=== PATIENT | male | born 1965 | race Hispanic/Latino ===

== ENCOUNTER 2017-04-16 10:59 | Inpatient (IN) | payer OTHER ==
[2017-04-16] VITALS (12 sets, daily range): BP systolic 107–144; BP diastolic 66–80; PULSE 80–103; RESP 17–32; O2SAT 89–98
[~2017-04-16] VITALS: Ht 172.7 cm; Wt 83.2 kg
[~2017-04-16 10:59] MED LIST: NPR500T PO; NYST15OI TP; OXYC5TAB72 PO
--- NOTE | 2017-04-16 11:13 | ED.REPORT ---
HPI-Dyspnea / Wheezing Date of Service April 16, 2017 ED Provider: Dionicio Garcia MD A healthy 52 year old male who is a life-long nonsmoker presents to the ER accompanied by his complaining of three days of shortness of breath. Associated symptoms include mild substernal discomfort, fatigue, malaise, hemoptysis, and productive cough with white sputum. Yesterday he awakened with headache, subjective fever, chills, and diaphoresis. Symptoms have been treated with Tylenol and ibuprofen. Patient was referred to the department from his urgent care visit just prior to arrival for O2 saturation of 83% on room air. Nursing Notes Stated Complaint: SOB Chief Complaint: Respiratory Distress Nursing Notes Reviewed: Yes Allergies: Coded Allergies: No Known Allergies (Verified , 03/20/16) Scheduled Nystatin/Triamcin (Nystatin-Triamcinolone Ointm) 15 Gm Oint...g. 15 GM TP BID Scheduled PRN Naproxen (Naproxen) 500 Mg Tab 500 MG PO BID PRN PRN For Pain oxyCODONE (oxyCODONE) 5 Mg Tablet 10-20 MG PO Q6H PRN PRN For Moderate Pain General Time Seen by MD: 11:12 Chief Complaint Shortness of breath Hx Obtained From: Patient Arrived By: Walk-in Sudden in Onset?: No Onset Occurred: 3 days ago Symptom Duration: Since onset Location: : Substernal Quality: Painful Severity: Current: Mild Severity: Maximum: Mild Associated with: Reports: Cough, Fever, Hemoptysis Context Related History: Denies: Pulmonary embolism Similar Sx Previous: No Past Medical History Past Medical History Right upper extremity thrombophlebitis Denies: Asthma, COPD, Cancer, Congestive heart failure, Coronary artery disease , Diabetes mellitus, Hypertension, Stroke, Transient ischemic attack Denies: Atrial fibrillation Past Surgical History Hiatal hernia surgery Smoking History Never Smoker Social History Alcohol Use: Denies alcohol use Drug Use: Denies drug use Ambulatory Status Independent Review of Systems Constitutional: Reports: Chills, Fatigue, Fever, Malaise Respiratory: Reports: Hemoptysis, Prod cough, white, Shortness of breath Cardiovascular: Reports: Chest pain Skin: Reports Diaphoresis Complete sys rev & neg: except as marked. GI: Denies: Abdominal pain, Constipation, Diarrhea, Hematemesis, Hematochezia, Nausea, Vomiting Neurologic: Reports: Headache Physical Exam Initial Vital Signs Vital Signs (First) Date Time Temp Pulse Resp B/P Pulse Ox O2 Delivery O2 Flow Rate FiO2 04/16/17 11:01 36.4 91 17 118/75 89 Nasal Cannula 4 Initial VS: Reviewed Head / Eyes: Atraumatic, Normocephalic Abdomen / GI: Soft, Non-tender, No guarding, No rebound, No distention Extremities: Vascular intact, Neuro intact, No swelling, No tenderness Skin: Warm, Dry, No cyanosis Neurologic: Alert, Oriented, Nonfocal General/Constitutional: Awake, Alert, Well developed, Well nourished Neck: Atraumatic, Supple, No meningismus, Full range of motion, No swelling, Non-tender, No masses Respiratory / Chest: No rhonchi, No wheezing, No stridor Rales / Rhonchi: Positive: Rales L up to 2/3, Rales R base (up to 1/2) Tachypneic. Cardiovascular: Heart rate NL, Regular rhythm, Heart sounds NL, Peripheral circulation NL Interpretation & Diagnostics Lab Results Interpretation Result Diagram: 04/16/17 1145 04/16/17 1145 Test 04/16/17 11:45 04/16/17 12:25 White Blood Count 10.8th/mm3 (3.8-10.1) Red Blood Count 5.23mil/mm3 (4.40-5.80) Hemoglobin 16.0g/dL (13.8-17.2) Hematocrit 45.8% (41.0-50.0) Mean Corpuscular Volume 87.6fL (81-100) Mean Corpuscular Hemoglobin 30.6pg (27.0-35.0) Mean Corpuscular Hemoglobin Concent 34.9% (32.0-37.0) Red Cell Distribution Width 12.6% (12.3-15.4) Platelet Count 290bil/L (150-400) Neutrophils (%) (Auto) 85.4% (40-74) Lymphocytes (%) (Auto) 9.1% (14-46) Monocytes (%) (Auto) 3.7% (4-12) Eosinophils (%) (Auto) 1.4% (0-5) Basophils (%) (Auto) 0.2% (0-3) Sodium Level 139mEq/L (134-144) Potassium Level 3.8mEq/L (3.5-5.2) Chloride Level 102mEq/L (97-108) Carbon Dioxide Level 20mmol/L (18-29) Blood Urea Nitrogen 14mg/dL (6-24) Creatinine 0.87mg/dL (0.76-1.27) Estimat Glomerular Filtration Rate 97mL/min (>59) Glucose Level 114mg/dL (60-99) Calcium Level 9.4mg/dL (8.5-10.1) Total Bilirubin 0.6mg/dL (0.0-1.2) Aspartate Amino Transf (AST/SGOT) 26U/L (0-50) Alanine Aminotransferase (ALT/SGPT) 11U/L (0-44) Alkaline Phosphatase 82U/L (25-150) Troponin T 0.010ug/L (0.0-0.011) Pro-B-Type Natriuretic Peptide 257.0pg/mL (0-121) Total Protein 7.4g/dL (6.4-8.4) Albumin 3.3g/dL (3.4-5.0) Procalcitonin 0.19ng/mL (0.00-0.08) Lactic Acid Level 1.2mmol/L (0.4-2.0) ECG Interpretation ECG Interpretation: Sinus rhythm, rate 79 Time: 13:00 Interpreted by: ED physician X-Ray Chest Interpretation Chest Xray Interpretation: FINDINGS: Surgical changes and devices: None. Lungs and pleura: No pleural effusions or pneumothorax. Severe coarse bilateral left greater than right pulmonary opacity is present. Mediastinum: Mediastinal contours appear normal. Heart size is normal. Bones and chest wall: No suspicious bony lesions. Overlying soft tissues appear unremarkable. IMPRESSION: Severe bilateral pneumonia. Dictated by: Celeste Bynum M.D. on 04/16/2017 at 12:19 Approved by: Celeste Bynum M.D. on 04/16/2017 at 12:20 View: Portable, 1 view Interpretation / Wet Read by: Interpret - Radiologist CT Chest Interpretation IMPRESSION: 1. No pulmonary embolus. 2. Severe diffuse pneumonia. 3. Coronary artery disease. Dictated by: Celeste Bynum M.D. on 04/16/2017 at 12:51 Approved by: Celeste Bynum M.D. on 04/16/2017 at 12:52 Study type: CT pulm angiogram Interpretation / Wet Read by: Interpret - Radiologist Re-Eval/Medical Decision Source of Hx: Old records Re-Evaluation/Progress : Time of Eval: 12:10 Re-Evaluation/Progress Note: Completed physical examination and discussed need for admission. Patient is amenable to the plan. All other questions addressed. Consultation : Referral / Consult Name: Nestor Ring Consulted With: Hospitalist Call Returned at: 12:58 Summer Intern: Agrees with eval, Agrees with plan, Accepts admit Counseled Regarding: Diagnosis, Lab results, Need for admission Discharge & Departure Impression: Primary Impression: Pneumonia Disposition: ADMITTED TO HOSPITAL Discharge Condition All VS Reviewed: Yes Condition: Stable Referrals: Massimo Queen DO (PCP) Landen Attestation Portions of this note were transcribed by El Garces. I, Dr. Garcia, personally performed the history, physical exam and medical decision-making; I reviewed and confirmed the accuracy of the information in the transcribed note. Signed by: Landen Su, 04/16/2017 at 13:00 copies to: Massimo Queen Kirk H MD April 16, 2017 11:13 EL GARCES April 16, 2017 11:57
[2017-04-16 11:57] LABS: BASOPHILS % (AUTO) 0.2 % (0-3); EOSINOPHILS % (AUTO) 1.4 % (0-5); MONOCYTES % (AUTO) 3.7 % (4-12); Mean Corpuscular Hemoglobin 30.6 pg (27.0-35.0); Mean Corpuscular Volume 87.6 fL (81-100); NEUTROPHILS % (AUTO) 85.4 % (40-74); Platelet Count 290 bil/L (150-400)
[2017-04-16 12:08] LABS: TROPONIN T 0.01 ug/L (0.0-0.011)
--- NOTE | 2017-04-16 12:21 | DRSVH ---
PROCEDURE: X-RAY CHEST ONE VIEW, PORTABLE ([id number]) INDICATIONS: CHEST PAIN TECHNIQUE: One view of the chest was acquired. COMPARISON: None. FINDINGS: Surgical changes and devices: None. Lungs and pleura: No pleural effusions or pneumothorax. Severe coarse bilateral left greater than ri ght pulmonary opacity is present. Mediastinum: Mediastinal contours appear normal. Heart size is normal. Bones and chest wall: No suspicious bony lesions. Overlying soft tissues appear unremarkable. IMPRESSION: Severe bilateral pneumonia. Dictated by: Celeste Bynum M.D. on 04/16/2017 at 12:19 Approved by: Celeste Bynum M.D. on 04/16/2017 at 12:20
[2017-04-16] MEDS ORDERED: 0.9% Sodium Chloride 1,000 ML IV ONE (12:43)
[2017-04-16] MEDS ORDERED: Azithromycin Inj 500 MG in Dextrose 5% 250 ML IV ONE (12:45)
[2017-04-16] MEDS ORDERED: cefTRIAXone Inj 2,000 MG in Dextrose 5% Minibag Plus 50 ML IV ONE (12:45)
--- NOTE | 2017-04-16 12:54 | DRSVH ---
PROCEDURE: CT ANGIO CHEST PULMONARY EMBOLISM ([id number]) INDICATIONS: INFILTRATE TECHNIQUE: After the administration of intravenous contrast, 2 mm thick sections acquired from the pulmonary api aggie to the posterior costophrenic angles. 3-dimensional maximum intensity projection (MIP) coronal a nd sagittal reformats were then acquired through the thorax. For radiation dose reduction, the follo wing was used: automated exposure control, adjustment of mA and/or kV according to patient size. COMPARISON: [facility], CR, XR CHEST 1VW (PORTABLE), 04/16/2017, 11:51. FINDINGS: Image quality: Excellent. Pulmonary arteries: Pulmonary arteries are normal in size, and demonstrate no intraluminal filling d efects to suggest central pulmonary embolism. Lungs and pleura: Severe patchy bilateral groundglass and air space opacities are present, as seen by plain film No pleural effusions or pneumothorax. Central and peripheral airways are patent. Mediastinum: Heart size is enlarged, without pericardial effusion. There is calcification of the cor onary vasculature. No mediastinal or hilar adenopathy. Thoracic aorta is normal in caliber and enhan cement. Esophagus is normal in caliber, without hiatal hernia. Bones and chest wall: No suspicious bony lesions. Ribs and thoracic spine appear intact throughout. Thyroid gland is grossly unremarkable as visualized. No axillary or supraclavicular adenopathy. Abdomen: Visualized upper abdominal solid organs appear normal in the early arterial phase of enhanc ement. IMPRESSION: 1. No pulmonary embolus. 2. Severe diffuse pneumonia. 3. Coronary artery disease. Dictated by: Celeste Bynum M.D. on 04/16/2017 at 12:51 Approved by: Celeste Bynum M.D. on 04/16/2017 at 12:52
[2017-04-16] MEDS ORDERED: NAPR250T PO (13:52)
[2017-04-16] MEDS ORDERED: Alum-Mag Hydrox-Simeth 30 mL Suspension PO PRN ×2 (14:15→14:20)
[2017-04-16] MEDS ORDERED: Polyethylene Glycol (PEG) 17 Gm Powder PO PRN (14:15)
[2017-04-16] MEDS ORDERED: Ondansetron 2 mg/mL 2 mL Inj IVPUSH PRN ×2 (14:15→14:20)
--- NOTE | 2017-04-16 14:25 | NUR ---
Admission Pt arrived on [facility] to Rm 3030. A/Ox3 accompanied by spouse, no complains of pain, 14 L O2 via Oxy mask sating 90%. Pt able to transfer self from [place] to bed with minimal assistance. IV abx infusing at 200 mls/hr. Oriented to room, call light, and visiting hours. Call light with in reach, will continue to monitor.
--- NOTE | 2017-04-16 14:53 | PCM.HPMED ---
Subjective Date of Service April 16, 2017 Primary Provider: Admitting Physician: Nestor Ring Primary Care Physician: Massimo Queen DO Attending Physician: Nestor Ring Chief Complaint: shortness of breath, not feeling well History of Present Illness: 52 year old male who is generally healthy with past medical history notable for hypercholesterolemia and low testosterone presents with 2 days of ongoing and worsening generalized malaise, cough, fever, chills, and shortness of breath. He first noted getting tired with minimal exertion about 2 days ago. Then last night had subjective fever and this morning had fever and chills. He was having non-productive cough initially but this morning thinks he saw some blood in his sputum. He initially presented to urgent care and was noted to be hypoxemic on room air and was sent to ED. Patient notes that after receiving supplemental oxygen he started feeling much better and a headache that he was developing resolved. He denies any recent sick contacts or travel other than attending a one week ago at [place]. He denies any prior episodes of pneumonia or respiratory issues. He does endorse about 10 lb weight loss in past couple of months which he attributes to change in his diet. He further reports chronic tingling in his finger and right leg over the past 2 years that is being worked up by his primary care provider as outpatient. In ED he has received a dose of IV Rocephin and Azithromycin. Review of Systems: Constitutional: Negative, except as otherwise mentioned in the history above. Ophthalmologic: Negative, except as otherwise mentioned in the history above. Cardiovascular: Negative, except as otherwise mentioned in the history above. Respiratory: Negative, except as otherwise mentioned in the history above. Gastrointestinal: Negative, except as otherwise mentioned in the history above. Genitourinary: Negative, except as otherwise mentioned in the history above. Musculoskeletal: Negative, except as otherwise mentioned in the history above. Neurological: Negative, except as otherwise mentioned in the history above. Psychiatric: Negative, except as otherwise mentioned in the history above. Hematologic/Lymphatic: Negative, except as otherwise mentioned in the history above. Allergic/Immunologic: Negative, except as otherwise mentioned in the history above. Allergies Coded Allergies: No Known Allergies (Verified , 03/20/16) Home Medications Denies any home meds Exam Vital Signs & I/O Vital Sign- Last 8 Hours Date Time Temp Pulse Resp B/P Pulse Ox O2 Delivery O2 Flow Rate FiO2 04/16/17 14:25 37.1 89 24 107/72 90 OxyMask 14.00 04/16/17 13:35 36.6 80 20 136/77 96 Simple Mask 12 04/16/17 11:01 36.4 91 17 118/75 89 Nasal Cannula 4 Lab & Micro Results Laboratory Tests Test 04/16/17 11:45 04/16/17 12:25 White Blood Count 10.8th/mm3 (3.8-10.1) Red Blood Count 5.23mil/mm3 (4.40-5.80) Hemoglobin 16.0g/dL (13.8-17.2) Hematocrit 45.8% (41.0-50.0) Mean Corpuscular Volume 87.6fL (81-100) Mean Corpuscular Hemoglobin 30.6pg (27.0-35.0) Mean Corpuscular Hemoglobin Concent 34.9% (32.0-37.0) Red Cell Distribution Width 12.6% (12.3-15.4) Platelet Count 290bil/L (150-400) Neutrophils (%) (Auto) 85.4% (40-74) Lymphocytes (%) (Auto) 9.1% (14-46) Monocytes (%) (Auto) 3.7% (4-12) Eosinophils (%) (Auto) 1.4% (0-5) Basophils (%) (Auto) 0.2% (0-3) Sodium Level 139mEq/L (134-144) Potassium Level 3.8mEq/L (3.5-5.2) Chloride Level 102mEq/L (97-108) Carbon Dioxide Level 20mmol/L (18-29) Blood Urea Nitrogen 14mg/dL (6-24) Creatinine 0.87mg/dL (0.76-1.27) Estimat Glomerular Filtration Rate 97mL/min (>59) Glucose Level 114mg/dL (60-99) Calcium Level 9.4mg/dL (8.5-10.1) Total Bilirubin 0.6mg/dL (0.0-1.2) Aspartate Amino Transf (AST/SGOT) 26U/L (0-50) Alanine Aminotransferase (ALT/SGPT) 11U/L (0-44) Alkaline Phosphatase 82U/L (25-150) Troponin T 0.010ug/L (0.0-0.011) Pro-B-Type Natriuretic Peptide 257.0pg/mL (0-121) Total Protein 7.4g/dL (6.4-8.4) Albumin 3.3g/dL (3.4-5.0) Procalcitonin 0.19ng/mL (0.00-0.08) Lactic Acid Level 1.2mmol/L (0.4-2.0) Microbiology 04/16/17 Blood Culture, Received Pending Result Diagram: 04/16/17 1145 04/16/17 1145 PMH 1. Hypercholesterolemia 2. Low testosterone level Surgical History Hernia repair Family History Sister with colon cancer in her 70's. Father had stroke. Social History Hx Alcohol Use: Yes ("Sometimes") Hx Substance Use: No Hx Tobacco Use: No Smoking Status: Never Smoker Exam Vital Signs Vital Sign - Last Date Time Temp Pulse Resp B/P Pulse Ox O2 Delivery O2 Flow Rate FiO2 04/16/17 14:25 37.1 89 24 107/72 90 OxyMask 14.00 General: Alert, Oriented X3, Cooperative, No Acute Distress Head: Normal Eyes: PERRLA, EOMI, Scleral Anicteric Nose: Mucous Membr Moist/Brodnax Mouth: Mucous Membr Moist/Brodnax Neck: Supple Chest & Lungs: Chest Wall Normal, Clear to auscultation & percussion Cardiovascular: Regular Rate/Rhythm Pulses: NL carotid, radial, femoral, DP, PT Abdomen: Non-tender, Non-distended, Normoactive bowel tones Extremities: No cyanosis/clubbing/edma bilat Skin: Other (no ulcer or rash) Neurological: Grossly Neurologically Intact, Normal Speech Lymphatic: Other Lymph Nodes (no significant lymphadenopathy) Lab and Diagnostics Result Diagram: 04/16/17 1145 04/16/17 1145 X-Rays, CTs and MRIs Date of Service: 04/16/17 1150 PROCEDURE: X-RAY CHEST ONE VIEW, PORTABLE ([id number]) IMPRESSION: Severe bilateral pneumonia. Dictated by: Celeste Bynum M.D. on 04/16/2017 at 12:19 Approved by: Celeste Bynum M.D. on 04/16/2017 at 12:20 Date of Service: 04/16/17 1214 PROCEDURE: CT ANGIO CHEST PULMONARY EMBOLISM ([id number]) IMPRESSION: 1. No pulmonary embolus. 2. Severe diffuse pneumonia. 3. Coronary artery disease. Dictated by: Celeste Bynum M.D. on 04/16/2017 at 12:51 Approved by: Celeste Bynum M.D. on 04/16/2017 at 12:52 12-lead ECG SR. no significant ST elevation/depression. Assessment & Plan 52 year old male who is generally healthy with past medical history notable for hypercholesterolemia and low testosterone presents with 2 days of ongoing and worsening generalized malaise, cough, fever, chills, and shortness of breath. # Acute community acquired pneumonia, present on admission. - Continue with IV Ceftriaxone and Azithromycin started in ED - Check sputum culture - Urine legionella and strep Ag - Respiratory PCR - Continue with supportive care # Acute hypoxic respiratory failure, present on admission. - Due to bilateral pneumonia noted above - Continue pneumonia treatment noted above - Supplemental Oxygen to keep sat greater than 90% # Reported possible hemoptysis prior to presentation - Likely due to pneumonia noted above - Followup h/h - For DVT prophylaxis will place on SCD instead of heparin for now # History of hypercholesterolemia. - Followed by his primary care provider as outpatient. Will defer further management to outpatient setting for now # History of low testosterone. - Followed by his primary care provider as outpatient. Will defer further management to outpatient setting for now Expected length of hospital stay is greater than 2 midnights and likely 2-3 days GI Prophylaxis: Not indicated VTE Prophylaxis: SCDs Resuscitation Status: CPR: Attempt Resuscitation (discussed and verified with patient) Time spent 60 min Nestor Ring April 16, 2017 14:53
--- NOTE | 2017-04-16 16:46 | NUR ---
Increased RR/decreased sats Resp Rate increased to 24. O2 sats between 88-90% on 14 L O2 via Oxy mask. RT contacted, assessed pt, recommends Pt be placed on Hi flow mask. MD aware, pt to be transferred to [facility]. IV Morphine given. Will continue to monitor. Addendum: 04/16/17 at 1709 by REJI BECKFORD RN Report called to Jessica Curtis Pt to be transferred to room 2006. Belongings gathered for transfer, spouse at bedside.
--- NOTE | 2017-04-16 17:41 | ABG ---
DateTimeAnalyzed 17:28:00 -_ pH ____7.473 - 7.350 7.450 pCO2 ___30.9__ -mmHg 35.0 45.0 pO2 ___75.3__ -mmHg 69.0 116 HCO3- ___22.3__ -mmol/L 22.0 26.0 ABE ____0.1__ -mmol/L -2.0 2.0 tHb ___14.8__ -g/dL O2Hb ___92.8__ -% COHb ____2.4__ -% MetHb ____0.9__ -% sO2 ___96.0__ -% 25.0 FIO2 __100.0__ -% Drawn By jmw - Date/Time Notified____ 17:40:00 -_ Liter_Flow ___40.0__ -L/min Oxygen Device 1 _HIGHFLOW - Notified By jmw - Notified Whom DR TALEGHANI - B 755 -mmHg tO2 ___19.3__ -Vol% Edvin test _Positive -
--- NOTE | 2017-04-16 18:06 | NUR ---
P: Respiratory Distress I: Pt brought down from 3rd floor on NRB 15 liters with sats 90%. ABG drawn and PO2 70's. Dr. Renteria called and orders for ABG and PCC tele received. Pt sips of water only until effectiveness of high flow evaluated. Pt and understand need for NPO and possibility of bipap or intubation if pt worsens. Saline lock x2 patent without redness or swelling at the site. Voided about 500cc /urinal but pt's emptied it. Pt needs UA and strict I&O and both and pt educated about that. Cup placed at bedside for sputum sample. PCR nasal swab done. High flow 100% with 40Liters and sats 95%. Continuous sats on at bedside. ST 100's. Temp 37.4. Pt received Morphine upstairs that he states helped with his extreme SOB. E: Guarded S: Alert and Oriented. Uses call light appropriately. Frequent rounding.
[2017-04-16 21:20] LABS: APPEARANCE,URINE CLEAR (CLEAR,HAZY); COLOR,URINE YELLOW (YELLOW); OCCULT BLOOD,URINE NEGATIVE (NEGATIVE); UROBILINOGEN,URINE NORMAL (NORMAL)
[2017-04-17] VITALS (13 sets, daily range): BP systolic 103–134; BP diastolic 67–74; PULSE 83–103; RESP 24–40; O2SAT 90–100
[2017-04-17 03:31] LABS: BASOPHILS % (AUTO) 0.2 % (0-3); EOSINOPHILS % (AUTO) 2.1 % (0-5); MONOCYTES % (AUTO) 4.3 % (4-12); Mean Corpuscular Volume 88.6 fL (81-100); NEUTROPHILS % (AUTO) 84.2 % (40-74); Platelet Count 244 bil/L (150-400)
[2017-04-17 03:47] LABS: INR 1.05 ratio
[2017-04-17 03:54] LABS: Magnesium 2.1 mg/dL (1.6-2.6)
--- NOTE | 2017-04-17 05:29 | NUR ---
Pain/ Respiratory: Pt c/o intermittent headache and lower back pain not controlled by Tylenol. MD notified and order relieved for PO Roxicodone. Med given with good results- pt sleeping throughout majority of the night. Pt remains on high lex at 60L and 100%- sp02 monitored via [employer] TESTING TECHNICIAN. Pt does desat into the low 80s with even minimal activity. Bedrest encouraged.
--- NOTE | 2017-04-17 11:26 | PCM.PNMED ---
Subjective Date of Service April 17, 2017 Subjective The patient continues to have productive cough and intermittent fevers and chills but is overall improving. His appetite is coming back. He has a mild headache. He feels weak. No nausea, or diarrhea. No abdominal pain. No overnight events Exam Vital Signs Vital Sign - Last Date Time Temp Pulse Resp B/P Pulse Ox O2 Delivery O2 Flow Rate FiO2 04/17/17 09:25 83 04/17/17 07:44 36.5 28 110/72 97 high flow 100 04/17/17 07:22 60 Intake and Output 04/16/17 04/16/17 04/17/17 Cumulative From/Thru 15:00 23:00 07:00 04/16/17 11:01 - 04/17/17 06:07 Intake Total 109 ml 400 ml 509 ml Output Total 300 ml 300 ml Balance 109 ml 100 ml 209 ml Intake Oral 400 ml 400 ml IV Total 109 ml 109 ml Output Urine Total 300 ml 300 ml # Voids 1 1 Exam Alert and oriented -3, no distress. Fluent speech Anicteric sclera. Lungs are notable for diffuse rales with normal rate and effort, he is on high flow nasal cannula oxygen. Heart is regular without murmur gallop or rub Abdomen soft nontender, flat Extremities are free of edema. Skin is free of rash or lesions. IVs and Medications Medications Reviewed: Medications were reviewed in detail Lab and Diagnostics Result Diagram: 04/17/17 0245 04/17/17 0245 X-Rays, CTs and MRIs Date of Service: 04/16/17 1150 PROCEDURE: X-RAY CHEST ONE VIEW, PORTABLE ([id number]) IMPRESSION: Severe bilateral pneumonia. Dictated by: Celeste Bynum M.D. on 04/16/2017 at 12:19 Approved by: Celeste Bynum M.D. on 04/16/2017 at 12:20 Date of Service: 04/16/17 1214 PROCEDURE: CT ANGIO CHEST PULMONARY EMBOLISM ([id number]) IMPRESSION: 1. No pulmonary embolus. 2. Severe diffuse pneumonia. 3. Coronary artery disease. Dictated by: Celeste Bynum M.D. on 04/16/2017 at 12:51 Approved by: Celeste Bynum M.D. on 04/16/2017 at 12:52 12-lead ECG SR. no significant ST elevation/depression. Assessment & Plan 52 year old male who is generally healthy with past medical history notable for hypercholesterolemia and low testosterone presents with 2 days of ongoing and worsening generalized malaise, cough, fever, chills, and shortness of breath. # Acute community acquired pneumonia, present on admission. Mildly improved. - Continue with IV Ceftriaxone and Azithromycin started in ED - Check sputum culture - Urine legionella and strep Ag - Respiratory PCR - Continue with supportive care Will obtain a 2-D echo as well to assess ventricular function and a sputum culture. # Acute hypoxic respiratory failure, present on admission. Stable on high flow oxygen, nasal cannula. - Due to bilateral pneumonia noted above - Continue pneumonia treatment noted above - Supplemental Oxygen to keep sat greater than 90% # Reported possible hemoptysis prior to presentation, resolved. CT chest angiogram negative for pulmonary embolism. - Likely due to pneumonia noted above - Followup h/h - For DVT prophylaxis will place on SCD instead of heparin for now # History of hypercholesterolemia. By mouth and stable - Followed by his primary care provider as outpatient. Will defer further management to outpatient setting for now # History of low testosterone. By mouth and stable - Followed by his primary care provider as outpatient. Will defer further management to outpatient setting for now Expected length of hospital stay is greater than 2 midnights and likely 2-3 days GI Prophylaxis: Not indicated VTE Prophylaxis: SCDs Resuscitation Status: CPR: Attempt Resuscitation (discussed and verified with patient) Edvin Melendez MD April 17, 2017 11:26
[2017-04-17] MEDS: Azithromycin Inj 500 MG in Dextrose 5% w/Vial Mate 250 ML IV SCH (13:43)
[2017-04-17] MEDS: cefTRIAXone Inj 2,000 MG in Dextrose 5% Minibag Plus 50 ML IV SCH (13:44)
--- NOTE | 2017-04-17 14:43 | DRSVH ---
[facility] [address] [place] [address] Echocardiogram Report Name: MI REED Date : 04/17/2017 Height: 68 in Hospital Exam Location: [facility] Weight: 204 lb Gender: Male BSA: 2.1 m2 : 1965 Age: 52 yrs BP: 110/72 mmHg Reason For Study: Dyspnea Ordering Physician: HOSPITALIST SVerformed By: Reji Head Referring Physician: REY DEY Interpretation Summary The left ventricle is normal in size. The ejection fraction is estimated to be 55-60%. There is a noticable interventricular septal shift that varies with respiration. Paradoxical septal motion is consistent with right ventricular pressure overload. The right ventricle is moderately dilated. The right ventricular systolic function is normal (TAPSE: 3.3 cm). There is mild tricuspid regurgitation. The right ventricular systolic pressure is estimated at 58 mmHg assuming a right atrial pressure of 8 mm Hg. There is moderate pulmonary hypertension. Procedure: A two-dimensional transthoracic echocardiogram with color flow and Doppler was performed. The study quality was technically adequate. A contrast injection of Definity was performed to improve assessment of LV function. There is no prior echocardiogram noted for this patient. The patient was in normal sinus rhythm during the exam. Left Ventricle: The left ventricle is normal in size. There is normal left ventricular wall thickness. The ejection fraction is estimated to be 55-60%. There is a noticable interventricular septal shift that varies with respiration. Paradoxical septal motion is consistent with right ventricular pressure overload. The E/E' ratio is mildly increased, suggesting possible increased filling pressures. Right Ventricle: The right ventricle is moderately dilated. The right ventricular systolic function is normal. Atria: The left atrial size is normal. The right atrium is mild to moderately dilated. A prominent eustachian valve is noted. There is no Doppler evidence for an atrial septal defect. Mitral Valve: The mitral valve leaflets are slightly calcified. Redundant elongated chordae are noted. There is no mitral regurgitation noted. Aortic Valve: The aortic valve is slightly calcified. The aortic valve is trileaflet. The aortic valve opens well. There is no aortic valve stenosis. No aortic regurgitation is present. Tricuspid Valve: The tricuspid valve is normal. There is mild tricuspid regurgitation. The right ventricular systolic pressure is estimated at 58 mmHg assuming a right atrial pressure of 8 mm Hg. There is moderate pulmonary hypertension. Pulmonic Valve: The pulmonic valve is not well seen, but is grossly normal. There is no pulmonic valvular regurgitation. Great Vessels: The aortic root is mildly dilated. The ascending aorta is at the upper limits of normal in size. The pulmonary artery is normal size. The IVC is dilated (diameter is greater than 2.1 cm) yet it collapses greater than 50% with a sniff. This suggests a right atrial pressure of 8 mm Hg. Pericardium/ Pleura There is no pericardial effusion. There is no pleural effusion. MMode/2D Measurements & Calculations LVIDd: 4.7 cm RA long axis LVOT diam LVIDs: 3.2 cm LA A2 area: 14.3 cm FS: 31.0 % LA A4 area: 15.9 cm RA area AoV Opening EPSS: 0.48 cm LA length (vol): 5.1 cm IVSd: 0.87 cm LA vol: 37.8 ml : 23.9 cm Ao root diam LVPWd: 0.95 cm LA vol index RA vol : 83.7 ml asc Aorta RA Diam: 3.4 cm IVC diam: 2.2 cm : 40.6 mm2 LV tsai. diameter/BSA LV sys. diameter/BSA TAPSE: 2.4 cm (cm/m^2): 2.3 (cm/m^2): 1.6 Doppler Measurements & Calculations Ao V2 max: 148.7 cm/sec MV E max pravin MV E/A: 1.2 TR max pravin Ao max P.8 mmHg : 67.0 cm/sec : 354.1 cm/sec Ao mean P.2 mmHg MV A max pravin TR max PG LVOT Max Pravin : 55.8 cm/sec : 50.1 mmHg : 107.5 cm/sec PA V2 max ISAC(I,D): 3.6 cm : 65.7 cm/sec sev ratio: 0.73 PA mean PG : 1.3 mmHg MV dec time: 0.19 sec Ao V2 mean LV V1 max PG PA V2 mean : 110.1 cm/sec : 55.0 cm/sec Ao V2 VTI: 23.6 cm LV V1 VTI PA pr(Accel) ISAC(V,D): 3.6 cm2 : 17.4 cm : 46.3 mmHg ISAC indexed to BSA (cm^2/m^2): 1.8 Reading Physician:PM
--- NOTE | 2017-04-17 18:29 | NUR ---
Pain/High Flow Cardiac: pt denies CP, Tele: SR 70-80s Resp: Pt reports he is having an easier time breathing especially after he cleared his nostrils this AM. RR still high at 32. SPO2 96-97% on 60L High Flow FIO2 100% at morning assessment. After discussion with RT, keeping pt NPO this aM to protect his airway while on such high flow. Pt allowed to eat this afternoon, instructed to eat slowly. morphine given this afternoon for increased RR and decreased SPO2 down to 92-93%. Pt reported he felt better, SPO2 remains 92-93% GI/: Pt denies n/v/d. very dark hermila urine this afternoon. Neuro: a/ox3. SUNG bedrest r/t resp status.
[2017-04-18] VITALS (14 sets, daily range): BP systolic 107–131; BP diastolic 62–84; PULSE 86–95; RESP 20–42; O2SAT 88–99
--- NOTE | 2017-04-18 04:52 | NUR ---
Respiratory/ Pain Pt remains on High flow @60L and 100%. sp02 monitored via TOURIST INFORMATION OFFICER. Sats low 90s, RR 20-30s. r pt does desat with even the slightest of activity. Morphine given x2 for increasing air hunger. PRN Roxicodone and tylenol given intermittently overnight for generalized head and back pain. Addendum: 04/18/17 at 0535 by PHILLIP ROSS RN Pt very labored breathing this am. States he feels like he aspirated on a sip of water. Pt made NPO. notified of pt increased respirtory efforts. ABG ordered. RT at bedside. Addendum: 04/18/17 at 0559 by PHILLIP ROSS RN ABG resulted. Dr. Sims states to place pt on BIPAP. RT notified.
--- NOTE | 2017-04-18 05:46 | ABG ---
DateTimeAnalyzed 05:41:00 -_ pH ____7.449 - 7.350 7.450 pCO2 ___36.9__ -mmHg 35.0 45.0 pO2 ___64.3__ -mmHg 69.0 116 HCO3- ___25.2__ -mmol/L 22.0 26.0 ABE ____1.9__ -mmol/L -2.0 2.0 tHb ___15.1__ -g/dL O2Hb ___91.1__ -% COHb ____1.3__ -% MetHb ____0.9__ -% sO2 ___93.2__ -% 25.0 FIO2 __100.0__ -% Drawn By blf - Date/Time Notified____ 05:46:00 -_ Spontaneous_RR ___36.0__ -b/min Liter_Flow ___60.0__ -L/min Oxygen Device 1 high flow nc - Notified By blf - Notified Whom Yumiko Roe RN - B 755 -mmHg tO2 ___19.3__ -Vol% OrderingPhysicianInitials mf - Edvin test _Positive -
[2017-04-18] MEDS: LORazepam 0.5 mg Tablet PO PRN (08:13)
--- NOTE | 2017-04-18 10:18 | PCM.PNMED ---
Subjective Date of Service April 18, 2017 Subjective He was placed on BiPAP last night is comfortable on BiPAP at 100%. He has good mentation. He denies cough. No fevers or chills overnight. He does have a headache. He denies any abdominal pain nausea vomiting or diarrhea. Overnight events included a blood gas and BiPAP. Exam Vital Signs Vital Sign - Last Date Time Temp Pulse Resp B/P Pulse Ox O2 Delivery O2 Flow Rate FiO2 04/18/17 08:00 89 36 97 100 04/18/17 07:21 36.7 124/80 BiPAP 04/18/17 04:30 60 Intake and Output 04/17/17 04/17/17 04/18/17 Cumulative From/Thru 15:00 23:00 07:00 04/16/17 11:01 - 04/18/17 05:18 Intake Total 2330 ml 800 ml 3639 ml Output Total 1550 ml 1000 ml 2850 ml Balance 780 ml -200 ml 789 ml Intake Oral 2030 ml 800 ml 3230 ml IV Total 300 ml 409 ml Output Urine Total 1550 ml 1000 ml 2850 ml # Voids 1 # Bowel Movements 0 0 Exam Alert and oriented -3, no distress. He is comfortable on BiPAP. Anicteric sclera. Lungs are clear with normal rate and effort on BiPAP, basilar rales. Heart is regular without murmur gallop or rub Abdomen soft nontender, flat Extremities are free of edema. Skin is free of rash or lesions. IVs and Medications Medications Reviewed: Medications were reviewed in detail Lab and Diagnostics Result Diagram: 04/17/17 0245 04/17/17 0245 X-Rays, CTs and MRIs Date of Service: 04/16/17 1150 PROCEDURE: X-RAY CHEST ONE VIEW, PORTABLE ([id number]) IMPRESSION: Severe bilateral pneumonia. Dictated by: Celeste Bynum M.D. on 04/16/2017 at 12:19 Approved by: Celeste Bynum M.D. on 04/16/2017 at 12:20 Date of Service: 04/16/17 1214 PROCEDURE: CT ANGIO CHEST PULMONARY EMBOLISM ([id number]) IMPRESSION: 1. No pulmonary embolus. 2. Severe diffuse pneumonia. 3. Coronary artery disease. Dictated by: Celeste Bynum M.D. on 04/16/2017 at 12:51 Approved by: Celeste Bynum M.D. on 04/16/2017 at 12:52 12-lead ECG SR. no significant ST elevation/depression. Cardiac Echo Impressions Interpretation Summary The left ventricle is normal in size. The ejection fraction is estimated to be 55-60%. There is a noticable interventricular septal shift that varies with respiration. Paradoxical septal motion is consistent with right ventricular pressure overload. The right ventricle is moderately dilated. The right ventricular systolic function is normal (TAPSE: 3.3 cm). There is mild tricuspid regurgitation. The right ventricular systolic pressure is estimated at 58 mmHg assuming a right atrial pressure of 8 mm Hg. There is moderate pulmonary hypertension. Assessment & Plan 52 year old male who is generally healthy with past medical history notable for hypercholesterolemia and low testosterone presents with 2 days of ongoing and worsening generalized malaise, cough, fever, chills, and shortness of breath. # Acute community acquired pneumonia, present on admission. Stable. The patient has required BiPAP for oxygenation.. - Continue with IV Ceftriaxone and Azithromycin started in ED - Check sputum culture - Urine legionella and strep Ag - Respiratory PCR Echo reveals pulmonary hypertension, moderate with hypokinesis of the right ventricle. No left ventricular systolic dysfunction or significant valvular disease. - Continue with supportive care, will repeat chest x-ray today. We will also discuss case with Dr. Kimberly swann. # Acute hypoxic respiratory failure, present on admission. Stable. Patient was placed on BiPAP from high flow nasal cannula and is doing reasonably well. His FiO2 need is 100%. - Due to bilateral pneumonia noted above - Continue pneumonia treatment noted above - Supplemental Oxygen to keep sat greater than 90% # Reported possible hemoptysis prior to presentation, resolved. CT chest angiogram negative for pulmonary embolism. - Likely due to pneumonia noted above - Followup h/h - For DVT prophylaxis will place on SCD instead of heparin for now # History of hypercholesterolemia. By mouth and stable - Followed by his primary care provider as outpatient. Will defer further management to outpatient setting for now # History of low testosterone. By mouth and stable - Followed by his primary care provider as outpatient. Will defer further management to outpatient setting for now Expected length of hospital stay is greater than 2 midnights and likely 3-5 days GI Prophylaxis: Not indicated VTE Prophylaxis: SCDs Resuscitation Status: CPR: Attempt Resuscitation (discussed and verified with patient) Edvin Melendez MD April 18, 2017 10:18
[2017-04-18] MEDS: 0.9% Sodium Chloride 1,000 ML IV SCH ×2 (10:49→21:44)
[2017-04-18] MEDS: cefTRIAXone Inj 2,000 MG in Dextrose 5% Minibag Plus 50 ML IV SCH (12:58)
[2017-04-18] MEDS: Azithromycin Inj 500 MG in Dextrose 5% w/Vial Mate 250 ML IV SCH (12:59)
--- NOTE | 2017-04-18 13:32 | DRSVH ---
PROCEDURE: X-RAY CHEST ONE VIEW, PORTABLE ([id number]) INDICATIONS: dyspnea TECHNIQUE: One view of the chest was acquired. COMPARISON: [facility], CT, CT ANGIO CHEST PE, 04/16/2017, 12:27. [facility] , CR, XR CHEST 1VW (PORTABLE), 04/16/2017, 11:51. FINDINGS: Surgical changes and devices: None. Lungs and pleura: Diffuse, widespread bilateral pulmonary interstitial and air space opacities are p resent which have increased within the right upper lobe when compared to prior examination. Mediastinum: Mediastinal contours appear normal. Heart size is normal. Bones and chest wall: No suspicious bony lesions. Overlying soft tissues appear unremarkable. IMPRESSION: Increase in patchy consolidative opacity within the right upper lobe compared to prior ex amination otherwise persistent bilateral widespread pulmonary opacities consistent with multifocal bi lateral pneumonia and/or pulmonary edema. Dictated by: Philip Nguyen RRAnge Interpreted: Arvind Irby MD on 04/18/2017 at 13:30 Transcribed by: STU on 04/18/2017 at 13:31 Approved by: Arvind Irby M.D. on 04/18/2017 at 15:13
--- NOTE | 2017-04-18 16:47 | NUR ---
Bipap/Pain Cardiac: pt denies CP, Tele: SR 70-80s Resp: Pt on Bipap this shift, SPO2 97-98%. RR 35-44. Pt given ativan this AM for anxiety rt bipap. Pt able to relax and RR decreased to mid 30s. RR mid 20s to 30 when pt asleep, higher when awake. Tolerating bipap very well. GI/: Pt denies n/v/d. Dark urine this AM. Pt NPO while on Bipap except for pills. NS started at 100ml/hr. Neuro: A&O x3. bedrest encouaged r/t resp status. Pt reporting headache and shoulder pain from staying in bed. Tylenol and roxicodone effective. Oxycodone dose increased from 5 to 10mg today for better pain management. Most pain complaints from pt this shift are for his head and have been adequately controlled. Addendum: 04/18/17 at 1757 by ROHTIH CALVILLO RN Bipap FIO2 titrated down to 80% by RT this evening. SPO2 95-96%, RR 32-33.
--- NOTE | 2017-04-18 16:47 | NUR ---
Social Work Note: Screen Note Data& Assessment: EMR reviewed. Uli Yen is a 52 year old male admitted on 04/16/2017 for CAP. Pt is currently on high flow and aspirating on water per RN in morning rounds. Pt has [employer] insurance coverage and lives in [place] with his significant other. Pt is independent at baseline. SW to follow for medical progression and MD orders. Plan: Anticipated discharge home via POV. SW to follow for respirator needs, medical progression and MD orders. MALACHI Richter
[2017-04-19] VITALS (13 sets, daily range): BP systolic 102–122; BP diastolic 63–71; PULSE 86–97; RESP 24–34; O2SAT 94–98
--- NOTE | 2017-04-19 02:35 | NUR ---
NOC - BIPAP / PAIN Tolerating bipap thru NOC, spo2 remains mid-high 90's. desat to 88% x 1 at begin of shift during med administration, recovers quickly once mask reapplied. Removes mask slightly during meds to take sips of water. Reports generalized pain r/t bedrest. PRN Morphine 2mg given x 1 w/ good effect of decreasing BTP and lowering RR slightly. RR 28 at this time. PRN oxycodone/apap given at HS w/ good effect, patient appears to be resting comfortably w/ no c/o. overnight at bedside. Tele: SR 93 w/ PVC's. contact iso for MRSA nares. Call light w/in reach, CTM for changes.
[2017-04-19] MEDS: 0.9% Sodium Chloride 1,000 ML IV SCH ×2 (07:49→16:20)
[2017-04-19] MEDS: Azithromycin Inj 500 MG in Dextrose 5% w/Vial Mate 250 ML IV SCH (14:26)
[2017-04-19] MEDS: cefTRIAXone Inj 2,000 MG in Dextrose 5% Minibag Plus 50 ML IV SCH (14:27)
[2017-04-19] MEDS: LORazepam 0.5 mg Tablet PO PRN ×2 (14:29→21:13)
[2017-04-19] MEDS: Vancomycin Dose per Pharmacist XX SCH (15:45)
--- NOTE | 2017-04-19 15:52 | PCM.PNMED ---
Subjective Date of Service Apr 19, 2017 Subjective Follow-up for tinnitus E failure and bilateral community-acquired pneumonia. Patient seen and examined at bedside, current plan of care, x-ray and lab data reviewed. Plan of care discussed with nursing staff. Patient is somewhat better today but still on and off BiPAP and acute respiratory failure. Exam Vital Signs Vital Sign - Last Date Time Temp Pulse Resp B/P Pulse Ox O2 Delivery O2 Flow Rate FiO2 04/19/17 12:48 95 60 04/19/17 12:45 28 04/19/17 12:34 36.9 96 116/69 BiPAP 04/18/17 04:30 60 Intake and Output 04/18/17 04/18/17 04/19/17 Cumulative From/Thru 15:00 23:00 07:00 04/16/17 11:01 - 04/19/17 06:26 Intake Total 825 ml 1548 ml 6012 ml Output Total 750 ml 400 ml 4000 ml Balance 75 ml 1148 ml 2012 ml Intake Oral 0 ml 200 ml 3430 ml IV Total 825 ml 1348 ml 2582 ml Output Urine Total 750 ml 400 ml 4000 ml # Voids 1 # Bowel Movements 0 Exam Gen : ill appearing, in mild distress, on BiPAP HEENT : On BiPAP. Sclerae is anicteric Chest : Labored respiratory effort Neck: No stridor, no JVD, trachea is midline Lungs: Bilateral crackles. No wheezing Heart: S1, S2 regular tendon negative for murmur Abdomen: Benign. Bowel sounds normal quadrant Extremity: No edema, no calf tenderness, no cyanosis Skin: No rash, no ulcers Neuro : Grossly non focal IVs and Medications Medications Reviewed: Medications were reviewed in detail Lab and Diagnostics Result Diagram: 04/17/17 0245 04/17/17 0245 X-Rays, CTs and MRIs Date of Service: 04/16/17 1150 PROCEDURE: X-RAY CHEST ONE VIEW, PORTABLE ([id number]) IMPRESSION: Severe bilateral pneumonia. Dictated by: Celeste Bynum M.D. on 04/16/2017 at 12:19 Approved by: Celeste Bynum M.D. on 04/16/2017 at 12:20 Date of Service: 04/16/17 1214 PROCEDURE: CT ANGIO CHEST PULMONARY EMBOLISM ([id number]) IMPRESSION: 1. No pulmonary embolus. 2. Severe diffuse pneumonia. 3. Coronary artery disease. Dictated by: Celeste Bynum M.D. on 04/16/2017 at 12:51 Approved by: Celeste Bynum M.D. on 04/16/2017 at 12:52 12-lead ECG SR. no significant ST elevation/depression. Cardiac Echo Impressions Interpretation Summary The left ventricle is normal in size. The ejection fraction is estimated to be 55-60%. There is a noticable interventricular septal shift that varies with respiration. Paradoxical septal motion is consistent with right ventricular pressure overload. The right ventricle is moderately dilated. The right ventricular systolic function is normal (TAPSE: 3.3 cm). There is mild tricuspid regurgitation. The right ventricular systolic pressure is estimated at 58 mmHg assuming a right atrial pressure of 8 mm Hg. There is moderate pulmonary hypertension. Assessment & Plan 52 year old male who is generally healthy with past medical history notable for hypercholesterolemia and low testosterone presents with 2 days of ongoing and worsening generalized malaise, cough, fever, chills, and shortness of breath. 1. Community acquired pneumonia, present on admission. -This is an atypical presentation with bilateral pneumonia and acute respiratory failure in a gentleman with few past medical problems - Continue with IV Ceftriaxone and Azithromycin. -Nasal swab is positive for MRSA. Given the atypical presentation of his pneumonia I am adding vancomycin - Urine legionella and strep Ag negative 2. Acute hypoxic respiratory failure, present on admission. Due to # 1 - BiPAP PRN . - Nebulizer bronchodilators, aggressive pulmonary toilets 3. Pulmonary hypertension : By echocardiography. Moderate with hypokinesis of the right ventricle. No left ventricular systolic dysfunction or significant valvular disease. 4. Reported possible hemoptysis prior to presentation, resolved. This is due to pneumonia and cough. CT chest angiogram negative for pulmonary embolism. - Likely due to pneumonia noted above Slowly improving but patient remains very sick and compromised form respiratory standpoint . Repeat chest x-ray in a.m.. Vancomycin added to his antibiotics regimen. Continue BiPAP and not receive pulmonary toilet. Consider consulting pulmonary if no improvement within the next 24 hours GI Prophylaxis: Not indicated VTE Prophylaxis: SCDs Resuscitation Status: CPR: Attempt Resuscitation (discussed and verified with patient) Time spent 35 minutes Syed Zuniga MD Apr 19, 2017 15:52
[2017-04-19] MEDS ORDERED: Vancomycin Inj 2,000 MG in 0.9% Sodium Chloride 500 ML IV ONE (16:10)
--- NOTE | 2017-04-19 17:52 | NUR ---
Bipap Cardiac: pt denies CP, Tele: SR 80-90s Resp: Pt reports he "can take much deeper breaths today". Pt continues on bipap FIO2 80% SPO2 98. Titrated FIO2 down to 70%, pt tolerated well, SPO2 mid 90s. Discussed continuing downward titration of bipap with RT. When pt takes off bipap to drink or brush teeth, his SPO2 drops to 84%, recovers quickly when back on bipap. FIO2 further reduced to 60% SPO2 92-94. Sputum sent this AM, not able to culture. Reeducated pt on just getting sample of sputum, not spit. GI/: Pt denies n/v/d, pt allowed to drink and eat now that his resp. status has improved somewhat. No BM since arriving on PCC, pt says he feels he will have to go soon. Will get up to BSC. Neuro: A&Ox3, SUNG, bedrest for resp. status.
--- NOTE | 2017-04-19 22:02 | NUR ---
ASSUMED CARE @ 213 Report from ANIKA Samuel. Patient appears comfortable, HOB up 30 degrees. tolerating bipap. Taking medications one a time, w/ small sips of h2o. 1 coughing episode, able to clear secretions quickly, recovered well. Desat to 78 for a few seconds; now satting high 90's. Addendum: 04/20/17 at 0401 by TATUM VAUGHAN RN Tolerating bipap in NOC, Fio2 60% Spo2 90-92%.
[2017-04-20] VITALS (13 sets, daily range): BP systolic 114–124; BP diastolic 60–70; PULSE 90–101; RESP 22–47; O2SAT 91–95
[2017-04-20] MEDS: Vancomycin Inj 1,000 MG in IV Premix 1 EACH IV SCH ×3 (00:23→18:08)
[2017-04-20] MEDS: 0.9% Sodium Chloride 1,000 ML IV SCH ×3 (06:00→21:39)
[2017-04-20] MEDS: Vancomycin Dose per Pharmacist XX SCH (07:59)
[2017-04-20 10:56] LABS: BASOPHILS % (AUTO) 0.2 % (0-3); EOSINOPHILS % (AUTO) 1.9 % (0-5); MONOCYTES % (AUTO) 5.9 % (4-12); Mean Corpuscular Hemoglobin 30.8 pg (27.0-35.0); Mean Corpuscular Volume 88.8 fL (81-100); NEUTROPHILS % (AUTO) 84.3 % (40-74); Platelet Count 207 bil/L (150-400)
--- NOTE | 2017-04-20 11:39 | NUR ---
NUTRITION ASSESSMENT: ASSESS: Pt is a 52yo M admitted for CAP. He has been requiring BIPAP. Pulmonary to be consulted today. Currently on Heart Healthy diet but PO intake has been variable due to respiratory status. PO is 0-100%. PO avg is 55%. Pt has not had a BMx4 days. PMHX: hypercholesterolemia LABS: Reviewed. WNL MEDS: Reviewed. GI: 0 BM SKIN: no issues CURRENT WTS: 95.8kg, BMI 32.1kg/m2, IBW 70kg DIET: Heart Healthy, PO 0-100% EST. NEEDS: BMI Kcals: 1915-2110kcal/day (20-22kcal/kg) Pro: 85-105g/day (1.2-1.5g/kg IBW) NUTRITION DIAGNOSIS: 1.) Variable PO intake related to respiratory status as evidence by pt requiring BIPAP and PO ranging from 0-100% NUTRITION INTERVENTION: 1.) Continue to encourage PO intake. If PO avg drops below 50%, consider supps/snacks to help supplement PO intake 2.) Consider bowel meds if pt does not have BM soon MONITOR / EVAL: PO, BM, wt, POC, nutrition status. Will continue to monitor per moderate nutrition risk guidelines.
--- NOTE | 2017-04-20 11:44 | DRSVH ---
PROCEDURE: X-RAY CHEST ONE VIEW, PORTABLE ([id number]) INDICATIONS: pneumonia TECHNIQUE: One view of the chest was acquired. COMPARISON: [facility], CR, XR CHEST 1VW (PORTABLE), 04/16/2017, 11:51. [facility], CR, XR CHEST 1VW (PORTABLE), 04/18/2017, 11:12. FINDINGS: Surgical changes and devices: None. Lungs and pleura: Diffuse, widespread bilateral pulmonary interstitial and air space opacities are p resent and increased from prior examination. No pleural effusion or pneumothorax. Mediastinum: Mediastinal contours appear normal. Heart size is normal. Bones and chest wall: No suspicious bony lesions. Overlying soft tissues appear unremarkable. IMPRESSION: Increasing pulmonary edema and/or diffuse bilateral pneumonia. Developing ARDS cannot be excluded. Dictated by: Philip Nguyen [facility] Interpreted: Mercy Chin MD on 04/20/2017 at 11:42 Transcribed by: GISELA on 04/20/2017 at 11:43 Approved by: Mercy Chin MD, PhD on 04/20/2017 at 13:59
[2017-04-20] MEDS: cefTRIAXone Inj 2,000 MG in Dextrose 5% Minibag Plus 50 ML IV SCH (12:24)
[2017-04-20] MEDS: LORazepam 0.5 mg Tablet PO PRN ×2 (12:26→21:38)
[2017-04-20] MEDS: Azithromycin Inj 500 MG in Dextrose 5% w/Vial Mate 250 ML IV SCH (15:32)
--- NOTE | 2017-04-20 15:47 | CONS ---
[address] [address] CONSULTATION REPORT PATIENT: MI REED : 1965 MR#: [id number] ADMIT: 04/16/2017 JOB ID: [id number] DATE OF SERVICE: 04/20/2017 INFECTIOUS DISEASE CONSULTATION: I thank Dr. Jay Katz for this consult. REASON FOR CONSULTATION: Atypical bilateral progressive pneumonia. 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 He was in his usual state of good health until about a week before this admission when he started to develop slowly progressive shortness of breath. Initially there is no known cause, but after a few days, he developed a largely nonproductive cough and then just before his admission on the 16 of April, he developed fever and chills, all the while with increasing shortness of breath. The patient did note at one point a little bit of blood that came with a largely nonproductive cough. It was noted in Urgent Care that he was hypoxic on room air and he was transferred to the ED. During his five days or so here in the hospital, he has been appropriately treated with broad-spectrum antibiotics as one would use for community-acquired pneumonia, but he has actually gotten somewhat worse in that he now required high flow nasal oxygen and his sats are just barely adequate. He continues to have some degree of headache which has been a part of this illness throughout and he is very short of breath, of course. His cough is essentially nonproductive and a sample I see in a container near the bedside is basically looks like spit. He does not have pleuritic chest pain. He does not have nausea, vomiting, diarrhea or any associated urinary tract symptoms. His partner in the construction business has not become ill and they had been working on the same projects. His significant other is also not ill and the patient knows of no ill contacts he has had. The patient and his significant other have a dog and cat at home but these are pets they have had for a while and they are not sick. There has been no history of travel or any unusual exposures except for some mold and a lot of dust and pet feces in some of the buildings they have been working on. Specifically no contact with rats or mice that he is aware of. PAST MEDICAL HISTORY: Very limited. The patient reports that he has hyperlipidemia and low testosterone levels. Otherwise negative. SOCIAL HISTORY: The patient is an occasional alcohol user who has never smoked. He has never lived overseas or traveled extensively. FAMILY HISTORY: Negative for history of tuberculosis in any first or second degree relatives. REVIEW OF SYSTEMS: Was done. The patient reports he has had a severe headache since the onset of this respiratory illness. No visual changes, however. No runny nose or sore throat whatsoever. No productive cough, though he has obviously had a dry cough with profound and worsening shortness of breath. Fevers, chills and sweats were all noted but in the only last days of the illness just prior to his admission five days ago. No pleuritic chest pain. No nausea, vomiting, diarrhea or dysuria. No swelling of the joints. No skin rash. No neurologic complaints. Remainder of the review of systems was negative. PHYSICAL EXAMINATION: Reveals short of breath, otherwise healthy looking gentleman sitting up in bed in no moderate respiratory distress. He also has high-flow nasal oxygen flowing. He is afebrile and interestingly he has been afebrile since admission, currently 36.7. Recall that he stated that he had fevers prior to admission. Pulse is currently 90 and regular. Respiratory rate in the mid-20s. Blood pressure 114/80. He has never been hypotensive. Pulse ox 93% on high-flow nasal oxygen. The patient is awake and alert but very short of breath. Even speaking in full sentences makes him more dyspneic. Head without trauma. Eyes without conjunctival abnormality. Oral cavity negative. Neck is supple without adenopathy. Lungs notable for dry crackles at the bases bilaterally. These are fairly impressive. Cardiac tones regular rate and rhythm without murmur. The abdomen is soft and nontender. No organomegaly is seen. No suprapubic fullness. No inguinal adenopathy. He has no synovitis in any major joint and no skin rashes noted. He is neurologically intact. No peripheral edema. LABORATORIES: Include a white count of 9500 which is little changed from 10,800 when he came in. The differential has been predominantly left shifted, 85% segs, no metamyelocytes have been seen though and he is not thrombocytopenic. Creatinine is 0.63. LFTs normal except for an alk phos of 162. Albumin 2.4. Multiple procalitonins have been done, all between basically 0.2 and 0.45. Urinalysis without white cells. INR is normal. Urine Legionella and pneumococcal antigens are negative. Blood cultures are negative. Respiratory viral PCR negative. MRSA screen of the nares is positive. A single sputum has been obtained that was very poor quality with largely epithelial cells. X-rays include the admission chest radiograph which showed severe bilateral pneumonia. A CT was done on the which showed severe bilateral ground-glass infiltrates. No pleural effusions or pneumothorax were seen. Today's chest x-ray also shows widespread interstitial bilateral infiltrates. IMPRESSION: This is a severe case of bilateral pulmonary infiltrates which may or may not represent an acute pneumonia caused by an infectious agent. My initial thought was that this likely represents a viral process given the diffuse bilateral nature of it or perhaps Pneumocystis. Hanta virus could also produce a chest x-ray like this as one particular example of a viral process. Arguing against Hanta virus is the lack of hemoconcentration, far left shift of the white count and thrombocytopenia, all of which are usually seen with Hanta. This is not a pattern we would see with a typical bacterial pneumonia. The patient has not improved despite the treatment with agents that would usually be useful in that circumstance. The finding of the MRSA in the nares is hard to know what to do with. This does not appear to be a MRSA pneumonia but I do agree with the addition of vanco or linezolid to cover this possibility. Other diagnostic possibilities here would include an Aspergillus or fungal pneumonia, perhaps related to inflation of these molds at work though I think that is unlikely. Also possible would be that this is a non-infectious pneumonia such as a vasculitis or sarcoid, though these seem awfully fulminant for these processes. RECOMMENDATIONS: 1. Will continue with our broad-spectrum antibiotics which include azithromycin, ceftriaxone, and now vanco. 2. If desired Zyvox 600 p.o. b.i.d. could be substituted for vanco but I think which of these is better is fairly neutral. 3. I have ordered additional diagnostic studies including HIV, hepatitis-C, cryptococcal antigen, QuantiFERON gold, Aspergillus antigen and Hanta virus serology. 4. If the patient should deteriorate to the point that he needs intubation, I think bronchoscopy would be urgently indicated. 5. I have discussed this case in detail with Dr. Katz of the pulmonary team and carefully reviewed the x-rays myself.
[2017-04-20] MEDS ORDERED: Vancomycin Serum Trough XX ONE (16:00)
--- NOTE | 2017-04-20 16:06 | PCM.PNMED ---
Subjective Date of Service Apr 20, 2017 Subjective Follow up for acute respiratory failure and B/L pneumonia Patient remains on BIPAP. Repeat chest X-ray shows worsening edema/infiltrate . He has no chest pain. Exam Vital Signs Vital Sign - Last Date Time Temp Pulse Resp B/P Pulse Ox O2 Delivery O2 Flow Rate FiO2 04/20/17 14:04 95 43 95 60 04/20/17 12:03 36.7 114/60 HIGH FLOW 04/20/17 08:45 60 Intake and Output 04/19/17 04/19/17 04/20/17 Cumulative From/Thru 15:00 23:00 07:00 04/16/17 11:01 - 04/20/17 06:12 Intake Total 2258 ml 1669 ml 9939 ml Output Total 1000 ml 450 ml 5450 ml Balance 1258 ml 1219 ml 4489 ml Intake Oral 1500 ml 400 ml 5330 ml IV Total 758 ml 1269 ml 4609 ml Output Urine Total 1000 ml 450 ml 5450 ml # Voids 1 2 # Bowel Movements 0 0 Exam Gen : ill appearing, in mild distress, on BiPAP HEENT : Sclerae is anicteric. MONICA Chest : Labored respiratory effort Neck: No stridor, no JVD, trachea is midline, no cervical lymphadenopathy Lungs: Bilateral crackles. No wheezing Heart: S1, S2 regular . No murmur Abdomen: Benign. Bowel sounds normal quadrant Extremity: No edema, no calf tenderness, no cyanosis Neuro : AAO x3. Grossly non focal IVs and Medications Medications Reviewed: Medications were reviewed in detail Lab and Diagnostics Result Diagram: 04/20/17 1045 04/20/17 1045 X-Rays, CTs and MRIs Date of Service: 04/16/17 1150 PROCEDURE: X-RAY CHEST ONE VIEW, PORTABLE ([id number]) IMPRESSION: Severe bilateral pneumonia. Dictated by: Celeste Bynum M.D. on 04/16/2017 at 12:19 Approved by: Celeste Bynum M.D. on 04/16/2017 at 12:20 Date of Service: 04/16/17 1214 PROCEDURE: CT ANGIO CHEST PULMONARY EMBOLISM ([id number]) IMPRESSION: 1. No pulmonary embolus. 2. Severe diffuse pneumonia. 3. Coronary artery disease. Dictated by: Celeste Bynum M.D. on 04/16/2017 at 12:51 Approved by: Celeste Bynum M.D. on 04/16/2017 at 12:52 12-lead ECG SR. no significant ST elevation/depression. Cardiac Echo Impressions Interpretation Summary The left ventricle is normal in size. The ejection fraction is estimated to be 55-60%. There is a noticable interventricular septal shift that varies with respiration. Paradoxical septal motion is consistent with right ventricular pressure overload. The right ventricle is moderately dilated. The right ventricular systolic function is normal (TAPSE: 3.3 cm). There is mild tricuspid regurgitation. The right ventricular systolic pressure is estimated at 58 mmHg assuming a right atrial pressure of 8 mm Hg. There is moderate pulmonary hypertension. Assessment & Plan 52 years old male who is generally healthy with past medical history notable for hypercholesterolemia and low testosterone presents with 2 days of ongoing and worsening generalized malaise, cough, fever, chills, and shortness of breath. 1. Community acquired pneumonia, present on admission. -This is an atypical presentation with bilateral pneumonia and acute respiratory failure in a gentleman with few past medical problems - Continue with IV Ceftriaxone and Azithromycin. -Nasal swab is positive for MRSA. Given the atypical presentation of his pneumonia I am adding vancomycin - Urine legionella and strep Ag negative. - HIV testing ordered - Pulmonary and infectious disease to be consulted 2. Acute hypoxic respiratory failure, present on admission. Due to # 1 - BiPAP PRN . - Nebulizer bronchodilators, aggressive pulmonary toilets 3. Pulmonary hypertension : By echocardiography. Moderate with hypokinesis of the right ventricle. No left ventricular systolic dysfunction or significant valvular disease. 4. Reported possible hemoptysis prior to presentation, resolved. This is due to pneumonia and cough. CT chest angiogram negative for pulmonary embolism. - Likely due to pneumonia Patient is still very ill with severe respiratory compromised. Overall worsening clinical picture. He is still on BIAPAP. Repeat chest X-ray shows worsening pulmonary edema and/or diffuse bilateral pneumonia I am afraid he may need intubation at some point if this picture continue its course . Sputum culture and analysis to be repeated . Continue with current antibiotics . Pulmonary and infectious disease consulted Case discussed with pulmonary GI Prophylaxis: Not indicated VTE Prophylaxis: SCDs VTE Mechanical Devices: Intermittant Pneumatic CD Resuscitation Status: CPR: Attempt Resuscitation (discussed and verified with patient) Time spent 35 minutes Syed Zuniga MD Apr 20, 2017 16:06
[2017-04-21] VITALS (14 sets, daily range): BP systolic 113–139; BP diastolic 66–84; PULSE 90–102; RESP 24–45; O2SAT 92–97
--- NOTE | 2017-04-21 | CONS ---
[address] [address] CONSULTATION REPORT PATIENT: MI REED : 1965 MR#: [id number] ADMIT: 04/16/2017 JOB ID: [id number] PULMONARY CONSULTATION: DATE OF SERVICE: 04/20/2017 REQUESTING PHYSICIAN: Syed Zuniga MD. REASON FOR CONSULTATION: Pneumonia. HISTORY OF PRESENT ILLNESS: The patient is a 52-year-old male who was in his usual state of good health until about one week ago developed symptoms of cough, sputum production, tactile fever, followed by some shortness of breath. There was no headache, sore throat, rash, diarrhea, or arthralgias. Symptoms worsened over a two day period and he presented to the emergency room because of worsening symptomatology. The patient feels he may be slightly better though course has been pretty much downhill during his hospitalization. The patient has not had any primary pulmonary symptoms. No history of COPD, asthma, or pneumonia. He is a nonsmoker. EXPOSURE HISTORY: No exposure to tuberculosis. He does have a 6 and an 8-year-old grandson who are often sick, though they have not been sick lately. PETS: Dog and cat. GEOGRAPHIC HISTORY: Patient born in the [facility] and has remained here since. TRAVEL HISTORY: None. OCCUPATION: The patient does construction. For the most part, he is lately doing renovations of bathrooms. It does involve cutting into lambert at times. Most recently, he was ripping up rug and freddie in a lady who ended up hospitalized. He says there was some blood on the carpeting. Her domicile was quite ill kempt with cat hair and feces a significant problem. HOBBIES: No hobbies which expose him to dust, fumes, or solvents. He has not noted any rodents or rodent feces around his house, living in a duplex. Does occasional yard work. PAST MEDICAL HISTORY: The patient had an inguinal hernia. It was repaired. Sounds like it was complicated by strangulation requiring surgery with resection of some of the bowel. Then, had a significant ventral hernia which required placement of mesh. Overall, surgeries lasted over a year. At one instance, he was hospitalized for a number of months recovering from surgery. It is doing fairly well at this point. TRAVEL HISTORY: [employer] in [facility] about two weeks ago. ALLERGIES: None known. MEDICATIONS ON ADMISSION: None. OBJECTIVE: Vital signs: Temperature 36.7. Patient's highest temp has been 37.7 on admission and three days later. Otherwise, afebrile. Pulse 90 to 100, respiratory rate mid 20s, blood pressure 118/63. O2 sat on high-flow oxygen with FiO2 of 1 and a flow rate of 70 L/minute results in an O2 saturation of 94%. Had been on BiPAP previously. I and O shows 3.8 L in, 1.4 L out. The patient is 4.5 L positive during his stay since admission April 16, 2017. General appearance: Well developed, well nourished, male. Tachypneic. Slight tracheal tug. Speaking in phrases, at times getting out short sentences. Eyes: Conjunctiva pink and moist. No scleral icterus. Nose and throat: . Chest: Fair breath sounds bilaterally. There were coarse crackles throughout both lung pedroza, sparing only the upper lung pedroza. No wheeze. No chest wall tenderness. Heart: Regular rhythm. Somewhat rapid rate. Heart tones seem normal. Abdomen is soft. Nondistended. Nontender. No masses palpable. Bowel tones present. Extremities: No clubbing, cyanosis, nor pretibial edema. Skin: No rash. LABORATORY STUDIES: White cell count is 9500, relatively stable over his hospitalization. There is moderate neutrophilia with 84 polymorphonuclears, no bands, 7 lymphocytes, 5 monocytes. Hemoglobin 14.3. Platelet count 207,000, slowly decreasing. Sodium 134, potassium 4, chloride 96, CO2 is 26, BUN 12, creatinine 0.6, lactic acid is 1.3, calcium 8.2 with albumin of 2.4. Total bilirubin normal at 0.5. AST normal at 15, ALT normal at 9. Alkaline phosphatase minimally elevated at 162, upper limits of normal being 150 units/L. Urine for Legionella antigen is negative. Urine for streptococcal antigen is negative. Viral respiratory panel by PCR is negative. Mycoplasma pneumoniae DNA detection is negative. Nasal smear for MRSA is positive. Blood cultures x2 are negative at two days. Chest x-ray shows worsening widespread diffuse airspace opacities. CT angio with PE protocol shows no intraluminal filling defects. There are patchy bilateral ground-glass opacities present. ASSESSMENT: Pneumonia, etiology unclear. It is a bit disconcerting that procalcitonin has been negative in what appears to be a relatively straightforward presentation of community-acquired pneumonia. Was not taking any empiric antibiotics that we are aware of. Perhaps a fungal pneumonia, though not quite clear. There is no exposure to endemic fungi. Possibly cryptococcal, but this would more likely be C. gattii rather than C. neoformans. Vancomycin has recently been added to the regimen of azithromycin and ceftriaxone started on admission. We will see how he does; however, his respiratory status is certainly worsening. I am concerned that he will deteriorate to the point where he will require intubation. Currently, on the cusp of having sort of maximum high-flow system utilization. The usual culprits for non infectious pulmonary infiltrates are on the board. Would be concerned about cryptogenic organizing pneumonia though there was no real good infection preceding the current entity. No real exposures, no evidence for collagen vascular disease. Could be vasculitis, but I think first we have to cover the infectious entities. PLAN: 1. Continue current regimen. 2. Serial blood work and x-rays. Thank you so much, Dr. Zuniga, for asking us to see this most engaging and pleasant individual. Will follow his respiratory status closely along with you.
[2017-04-21] MEDS: Vancomycin Inj 1,250 MG in 0.9% Sodium Chloride 250 ML IV SCH ×3 (01:11→16:44)
[2017-04-21 02:32] LABS: BASOPHILS % (AUTO) 0.2 % (0-3); EOSINOPHILS % (AUTO) 3.6 % (0-5); MONOCYTES % (AUTO) 7.2 % (4-12); Mean Corpuscular Hemoglobin 30.7 pg (27.0-35.0); Mean Corpuscular Volume 89.7 fL (81-100); NEUTROPHILS % (AUTO) 79.4 % (40-74); Platelet Count 200 bil/L (150-400)
--- NOTE | 2017-04-21 05:55 | NUR ---
pain/Tele Has localized paiin -06/28 gave 2 Mg IV morphine and 0.5 Mg Ativan HS , has changed Bi-Pap mask for better fit, still agitated and pulls on mask while awake. labors to breath when sleeping , breathing deeper when awake. Is more conversant to day than in past shifts . Woke up approx 0400 asked for pain meds , gave 10 Mg Lilly . A&O x 3 using call light appropriately , in room assisting w ADL. Tele SR to S-Tach low 100.
[2017-04-21] MEDS: Vancomycin Dose per Pharmacist XX SCH (08:30)
[2017-04-21] MEDS: LORazepam 0.5 mg Tablet PO PRN ×2 (10:03→19:31)
[2017-04-21] MEDS ORDERED: Furosemide 10 mg/mL 2 mL Inj IVPUSH ONE (11:35)
--- NOTE | 2017-04-21 12:16 | PROG NOTE ---
[address] [address] PROGRESS NOTE PATIENT: MI REED : 1965 MR#: [id number] ADMIT: 04/16/2017 JOB ID: [id number] DATE: 04/21/2017 PULMONARY FOLLOWUP NOTE: PROBLEM: Diffuse pulmonary infiltrates. SUBJECTIVE: He had a bit of a problem with his breathing when he first woke up. Was dreaming and woke up a little bit agitated. Subsequently had a coughing paroxysm and afterwards felt a little better. Had some difficulty when his BiPAP was switched over to high-flow system in order for him to eat breakfast. It took him a bit to recover but he is feeling quite a bit better now. Breathing more comfortably. Some cough. Chest is still a little sore anteriorly but not pleuritic in nature. Taking fluids fairly well. Has not noticed any particular sputum production at this point. OBJECTIVE: Temperature 37.6, which is a bit of a rise with last minimally elevated temperature of 37.7, 36 hours ago, afebrile in between. Pulse mid 90s. Respiratory rate low 30s to mid 30s. With movement, respiratory rate gets as high as the low 40s. Blood pressure 122/72, O2 sat on FiO2 of 70% and BiPAP of 14/8 is 97%. I and O shows 3.5 L in, 1.7 L out. General appearance: Looks a bit more comfortable today. Was dozing when I arrived. Arouses easily. Speaking comfortably though in short phrases. Chest: Diffuse crackles sparing only the upper lung pedroza. No tracheal tug or use of accessory muscles. Currently on the BiPAP settings of 14/8 with FiO2 of 70%. Tidal volumes are in the mid to high 700s, low 800s. Heart: Regular rhythm. Heart tones normal. Abdomen is soft. Nontender. A few bowel tones noted. Liver and spleen not palpable. There was no tenderness in the upper quadrants. Extremities: No cyanosis. No pretibial edema. LABORATORY DATA: Shows a white count of 9300 with moderate neutrophilia. No left shift. Hemoglobin 13.4. Platelet count 200,000 and stable over the last 24 hours. Sodium 135, potassium 4.2, chloride 95, CO2 is 27, BUN 10, creatinine 0.6, glucose 115. Lactic acid normal at 1.3. Calcium 8.1. Yesterday's lab showed a mild elevation in alkaline phosphatase from 82 to 162. Procalcitonin yesterday showed a slight elevation but only from 0.18 to 0.43 which is not particularly impressive. Sputum showed only a few polys and some mixed rashel. ASSESSMENT: Pulmonary infiltrates. History is suggestive of a respiratory tract infection. However, rather extensive efforts have been nonproductive. He is barely holding his own on BiPAP. If he does not turn around soon, he will likely require intubation. Right now, bronchoscopy would definitely result in his requiring intubation. Will continue to monitor closely and if he does require intubation, proceed with bronchoscopy at that time. Antibiotic regimen has been extended. Further microbiologic inquiries are pending. The elevation of alkaline phosphatase is somewhat interesting. He has no tenderness below the abdomen. Might consider pursuing this a bit more in spite of the absolute absence of abdominal findings at this point. Right now, he is too sick to travel for studies. Will see if ultrasound is available and maybe take a quick peek at the biliary system. PLAN: 1. Repeat procalcitonin. 2. Routine blood work. 3. Check BNP.
[2017-04-21] MEDS: cefTRIAXone Inj 2,000 MG in Dextrose 5% Minibag Plus 50 ML IV SCH (12:19)
[2017-04-21] MEDS: Azithromycin Inj 500 MG in Dextrose 5% w/Vial Mate 250 ML IV SCH (13:01)
--- NOTE | 2017-04-21 13:38 | NUR ---
Social Work: Continued Discharge Planning D: Pt discussed in am rounds. Pt is on day5 of stay. Pt remains on BIPAP with pulmonology following. At this time, pt anticipated to require hospitalization for 4-5 more days for continued clinical management. Pt has been ambulating to the BS. A: Pt who is I at baseline. P: Evolving; [employer]GANIC EXTRACTIONS TECHNICIAN to continue to follow and assess for needs once pt's clinical status improves. MALACHI Coats
[2017-04-21 15:11] LABS: Cryptococcal Ag Negative (Negative)
--- NOTE | 2017-04-21 15:16 | PCM.PNMED ---
Subjective Date of Service Apr 21, 2017 Subjective Patient seen and examined No interval changes. He remains on BIPAP and on acute respiratory failure . No chest pain Exam Vital Signs Vital Sign - Last Date Time Temp Pulse Resp B/P Pulse Ox O2 Delivery O2 Flow Rate FiO2 04/21/17 11:43 37.5 90 24 116/69 97 BiPAP 04/21/17 10:13 70 04/21/17 08:45 60 Intake and Output 04/20/17 04/20/17 04/21/17 Cumulative From/Thru 15:00 23:00 07:00 04/16/17 11:01 - 04/21/17 06:45 Intake Total 1848 ml 1033 ml 60389 ml Output Total 1300 ml 700 ml 7450 ml Balance 548 ml 333 ml 5370 ml Intake Oral 400 ml 120 ml 5850 ml IV Total 1448 ml 913 ml 6970 ml Output Urine Total 1300 ml 700 ml 7450 ml # Voids 2 # Bowel Movements 0 0 Exam Gen : ill appearing, NAD, on BiPAP HEENT : On BiPAP. Sclerae is anicteric Chest : No chest tenderness, no deformity. Labored respiratory effort Neck: No stridor, no JVD, trachea is midline, no cervical lymphadenopathy Lungs: Bilateral crackles. No wheezing Heart: S1, S2 regular tendon negative for murmur Abdomen: Benign. Bowel sounds normal all quadrants, no palp mass Extremity: No edema, no calf tenderness, no cyanosis Skin: No rash, no ulcers Neuro : AAO x 3, non focal IVs and Medications Medications Reviewed: Medications were reviewed in detail Lab and Diagnostics Result Diagram: 04/21/17 0157 04/21/17 0157 X-Rays, CTs and MRIs Date of Service: 04/16/17 1150 PROCEDURE: X-RAY CHEST ONE VIEW, PORTABLE ([id number]) IMPRESSION: Severe bilateral pneumonia. Dictated by: Celeste Bynum M.D. on 04/16/2017 at 12:19 Approved by: Celeste Bynum M.D. on 04/16/2017 at 12:20 Date of Service: 04/16/17 1214 PROCEDURE: CT ANGIO CHEST PULMONARY EMBOLISM ([id number]) IMPRESSION: 1. No pulmonary embolus. 2. Severe diffuse pneumonia. 3. Coronary artery disease. Dictated by: Celeste Bynum M.D. on 04/16/2017 at 12:51 Approved by: Celeste Bynum M.D. on 04/16/2017 at 12:52 12-lead ECG SR. no significant ST elevation/depression. Cardiac Echo Impressions Interpretation Summary The left ventricle is normal in size. The ejection fraction is estimated to be 55-60%. There is a noticable interventricular septal shift that varies with respiration. Paradoxical septal motion is consistent with right ventricular pressure overload. The right ventricle is moderately dilated. The right ventricular systolic function is normal (TAPSE: 3.3 cm). There is mild tricuspid regurgitation. The right ventricular systolic pressure is estimated at 58 mmHg assuming a right atrial pressure of 8 mm Hg. There is moderate pulmonary hypertension. Assessment & Plan 52 years old male who is generally healthy with past medical history notable for hypercholesterolemia and low testosterone presents with 2 days of ongoing and worsening generalized malaise, cough, fever, chills, and shortness of breath. 1. Community acquired pneumonia, present on admission. -This is an atypical presentation with bilateral pneumonia and acute respiratory failure in a gentleman with few past medical problems - Continue with IV Ceftriaxone ,Azithromycin and Vancomycin -Nasal swab is positive for MRSA. - Urine legionella and strep Ag negative. - HIV testing , hepatitis C is testing negative as well. - Pulmonary and infectious disease on board 2. Acute hypoxic respiratory failure, present on admission. Due to # 1 - BiPAP PRN . - Nebulizer bronchodilators, aggressive pulmonary toilets 3. Pulmonary hypertension : By echocardiography Echocardiography : Moderate with hypokinesis of the right ventricle. No left ventricular systolic dysfunction or significant valvular disease. Patient remains quite ill and on acute respiratory failure. Will continue with BIPAP . If he continue deteriorate further , mechanical ventilation will be necessary. PRo-calcitonin was overall low since admission and bumps Up to 0.4 today. He hemodynamically stable and afebrile. Pulmonary consult and recommendation appreciated .Other entity such as criptogenic organizing pneumonia or involvement of fungal infection are being considered . Sputum culture and analysis to be repeated , ideally a bronchial lavage would be gold standard but that will require incubation at this time . Plan of care and potential need for mechanical ventilation discussed with the patient and his at bedside . The are Ok with it , should that become necessary Repeat Chest X-ray in am Prognosis guarded GI Prophylaxis: Not indicated VTE Prophylaxis: SCDs VTE Mechanical Devices: Intermittant Pneumatic CD Resuscitation Status: CPR: Attempt Resuscitation (discussed and verified with patient) Time spent 35 minutes Syed Zuniga MD Apr 21, 2017 15:16
[2017-04-21] MEDS ORDERED: Vancomycin Serum Trough XX ONE (16:00)
--- NOTE | 2017-04-21 17:45 | PCM.PHAPRO ---
Progress Date of Service: Apr 21, 2017 shortness of breath, not feeling well Vancomycin dosing per pharmacy Indication: community acquired pneumonia Vancomcyin goal trough: 15-20 Pertinent information: - Acute respiratory failure - Patient was receiving vancomycin 1250 mg IV Q8H. - SCr: 0.67 stable - MRSA PCR positive - Trough: 7.3 Trough remains low. Will increase dose aggressively due to respiratory status and MRSA + lab. Give vancomcyin 1500 mg IV Q6H. Will start new dose early at 2000 tonight to act as a "loading dose". Next vancomcyin trough has been ordered for 04/22/17 @ 1330. Pharmacy to continue to monitor and dose vancomycin. Thank you, Saloni Virk Pharmacist Saloni Virk Apr 21, 2017 17:45
--- NOTE | 2017-04-21 18:44 | NUR ---
Bipap/ Family calls pt remains on Bipap at 70% FiO2, per Silo Man's order. Pt SpO2 at this time 94%. Sister calling for information on patient's condition. When asked pt and pt's partner, pt's partner stating she will call sister back with information. when confirmed with patient, patient agreed to partner's statement. Ongoing care.
[2017-04-21] MEDS: Vancomycin Inj 1,500 MG in 0.9% Sodium Chloride 500 ML IV SCH (20:30)
[2017-04-22] VITALS (16 sets, daily range): BP systolic 88–142; BP diastolic 45–92; PULSE 71–98; RESP 30–43; O2SAT 91–99
[2017-04-22] MEDS: LORazepam 0.5 mg Tablet PO PRN ×2 (00:08→05:10)
[2017-04-22] MEDS: Vancomycin Inj 1,500 MG in 0.9% Sodium Chloride 500 ML IV SCH (01:49)
[2017-04-22 02:47] LABS: BASOPHILS % (AUTO) 0.2 % (0-3); EOSINOPHILS % (AUTO) 2.9 % (0-5); MONOCYTES % (AUTO) 8.5 % (4-12); Mean Corpuscular Hemoglobin 30.4 pg (27.0-35.0); Mean Corpuscular Volume 88.2 fL (81-100); NEUTROPHILS % (AUTO) 78.3 % (40-74); Platelet Count 232 bil/L (150-400)
[2017-04-22 04:00] LABS: Magnesium 2.2 mg/dL (1.6-2.6); Phosphorus 4.5 mg/dL (2.5-4.9)
--- NOTE | 2017-04-22 05:17 | ABG ---
DateTimeAnalyzed 05:13:00 -_ pH ____7.402 - 7.350 7.450 pCO2 ___47.1__ -mmHg 35.0 45.0 pO2 ___57.5__ -mmHg 69.0 116 HCO3- ___28.7__ -mmol/L 22.0 26.0 ABE ____3.7__ -mmol/L -2.0 2.0 tHb ___13.9__ -g/dL O2Hb ___87.7__ -% COHb ____1.2__ -% MetHb ____0.8__ -% sO2 ___89.5__ -% 25.0 FIO2 ___70.0__ -% CPAP ___16.0__ -cmH2O PEEP ____8.0__ -cmH2O Set_RR ___24.0__ -b/min Drawn By MK - Date/Time Notified____ 05:17:00 -_ Spontaneous_RR ___40.0__ -b/min Oxygen Device 1 ____BIPAP - Notified By MK - B 759 -mmHg tO2 ___17.2__ -Vol% OrderingPhysicianInitials bak - Edvin test _Positive -
--- NOTE | 2017-04-22 06:10 | NUR ---
RESPIRATIONS/PAIN Pt continues on BiPAP Fi02 @ 70% with no improvement. Pt was anxious and c/o pain throughout the night. Gave 2mg Morphine x2, Roxicodone 10mg x1 and Ativan 0.5mg x3. Pt's respirations were between 30-50 most of the night. ABG's were surprising considering the increased respirations throughout the night. Ph 7.402, pCO2 47, pO2 57.5. Pt's anxiety and oxygenation seem to be getting worse, care plan will need to be re-evaluated.
[2017-04-22] MEDS ORDERED: fentaNYL-PF 50 mCg/mL 2 mL Inj ONE (06:53)
[2017-04-22] MEDS ORDERED: Succinylcholine Chloride 20 mg/mL 5 mL Inj ONE (06:53)
[2017-04-22] MEDS ORDERED: Propofol 10,000 mCg/mL 20 mL Inj ONE (06:53)
--- NOTE | 2017-04-22 07:44 | DRSVH ---
PROCEDURE: X-RAY CHEST ONE VIEW, PORTABLE ([id number]) INDICATIONS: diffuse pulmonary infiltrates TECHNIQUE: One view of the chest was acquired. COMPARISON: None. FINDINGS: Surgical changes and devices: None. Lungs and pleura: No pleural effusions or pneumothorax. Lungs are abnormal with diffuse alveolar in filtration that appears slightly improved at each lung base with reference to the prior study from 04/20/17. The diaphragms are better visualized by the current examination. Mediastinum: Mediastinal contours appear normal. Heart size is normal. Bones and chest wall: No suspicious bony lesions. Overlying soft tissues appear unremarkable. IMPRESSION: Generalized alveolar infiltration pattern is slightly improved from 2 days ago. No effu syl found. Persistent reduced inspiratory volume but that also is mildly improved on the current st udy. Dictated by: Moises Maki M.D. on 04/22/2017 at 7:42 Approved by: Moises Maki M.D. on 04/22/2017 at 7:43
[2017-04-22] MEDS: Vancomycin Dose per Pharmacist XX SCH (08:07)
--- NOTE | 2017-04-22 10:19 | PROG NOTE ---
[address] [address] PROGRESS NOTE PATIENT: MI REED : 1965 MR#: [id number] ADMIT: 04/16/2017 JOB ID: [id number] DATE: 04/22/2017 REASON FOR FOLLOWUP: Unexplained bilateral pulmonary infiltrates with respiratory failure. INTERVAL HISTORY: The patient is now completing his first week in the hospital for this unexplained respiratory failure with bilateral alveolar infiltrate process. He remains on the BiPAP extremely short of breath requiring high-flow oxygen at all times. He is unable to even tolerate a switch to high-flow nasal cannula so that he can eat or speak. The patient remains awake and reports basically severe air hunger and shortness of breath associated with some he says pleuritic chest pain along the left. He denies significant fever, chills, or sweats. He has no notable sputum production though it is difficult to tell unless he is on the BiPAP at all times. He has no nausea, vomiting, or diarrhea. No urinary symptoms. No skin rash. PHYSICAL EXAMINATION: Reveals a gentleman who has been afebrile since his admission a week ago except for a temperature of 38.1 last night at 7:00 p.m. and that is his only temperature above 38 during the past week. Pulse is currently in the 80s, respiratory rate is 35-40 basically. Blood pressure 115/66. He is on BiPAP high-flow with 70 to 80% inspired oxygen. Examination of the eyes reveals no conjunctivitis or scleral icterus. I cannot examine the patient's mouth because of the presence of the BiPAP which cannot be removed at all. His neck is without adenopathy. Lungs notable for fine crackles throughout. Cardiac tones regular rate and rhythm, but distant and difficult to hear with the BiPAP going. Abdomen completely benign. Neurologically the patient is intact. No peripheral edema. No skin rash. LABORATORIES: Include a blood gas just done PO2 57, PCO2 is now 47 which constitutes an increase and in a patient who is breathing 40 times a minute this is an ominous sign. His white blood count 9600 today. The diff is almost normal 78% segs. His creatinine is 0.54. His liver function tests are normal except for an alk phos 195 and rising. Albumin 2.6. Procalcitonin have been ranging between 0.2 and 0.4 and today's is 0.29. There is no trend and none of them of ever exceeded 0.5. Urinalysis on admission had no white cells. Vanco troughs have been very poor, and I think we will abandon vanco in this case. Crypto antigen is negative. Hepatitis C negative. HIV negative. Urine Legionella and pneumococcal antigens are negative. Hantavirus and galactomannan are pending. All cultures have been negative except a MRSA nasal swab that was positive. IMAGING: I carefully reviewed today's chest x-ray. He has had generalized alveolar infiltrates which occupy basically the entire lung bilaterally. The radiologist thinks these might be slightly better, but this is subtle if true. IMPRESSION: This is a disconcerting case of a relatively healthy 48-year-old man admitted with bilateral pulmonary infiltrates. Overall, his situation has steadily worsened for a week and he now has a rising pCO2 on the BiPAP despite breathing 35-40 times a minute. The patient is anxious and gradually becoming exhausted. So far, we have no clear cut evidence of infection as the patient has been essentially afebrile throughout his week in the hospital. The procalcitonin which have been generally unexciting. The only clue we have is positive methicillin resistant Staphylococcus aureus in the nares, but this would be an extraordinary methicillin resistant Staphylococcus aureus pneumonia as it is almost completely involving both lungs in an almost uniform pattern, which would be quite strange for a methicillin resistant Staphylococcus aureus pneumonia. 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 If this is not an infection, I would wonder about diffuse alveolar hemorrhage, eosinophilic pneumonia, LAY OUT AND DETAIL DRAFTER or BOOP, or Chito-Rich syndrome. RECOMMENDATIONS: 1. Will stop the vancomycin as he is not getting good levels despite heroic dosing and will switch to linezolid. 2. The patient has received around 3 g of azithromycin which would seem to be quite a hefty dose and plan to stop that and switch to doxycycline for slightly broader coverage. Will continue with ceftriaxone for broad-spectrum coverage, but this presumably community-acquired process, that I am not certain as to how much benefit he is driving from that at this point. PLAN: 1. Discontinue vancomycin and azithromycin. 2. Start linezolid 600 IV q.12. 3. Start doxycycline 100 IV q.12. 4. Will continue with ceftriaxone. 5. I wonder if steroids might be of value in this patient who seems to be deteriorating. The possibility of a reaction triggered by one of the environmental exposures such as an eosinophilic pneumonia or LAY OUT AND DETAIL DRAFTER syndrome or Chito-Rich all seem possible in this patient, and I wonder if the addition of empiric steroids at this juncture might be useful. Will defer this decision to my colleague Dr. Katz of Pulmonary, however, and plan to discuss the case with him this morning. 6. Ultimately the patient seems headed towards intubation and at that point, a bronchoscopy can be done and hopefully that will shed more light on this process. 7. I also think this patient she should potentially be moved to the CCU rather than the PCC so he can be watched much closer as he seems to be worsening over time.
[2017-04-22] MEDS: Linezolid Inj 600 MG in IV Premix 1 EACH IV SCH ×2 (10:32→20:45)
[2017-04-22] MEDS ORDERED: fentaNYL-PF 50 mCg/mL 2 mL Inj IVPUSH PRN (12:15)
[2017-04-22] MEDS: Doxycycline Inj 100 MG in Dextrose 5% Minibag Plus 100 ML IV SCH ×2 (12:44→20:45)
[2017-04-22] MEDS: fentaNYL 2,500 mCg/250 mL 2,500 MCG in IV Premix 1 EACH IV SCH ×2 (12:44→21:02)
[2017-04-22] MEDS: Propofol Inj 1,000,000 MCG in IV Premix 1 EACH IV SCH ×4 (12:44→21:02)
--- NOTE | 2017-04-22 12:56 | DRSVH ---
PROCEDURE: X-RAY CHEST ONE VIEW, PORTABLE ([id number]) INDICATIONS: post ET intubation TECHNIQUE: One view of the chest was acquired. COMPARISON: The multiple recent inpatient chest plain films have been reviewed. FINDINGS: Surgical changes and devices: Endotracheal tube and nasogastric tubes have been placed in normal pos ition. Lungs and pleura: No pleural effusions or pneumothorax. Lungs are diffusely abnormal, with mild spa ring at each lateral lung base. Mediastinum: Mediastinal contours appear normal. Heart size is normal. Bones and chest wall: No suspicious bony lesions. Overlying soft tissues appear unremarkable. IMPRESSION: Bilateral pneumonia, moderately severe, with mild sparing of the alveolar infiltration a t each lateral lung base. Endotracheal intubation appears normal as does the nasogastric tube placem ent. Dictated by: Moises Maki M.D. on 04/22/2017 at 12:53 Approved by: Moises Maki M.D. on 04/22/2017 at 12:54
[2017-04-22] MEDS ORDERED: Sodium Chloride LOK Flush 10 mL Syringe IVFLUSH PRN (13:05)
--- NOTE | 2017-04-22 13:23 | PROG NOTE ---
[address] [address] PROGRESS NOTE PATIENT: MI REED : 1965 MR#: [id number] ADMIT: 04/16/2017 JOB ID: [id number] PULMONARY/CRITICAL CARE FOLLOWUP NOTE: DATE: 04/22/2017 PROBLEM LIST: 1. Diffuse pulmonary infiltrates. 2. Hypoxemic hypercarbic respiratory failure. SUBJECTIVE: Breathing okay at this time; however, last night and again this morning, he had difficulties breathing. Has significant problems with dyspnea when he takes off the BiPAP mask to even using the high-flow system to drink or take a little bit of food. Not much of a cough. Had some dull left-sided chest pain, but that has resolved. He thinks his breathing actually is about the same as it has been. OBJECTIVE: Vital signs: Temperature 37.5, T-max being 38.1 last evening. Pulse of 87 and 93, respiratory rate 36-44, blood pressure 115/66, O2 sat on FiO2 of 70%, BiPAP of 14/8 is 96%. I and O shows 3.7 L in, 2.6 L out. General appearance: No acute distress. Looks a bit tired and a bit washed out. Still animated, but just seems a little bit slower today than yesterday. Eyes: Conjunctivae are pink. Nose and throat could not be examined due to the presence of the BiPAP mask. Chest: No tracheal tug. No use of accessory muscles. Fair breath sounds bilaterally. There are diffuse crackles throughout the entire left lung field that may be sparing the absolute apex of the lung. Right lung has crackles in its lower half with fairly good breath sounds in the right upper lung field. Heart: Regular rhythm. Heart tones normal. Abdomen is soft. Bowel tones present. Extremities: No pretibial edema. LABORATORY DATA: Shows white count of 9600 with 78 polymorphonuclears, 9 lymphocytes, 8 monocytes, 2 eosinophils. Hemoglobin 13.6, stable. Platelet count stable at 232,000. Sodium 136, potassium 4.2, chloride 96, CO2 is 25, BUN 13, creatinine 0.54, and improving. Glucose 121, calcium is 8.4 with an albumin of 2.6. Phosphorus normal at 4.5. Magnesium normal at 2.2. Total bilirubin 0.4, AST 17, ALT 12, alkaline phosphatase slowly rising at 195. Procalcitonin remains low at 0.29. ProBNP mildly elevated at 484, upper limits of normal being 121. Cryptococcal antigen negative. Urine for Legionella antigen is negative. Urine for Strep antigen is negative. Sputum growing probable Staph aureus; however, Gram stain shows few polys and few mixed normal rashel. Chest x-ray shows diffuse infiltrates throughout both lung pedroza. No particular change to my view. Acute respiratory distress syndrome. The patient has diffuse infiltrates. Respiratory status is worsening. Arterial blood gases on BiPAP with respiratory rate in the high 30s, low 40s, IPAP of 16, EPAP of 8, with an FiO2 of 0.7 shows a pO2 of 57, pCO2 of 47, pH 7.40. ASSESSMENT: Acute respiratory distress syndrome, etiology unclear. History I thought was relatively convincing for respiratory tract infection; however, unable to prove that and the data suggests this is not the case. Not sure what to do, is a Staph aureus with low pro calcitonin and a Gram stain showing only a few polys. Would wonder if this is only colonization. In any case, I think the patient is failing. Discussed with both he and his intubation. Once intubation has been performed, we can consider bronchoscopy to evaluate for infection, especially of the non bacterial kind, or the other entities such as hypersensitivity pneumonitis, maybe eosinophilic pneumonia. May be able to do a mini lavage today, maybe bronchoscopy tomorrow depending on how the situation goes after intubation. Discussed intubation with Anesthesia. They have graciously agreed to proceed with intubation as he is somewhat a high risk with his significant rapid and severe desaturations. Spoke with IV about getting a PICC line in him for a better IV access. Discussed the risks of bronchoscopy, notably hypoxemia, but also bleeding and pneumothorax. I think the latter two are low probability; however, I am somewhat concerned about the O2. Will see how that goes and maybe not even proceed with bronchoscopy. Maybe a trial lavage to see if we can get some material. That will depend on how things go after intubation and day getting a line in him. PLAN: 1. Transfer to intensive care unit. 2. Intubation and mechanical ventilation. Discussed with Anesthesia. 3. PICC line for IV access. 4. Consider either bronchoscopy or mini BAL. 5. Continue his current regimen of antibiotics. 6. Discuss further antibiotics with ID and Primary. TIME: Time spent so far in critical care is 48 minutes.
[2017-04-22] MEDS ORDERED: Vancomycin Serum Trough XX ONE (13:30)
--- NOTE | 2017-04-22 13:50 | PCM.HPANE ---
Patient Data Surgeon Admitting Provider:Nestor Ring Attending Provider:Nestor Ring Primary Care Physician:Massimo Queen DO Other Provider: Reason for Visit CAP SOB Ht/WT & BMI Height (Feet): 5 Height (Inches): 8.00 Weight (Kilograms): 95.200 Body Mass Index 30.47 Allergies Coded Allergies: No Known Allergies (Verified , 03/20/16) Past Anesthesia History Anesthesia History: Denies:: Anesthesia Reactions, Malignant Hyperthermia Diabetes History Hx Diabetes?: No MRSA MRSA: No Medications Reported Medications Naproxen 250 Mg [id number] Mg PO BID PRN For Pain Ref 0 04/16/17 Discontinued Reported Medications Nystatin/Triamcin (Nystatin-Triamcinolone Ointm)15 Gm Oint...g.15 Gm TP BID 03/20/16 Naproxen 500 Mg [id number] Mg PO BID PRN For Pain Ref 0 03/20/16 Discontinued Scripts oxyCODONE 5 Mg [id number] Mg PO Q6H PRN For Moderate Pain #60 TABLET Prov:David Roberts MD 03/28/16 History History of ENT Problems?: No HEENT History: Denies:: Abnormal Airway Cataracts Difficult Intubation Dysphagia Glaucoma Hearing Problem Sinus Problem TMJ Denture Type: None Teeth Condition: Within Normal Limits Hx of Heart Problems?: Yes Cardiovascular History: Positive for:: Hypertension Denies:: AICD Abdominal Aortic Aneurism Atrial Fibrillation Cardiac Surgery Chest Pain Congestive Heart Failure Coronary Artery Disease Edema Heart Murmur Irregular Heartbeat Pacemaker Peripheral Vascular Rheumatic Fever Thrombophlebitis Valvular Heart Disease Hx of Respiratory Problem?: Yes Respiratory History: Positive for:: Dyspnea Hemoptysis Oxygen Administration Pneumonia Use of C-PAP Machine (BiPAP) Denies:: Asthma COPD Chest Surgery Cough Emphysema Pulmonary Embolism Tuberculosis Use of Inhalers / NEBS Hx Neurologic Problems?: No Neurological History: Denies:: Alzheimer's Disease CVA Dementia Dizziness Headaches Multiple Sclerosis Parkinson's Disease Peripheral Neuropathy Seizures TIA Hx of GI Problems?: Yes Gastrointestinal History: Denies:: Cirrhosis Diverticulitis Gall Bladder Disease Gastroesphageal Reflux Gastrointestinal Bleeding Heartburn Hepatitis Hiatal Hernia Liver Disease Rectal Bleeding Other GI Pertinent History: Bowel obstruction Hx of Problems?: No Genitourinary History: Denies:: HX of Hemodialysis Kidney Stones Urinary Tract Infection HX of Peritoneal Dialysis: No Male Hx: Denies:: Prostate Problems Scrotal Mass Testicular Surgery Skin History: Positive for:: History Skin Disorders? 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 Denies:: Blood Transfuse Reaction Blood Transfusions Hx Diabetes: No Hx Alcohol Use: Yes ("Sometimes")Hx Substance Use: No Smoking Status: Never Smoker Have You Smoked inLast 12 mo: No Stop/Bang Treated for Sleep Apnea?: No Do You Have a CPAP Machine?: No S-Snoring: Do You Snore Loudly: Yes T-Tired: feel tired, fatigued: No O-Obsered: Observed not breath: No P-Blood Pressure: treated: No B- Body Mass Index > 35 kg/m2: No A- Age over 50: Yes N- Neck Large Circumference: No G- Gender Male: Yes GRACE Total Score: 2 Risk Assessment Category Category 1A: Patient has history of documented sleep apnea, and HAS NOT received any narcotic, sedative or anesthesia administration during this stay. Category 1B: Patient has history of documented sleep apnea, and HAS received any narcotic , sedative or anesthesia administration during this stay Category 2: Patient has SUSPECTED Obstructive Sleep Apnea, and HAS received any narcotic , sedative or anesthesia administration during this stay. Category 3: Patient has SUSPECTED Obstructive Sleep Apnea and HAS NOT received narcotic, sedative or anesthesia administration during this stay. Category 4: Outpatient in Procedural Areas with known sleep apnea or who screen positive for High Risk via the STOP/BANG questionnaire. Exam Exam Vital Signs Vital Signs Date Time Temp Pulse Resp B/P Pulse Ox O2 Delivery O2 Flow Rate FiO2 04/22/17 10:14 87 04/22/17 09:12 36 94 86 04/22/17 08:49 37.5 88 36 115/66 96 BiPAP 70 04/22/17 08:30 CPAP/BIPAP 04/22/17 06:04 CPAP/BIPAP 04/22/17 05:42 93 04/22/17 05:25 93 41 94 70 04/22/17 04:00 36.7 77 32 142/92 96 BiPAP General Appearance: Alert, Oriented X3, Cooperative, No Acute Distress HEENT/AIRWAY: MP 2, Neck Movement (FROM), Mouth Opening (3 FBMO) Lungs: Diminished, Other (acute respiratory failure requiring intubation and mechanical intubation) Heart: Regular Rate/Rhythm Meds/Labs/Diagnostics Admission Meds Current Medications Vancomycin HCl 1500 mg/Sodium Chloride 500 ml @ 333.333 mls/hr Q6H IV Last administered on 04/22/17 01:49; Start 04/21/17 at 20:00; Stop 04/22/17 at 09:43; Status DC Linezolid/Premix (Zyvox Inj/IV Premix) 300 ml @ 300 mls/hr Q12 IV Last administered on 04/22/17 10:32; Start 04/22/17 at 09:40 Labs Test 04/16/17 11:45 04/16/17 20:50 04/17/17 02:45 04/20/17 10:45 Troponin T 0.010ug/L (0.0-0.011) Urine Color Yellow (YELLOW) Urine Appearance Clear (CLEAR,HAZY) Urine pH 6.0 (5.0-8.0) Urine Specific [place] 1.015 (1.003-1.035) Urine Protein Negativemg/dL (NEG,TRACE) Urine Glucose (UA) Negativemg/dL (NEGATIVE) Urine Ketones Negativemg/dL (NEGATIVE) Urine Occult Blood Negative (NEGATIVE) Urine Nitrite Negative (NEGATIVE) Urine Bilirubin Negative (NEGATIVE) Urine Urobilinogen Normalmg/dL (NORMAL) Urine Leukocyte Esterase Negative (NEGATIVE) Urine RBC 0-2/hpf (0-2) Urine WBC 0-5/hpf (0-5) Urine Epithelial Cells Occasional/hpf (NONE-MOD) Urine Crystals None seen (NONE SEEN) Urine Bacteria None/hpf (NONE-FEW) Urine Hyaline Casts None/lpf (NONE) Urine Granular Casts None seen (NONE SEEN) Urine Waxy Casts None seen (NONE SEEN) Urine Red Blood Cell Casts None seen (NONE SEEN) Urine White Blood Cell Casts None seen (NONE SEEN) Urine Mucus Present (None Seen) Urine Trichomonas None seen (NONE SEEN) Urine Yeast None (NONE SEEN) Urinalysis Comment None Urine Culture Reflexed Not indicated Urine Legionella pneumophilia Ag Negative (Negative) Prothrombin Time 11.3sec (8.1-12.5) Prothromb Time International Ratio 1.05ratio Activated Partial Thromboplast Time 33.7sec (22.8-33.0) Lactic Acid Level 1.3mmol/L (0.4-2.0) Test 04/20/17 17:56 04/21/17 16:05 04/22/17 02:16 Cryptococcus Antigen Negative (Negative) Hepatitis C Antibody <0.1s/co ratio (0.0-0.9) HIV (1&2) Ag and Ab, 4th Generation Non reactive (Non Reactive) Vancomycin Level Trough 7.3mcg/mL White Blood Count 9.6th/mm3 (3.8-10.1) Red Blood Count 4.48mil/mm3 (4.40-5.80) Hemoglobin 13.6g/dL (13.8-17.2) Hematocrit 39.5% (41.0-50.0) Mean Corpuscular Volume 88.2fL (81-100) Mean Corpuscular Hemoglobin 30.4pg (27.0-35.0) Mean Corpuscular Hemoglobin Concent 34.4% (32.0-37.0) Red Cell Distribution Width 12.2% (12.3-15.4) Platelet Count 232bil/L (150-400) Neutrophils (%) (Auto) 78.3% (40-74) Lymphocytes (%) (Auto) 9.9% (14-46) Monocytes (%) (Auto) 8.5% (4-12) Eosinophils (%) (Auto) 2.9% (0-5) Basophils (%) (Auto) 0.2% (0-3) Sodium Level 136mEq/L (134-144) Potassium Level 4.2mEq/L (3.5-5.2) Chloride Level 96mEq/L (97-108) Carbon Dioxide Level 25mmol/L (18-29) Blood Urea Nitrogen 13mg/dL (6-24) Creatinine 0.54mg/dL (0.76-1.27) Estimat Glomerular Filtration Rate 169mL/min (>59) Glucose Level 121mg/dL (60-99) Calcium Level 8.4mg/dL (8.5-10.1) Phosphorus Level 4.5mg/dL (2.5-4.9) Magnesium Level 2.2mg/dL (1.6-2.6) Total Bilirubin 0.4mg/dL (0.0-1.2) Aspartate Amino Transf (AST/SGOT) 17U/L (0-50) Alanine Aminotransferase (ALT/SGPT) 12U/L (0-44) Alkaline Phosphatase 195U/L (25-150) Pro-B-Type Natriuretic Peptide 484.9pg/mL (0-121) Total Protein 6.0g/dL (6.4-8.4) Albumin 2.6g/dL (3.4-5.0) Procalcitonin 0.29ng/mL (0.00-0.08) Plan Impression Patient chart reviewed, patient interviewed and anesthestic plan with risks, benefits, and alternatives discussed, and informed consent obtained. NPO per Anesth. Guidelines: Yes ASA Physical Status: ASA4 Plus Emergency (Respiratory failure requiring intubation) Anesthetic Plan: GA Bene/Risks/Altern/Consents: Yes HP Complete Prior to Induction: Yes Dominick Pedraza MD Apr 22, 2017 11:50
--- NOTE | 2017-04-22 13:51 | PCM.ANEP1 ---
Post Anesthesia PACU Phase 1 Assessment Vital Signs Vital Signs Date Time Temp Pulse Resp B/P Pulse Ox O2 Delivery O2 Flow Rate FiO2 04/22/17 10:14 87 04/22/17 09:12 36 94 86 04/22/17 08:49 37.5 88 36 115/66 96 BiPAP 70 04/22/17 08:30 CPAP/BIPAP 04/22/17 06:04 CPAP/BIPAP Anesthetic Administered: GA Level of Alertness: Drowsy, not talking SUNG's with Equal Strength: Yes Pain: Yes Pain Scale Score: 2 Nausea or Vomiting: No CV Function & Hydration Stable: Yes Airway Device: intubated on ventilator Oxygen Delivery: Mechanical Ventilator Lungs: Diminished, Other (acute respiratory failure requiring intubation and mechanical intubation) Dermatome Level: Full Sensation PACU Phase 2 Assessment Complications: No Follow up Care: N/A Patient Instructions Provided: N/A Dominick Pedraza MD Apr 22, 2017 13:50
[2017-04-22] MEDS: cefTRIAXone Inj 2,000 MG in Dextrose 5% Minibag Plus 50 ML IV SCH (13:52)
--- NOTE | 2017-04-22 13:53 | ABG ---
DateTimeAnalyzed 13:45:00 -_ pH ____7.369 - 7.350 7.450 pCO2 ___52.1__ -mmHg 35.0 45.0 pO2 217 -mmHg 69.0 116 HCO3- ___29.3__ -mmol/L 22.0 26.0 ABE ____3.5__ -mmol/L -2.0 2.0 tHb ___13.0__ -g/dL O2Hb ___97.3__ -% COHb ____1.0__ -% MetHb ____1.0__ -% sO2 ___99.3__ -% 25.0 FIO2 __100.0__ -% PEEP ____8.0__ -cmH2O Set_RR ___30.0__ -b/min Vt __470.0__ -L Drawn By NB - Date/Time Notified____ 13:50:00 -_ Spontaneous_RR ___32.0__ -b/min Oxygen Device 1 VENTILATOR - Notified By nb - Notified Whom Dr Kendregan - B 760 -mmHg tO2 ___18.2__ -Vol% Edvin test N/A -
--- NOTE | 2017-04-22 14:03 | DRSVH ---
PROCEDURE: X-RAY PICC LINE PLACEMENT BY NURSE ([id number]) INDICATIONS: IV access COMPARISON: None. FINDINGS: PICC was placed by the intravenous therapy team from the right side. Fluoroscopic spot fi lm demonstrates tip of PICC in the right atrium. IMPRESSION: Tip of PICC lies within the right atrium from right sided approach. Dictated by: Moises Maki M.D. on 04/22/2017 at 14:00 Approved by: Moises Maki M.D. on 04/22/2017 at 14:01
[2017-04-22] MEDS: 0.9% Sodium Chloride 1,000 ML IV SCH (14:41)
--- NOTE | 2017-04-22 14:48 | PCM.PNMED ---
Subjective Date of Service Apr 22, 2017 Subjective Patient seen and examined at bedside with assigned nurse . Overall deteriorating form pulmonary standpoint . Case discussed with pulmonary and ID Patient is being transferred to ICU for mechanical ventilation Exam Vital Signs Vital Sign - Last Date Time Temp Pulse Resp B/P Pulse Ox O2 Delivery O2 Flow Rate FiO2 04/22/17 14:33 68 89/52 70 04/22/17 13:50 Mechanical Ventilator 04/22/17 12:45 36.9 30 97 04/21/17 08:45 60 Intake and Output 04/21/17 04/21/17 04/22/17 Cumulative From/Thru 15:00 23:00 07:00 04/16/17 11:01 - 04/22/17 06:16 Intake Total 2750 ml 2800 ml 46176 ml Output Total 1950 ml 300 ml 9700 ml Balance 800 ml 2500 ml 8670 ml Intake Oral 1800 ml 800 ml 8450 ml IV Total 950 ml 2000 ml 9920 ml Output Urine Total 1950 ml 300 ml 9700 ml # Voids 2 # Bowel Movements 0 Exam Gen : ill appearing, in mild distress, on BiPAP HEENT : Sclerae is anicteric. MONICA Chest : Labored respiratory effort with use of accessory muscles Neck: No stridor, no JVD, trachea is midline, no cervical lymphadenopathy Lungs: Bilateral crackles. No wheezing Heart: S1, S2 regular . No murmur Abdomen: Benign. Bowel sounds normal quadrant Extremity: No edema, no calf tenderness, no cyanosis Neuro : AAO x3. Grossly non focal IVs and Medications Medications Reviewed: Medications were reviewed in detail Lab and Diagnostics Result Diagram: 04/22/176 04/22/17 0216 X-Rays, CTs and MRIs Date of Service: 04/16/17 1150 PROCEDURE: X-RAY CHEST ONE VIEW, PORTABLE ([id number]) IMPRESSION: Severe bilateral pneumonia. Dictated by: Celeste Bynum M.D. on 04/16/2017 at 12:19 Approved by: Celeste Bynum M.D. on 04/16/2017 at 12:20 Date of Service: 04/16/17 1214 PROCEDURE: CT ANGIO CHEST PULMONARY EMBOLISM ([id number]) IMPRESSION: 1. No pulmonary embolus. 2. Severe diffuse pneumonia. 3. Coronary artery disease. Dictated by: Celeste Bynum M.D. on 04/16/2017 at 12:51 Approved by: Celeste Bynum M.D. on 04/16/2017 at 12:52 Chest X-ray ( 04/22/2017) reviewed : Worsening diffused alveolar infiltrate 12-lead ECG SR. no significant ST elevation/depression. Cardiac Echo Impressions Interpretation Summary The left ventricle is normal in size. The ejection fraction is estimated to be 55-60%. There is a noticable interventricular septal shift that varies with respiration. Paradoxical septal motion is consistent with right ventricular pressure overload. The right ventricle is moderately dilated. The right ventricular systolic function is normal (TAPSE: 3.3 cm). There is mild tricuspid regurgitation. The right ventricular systolic pressure is estimated at 58 mmHg assuming a right atrial pressure of 8 mm Hg. There is moderate pulmonary hypertension. Assessment & Plan 52 years old male who is generally healthy with past medical history notable for hypercholesterolemia and low testosterone presents with 2 days of ongoing and worsening generalized malaise, cough, fever, chills, and shortness of breath. 1. Community acquired pneumonia, present on admission. -This is an atypical presentation with bilateral pneumonia and acute respiratory failure in a gentleman with few past medical problems -Nasal swab is positive for MRSA. but unlikely the culprit here given the diffuse extension. In any case , he has been in VAncomycin for the past 3 days - Vancomycin is discontinue by ID as well as Zithromax and Linezolid is initiated as level of Vanco remained under therapeutic level . - Possible involvement of environmental agents , or fungal infection. 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 - Patient is quite being exhausted despite BIPAP and high flow oxygen. Last ABG show raising Pco2 ad O2 of 57 . We concurs on intubation and mechanical ventilation at this time . Possible bronchoscopy is being considered as well. 2. Acute hypoxic respiratory failure, present on admission. Due to # 1 As above 3. Pulmonary hypertension : By echocardiography Echocardiography : Moderate with hypokinesis of the right ventricle. No left ventricular systolic dysfunction or significant valvular disease. Patient condition is deteriorating and intubation and mechanical ventilation is inevitable at this time. That was discussed with the patient, his and his brother at bedside and they are in agreement with that . Repeat chest X-ray today shows diffuse alveolar infiltrate , unchanged or shingly worse than 2 days ago to my interpretation Prognosis is guarded . GI Prophylaxis: Not indicated VTE Prophylaxis: SCDs VTE Mechanical Devices: Intermittant Pneumatic CD Resuscitation Status: CPR: Attempt Resuscitation (discussed and verified with patient) Time spent 35 minutes Syed Zuniga MD Apr 22, 2017 14:48
[2017-04-22] MEDS: Norepineph 8,000 mCg/250 mL NS 8,000 MCG in IV Premix 1 EACH IV SCH ×2 (15:15→18:46)
[2017-04-22] MEDS: Sodium Chloride LOK Flush 10 mL Syringe IVFLUSH PRN (16:02)
--- NOTE | 2017-04-22 16:08 | PROG NOTE ---
[address] [address] PROGRESS NOTE PATIENT: MI REED : 1965 MR#: [id number] ADMIT: 04/16/2017 JOB ID: [id number] DATE: 04/22/2017 PROBLEM LIST: ARDS. SUBJECTIVE: None. OBJECTIVE: Temperature 36.9. Pulse is 68-87, respiratory rate 30 with ventilator set at 30. Blood pressure 96/56 with a MAP of 66. O2 sat on FiO2 of 70%, PEEP of 8, though measured at 14, is 97%. General appearance: Sedated on the ventilator. Taking high doses of both of fentanyl, at 200 mcg/hour, and propofol at 50 mcg/kg/hour. Sedated. OG tube in place. Chest is clear with good breath sounds bilaterally. Peak inspiratory pressure with a tidal volume of 410 is 38, plateau is 28. PEEP is set at 8, measured at 14. Respiratory rate 30. Tidal volume 410. Attempted to decrease respiratory rate, but patient stayed at 30 starting to intersperse vent settings with spontaneous breaths. Attempted to decrease tidal volume but patient has started to stack on ventilator. Will therefore start bronchodilators as there seems to be some element of airway obstruction. For the moment will avoid steroids pending result of pulmonary lavage done earlier today. Heart: Regular rhythm. Heart tones normal. Abdomen soft. Relatively quiet. Extremities: No pretibial edema. Intubation was more than expertly handled by Dr. Pedraza given his intense hypoxemia with any kind of intervention. The patient was intubated even before succinylcholine took full effect. One very quick pass, but even with that, he had transient O2 desaturation to 78%. Recovered quickly without any arrhythmias or other untoward events. Quite agitated after sedation worn off. Taking goodly doses of medication to control his behavior. Chest x-ray showed endotracheal tube in good position. ASSESSMENT: 1. Acute respiratory distress syndrome. Etiology still not forthcoming. As mentioned in earlier notes, sputum growing probable Staph aureus. Not convinced, however, that is the pathogen. Results of pulmonary lavage pending. 2. Air trapping. Having some problems with auto PEEP. Rather unusual in patients with ARDS. Whether this represents the underlying lung disease and we are dealing with a bronchiolitis picture is unclear. Will see what the results of the lavage tell us and proceed accordingly. In the meantime, unable to decrease the rate as the patient picks up his own spontaneous rate and unable to decrease the volume as the patient then starts air stacking. Will start bronchodilators as inspiratory flow already reasonable and peaks somewhat high. PLAN: 1. Mechanical ventilation with PRBC. 2. pulmonary lavage. 3. Normal saline at 100 an hour. May need a bit of bolus saline. However, would like to avoid any type of fluid resuscitation. 4. Nebulized albuterol and ipratropium. 5. May need paralysis to control the auto PEEP. 6. Ultrasound of biliary tree to evaluate the alkaline phosphatase. May need CT of the abdomen. Intubation and events related to the patient's . Additional time spent in intensive care is 45 minutes.
[2017-04-22] MEDS: Albuterol-Ipratropium 3 mL Inhalation Solution NEB SCH ×2 (17:22→21:03)
[2017-04-22 18:23] LABS: BFWBC 258 /mm3; MONOCYTES,BODY FLUID 10 %; OTHER CELLS,BODY FLUID 0
[2017-04-22] MEDS: Cisatracurium 200,000 mCg/100 mL NS IV SCH ×2 (18:46)
--- NOTE | 2017-04-22 19:12 | DRSVH ---
PROCEDURE: US ABDOMEN ([id number]) INDICATIONS: rising alkaline phosphatase in unk site of sepsis TECHNIQUE: Real-time scanning was performed of the abdominal and retroperitoneal organs, with image documentatio n. COMPARISON: None. FINDINGS: Liver: Liver is normal in size and homogeneous in echotexture, hyperechoic consistent with fatty inf iltration. Gallbladder: The gallbladder appears normal Biliary ducts: Intrahepatic bile ducts are non-dilated. Extrahepatic bile duct caliber measures 5.0 mm. Normal is 6-7 mm or less in diameter, or 10 mm or less post-cholecystectomy. Pancreas: Visualized portions of the pancreas are sonographically normal. Spleen: Spleen is enlarged in size at 15.0 cm craniocaudad but homogeneous in echotexture. Kidneys: Kidneys are normal in size and echotexture. Right kidney measures 12.4 cm long; left kidne y measures 13.1 cm long. No hydronephrosis or nephrolithiasis. No solid masses. Aorta: Visualized aorta is normal in caliber at less than 3 cm. Iliacs: Proximal common iliac arteries are normal in caliber at less than 2.5 cm. IVC: Intrahepatic inferior vena cava is patent. Miscellaneous: No free abdominal fluid. IMPRESSION: Splenomegaly at 15 cm craniocaudad, no abnormal free fluid seen throughout the peritonea l space. Prominent fatty infiltration within the liver. Quality of visualization was somewhat limit ed by the combative uncooperative nature of the current clinical status of the patient. Dictated by: Moises Maki M.D. on 04/22/2017 at 19:09 Approved by: Moises Maki M.D. on 04/22/2017 at 19:11
--- NOTE | 2017-04-22 19:30 | NUR ---
Intubation/agitation/BP Patient was transferred to CCU at noon-time. Patient was at the time on BIPAP at 100% FIO2 with oxygen saturation 87-91%, RR in high 40s and significant labor of breathing. Patient was intubated by anesthesiologist urban design consultant at noon- please see anesthesia record for details. Patient was placed on PRVC mode with 100% FIO2 oxygen saturation increased to 95-99%. Propofol and fentanyl drips were started for sedation and comfort- patient required multiple boluses of 2-4ml of fentanyl and propofol and high doses of both drips to relax but continued to breath at 30-35 breaths per min and his breathing was competing with ventilator breaths- consulted with MD continue high doses of sedation meds, MD adjusted ventilator settings. BP became label with increased doses of sedation drips-consulted with MD patient was given 250ml NS bolus x1 over 1h with MAP increasing to 60-70 ranges. Patient had an episode of agitation this evening after routine abdominal ultrasound was completed. Patient was unable to relax sedation medications were increased but patient continued to breathe against the ventilator. Ativan 1mg IV was given PRN with no change in behavior. Placed on PC mode by RT after consulting with MD with some improvement. After 45 of increased agitation patient was started on nimbex drip at 2mcg/kg/min without bolus. Patient was also started on levophed drip at 0.05mcg/kg/min for BP support witch improved within 15 min- MD aware-continue assessment- report was given to the oncoming shift RN.
--- NOTE | 2017-04-22 20:42 | ABG ---
DateTimeAnalyzed 20:34:00 -_ pH ____7.290 - 7.350 7.450 pCO2 ___63.4__ -mmHg 35.0 45.0 pO2 ___87.8__ -mmHg 69.0 116 HCO3- ___29.5__ -mmol/L 22.0 26.0 ABE ____1.8__ -mmol/L -2.0 2.0 tHb ___13.2__ -g/dL O2Hb ___94.0__ -% COHb ____0.9__ -% MetHb ____1.0__ -% sO2 ___95.8__ -% 25.0 FIO2 ___70.0__ -% PEEP ____8.0__ -cmH2O Set_RR ___30.0__ -b/min Drawn By AF - Date/Time Notified____ 20:41:00 -_ Spontaneous_RR ___30.0__ -b/min Oxygen Device 1 VENTILATOR - Notified By AF - Notified Whom ___Dr. Fuimaono - B 761 -mmHg tO2 ___17.5__ -Vol% OrderingPhysicianInitials mf - Edvin test _Positive -
[2017-04-22] MEDS: Chlorhexidine 0.12% 15 mL Oral Solution MUC_MEMBRM SCH (21:13)
[2017-04-23] VITALS (14 sets, daily range): BP systolic 88–126; BP diastolic 55–88; PULSE 81–102; RESP 23–30; O2SAT 90–99
[2017-04-23] MEDS: Propofol Inj 1,000,000 MCG in IV Premix 1 EACH IV SCH ×7 (00:09→22:04)
[2017-04-23] MEDS: 0.9% Sodium Chloride 1,000 ML IV SCH ×2 (00:09→12:17)
[2017-04-23] MEDS: Chlorhexidine 0.12% 15 mL Oral Solution MUC_MEMBRM SCH ×6 (00:09→20:17)
[2017-04-23] MEDS: Albuterol-Ipratropium 3 mL Inhalation Solution NEB SCH ×6 (00:41→20:13)
--- NOTE | 2017-04-23 01:45 | NUR ---
vented on nimbex/sedation vented, 70% fio2 per vent, pressure control, rate 30/30, hob up, ls at 1999= decreased anteriorly, course rhonchi t/o laterally-more on left, somewhat decreased on right, sx sml amount of thin whitish sputum per ett, oral care done, rt noted cxr with ett too high, ett advanced 3cm per hospitalist order and cxr done, hospitalist states ett now in good position, ls less decreased now then at 1999, mrsa swab sent to lab, abd resp movement noted with 1999 assessment, tof = 3/4, nimbex gtt increased from 2-2.5mcg/kg/min, effective with better resp pattern, fentanyl gtt at 250-275mcg/hr and propofol at 50mcg/kg/min, fire extinguisher sprinkler inspector called hospital for update, updated on pt's sedation/nimbex/sats in lower 90's, pt more compliant with ventilator, abg done post nimbex increase, rt spoke with fire extinguisher sprinkler inspector and states md ordered that pt remain on pressure control overnight, abg's ordered again for am, isolation precautions taken, bis=50's to low 60's, pt not tolerating turning very well, pt turned onto left side and sats decreased to 88% for approx 10 minutes, then sats remained in 92-93% range, ns at 80ml/hr, good uop per f/c, norepi gtt decreased from 0.05-0.02mcg/kg/min, continue to titrate down as able, see flow sheet, right picc intact, greenish bilious output per ogt, ogt placement wnl, tele- sr hr 70-90, afebrile, slightly diaphoretic, see ccu flow sheet, plan:vent/resp support,
[2017-04-23 03:40] LABS: BASOPHILS % (AUTO) 0.3 % (0-3); EOSINOPHILS % (AUTO) 4.9 % (0-5); MONOCYTES % (AUTO) 9.4 % (4-12); Mean Corpuscular Hemoglobin 30.4 pg (27.0-35.0); NEUTROPHILS % (AUTO) 76.1 % (40-74); Platelet Count 255 bil/L (150-400)
[2017-04-23 04:39] LABS: Magnesium 2.1 mg/dL (1.6-2.6); Phosphorus 4.7 mg/dL (2.5-4.9)
--- NOTE | 2017-04-23 04:55 | ABG ---
DateTimeAnalyzed 04:50:00 -_ pH ____7.301 - 7.350 7.450 pCO2 ___68.2__ -mmHg 35.0 45.0 pO2 ___73.9__ -mmHg 69.0 116 HCO3- ___32.6__ -mmol/L 22.0 26.0 ABE ____4.6__ -mmol/L -2.0 2.0 tHb ___12.8__ -g/dL O2Hb ___92.3__ -% COHb ____1.0__ -% MetHb ____0.9__ -% sO2 ___94.1__ -% 25.0 FIO2 ___70.0__ -% PEEP ____8.0__ -cmH2O Set_RR ___30.0__ -b/min Drawn By AF - Date/Time Notified____ 04:54:00 -_ Spontaneous_RR ___30.0__ -b/min Oxygen Device 1 VENTILATOR - Notified By AF - Notified Whom ___Dr. Kendregan - B 762 -mmHg tO2 ___16.6__ -Vol% OrderingPhysicianInitials bak - Edvin test _Positive -
[2017-04-23] MEDS: fentaNYL 2,500 mCg/250 mL 2,500 MCG in IV Premix 1 EACH IV SCH ×2 (06:00→15:00)
--- NOTE | 2017-04-23 07:55 | DRSVH ---
PROCEDURE: X-RAY CHEST ONE VIEW, PORTABLE ([id number]) INDICATIONS: ET TUBE PLACEMENT TECHNIQUE: One view of the chest was acquired. COMPARISON: 04/22/20176705-7839 hrs. FINDINGS: Surgical changes and devices: Endotracheal tube is present with tip 6 cm above the kimberly. Nasogastri c tube is present with tip below the diaphragm. Right-sided PICC line has been placed with tip overly ing the distal SVC. Lungs and pleura: Bilateral alveolar infiltrates appear more diffuse with some central consolidation. No pneumothorax. No effusions. Mediastinum: Mediastinal contours appear normal. Heart size is normal. Bones and chest wall: No suspicious bony lesions. Overlying soft tissues appear unremarkable. IMPRESSION: 1. Interval right-sided PICC line placement. Other support tubes in place. 2. Bilateral pneumonia. Dictated by: Juan Pablo Caraballo M.D. on 04/23/2017 at 7:50 Approved by: Juan Pablo Caraballo M.D. on 04/23/2017 at 7:53
[2017-04-23] MEDS: Doxycycline Inj 100 MG in Dextrose 5% Minibag Plus 100 ML IV SCH ×2 (08:07→20:17)
[2017-04-23] MEDS: Linezolid Inj 600 MG in IV Premix 1 EACH IV SCH ×2 (08:08→20:17)
--- NOTE | 2017-04-23 08:36 | DRSVH ---
PROCEDURE: X-RAY CHEST ONE VIEW, PORTABLE ([id number]) INDICATIONS: ARDS TECHNIQUE: One view of the chest was acquired. COMPARISON: [facility], CR, XR CHEST 1VW (PORTABLE), 04/22/2017, 21:59. FINDINGS: Surgical changes and devices: Stable positioning of ETT, nasogastric tube and right PICC. Lungs and pleura: Diffuse, widespread bilateral pulmonary interstitial and air space opacities are p resent no significant change from prior examination. Mediastinum: Mediastinal contours appear normal. Heart size is normal. Bones and chest wall: No suspicious bony lesions. Overlying soft tissues appear unremarkable. IMPRESSION: Aside from technique differences, no significant interval change in diffuse edema and/or bilateral diffuse pneumonia. Developing ARDS cannot be excluded. Dictated by: Philip CLARKE Interpreted: Robin Caraballo MD on 04/23/2017 at 8:34 Transcribed by: TARA on 04/23/2017 at 8:35 Approved by: Juan Pablo Caraballo M.D. on 04/23/2017 at 8:39
[2017-04-23] MEDS: Cisatracurium 200,000 mCg/100 mL NS IV SCH ×4 (08:43→17:47)
--- NOTE | 2017-04-23 09:33 | PCM.PNMED ---
Subjective Date of Service Apr 23, 2017 Subjective None, patient is intubated and sedated. Exam Vital Signs Vital Sign - Last Date Time Temp Pulse Resp B/P Pulse Ox O2 Delivery O2 Flow Rate FiO2 04/23/17 08:23 37.5 102 30 106/57 93 Mechanical Ventilator 70 04/21/17 08:45 60 Intake and Output 04/22/17 04/22/17 04/23/17 Cumulative From/Thru 15:00 23:00 07:00 04/16/17 11:01 - 04/23/17 05:32 Intake Total 1224 ml 3582 ml 25452 ml Output Total 750 ml 1500 ml 78635 ml Balance 474 ml 2082 ml 90672 ml Intake Oral 8450 ml IV Total 1224 ml 3582 ml 61988 ml Output Urine Total 650 ml 1350 ml 25622 ml Gastric Drainage Total 100 ml 150 ml 250 ml # Voids 2 # Bowel Movements 0 0 Exam General appearance: Sedated on the ventilator. OG tube in place. Chest is clear with good breath sounds bilaterally. Peak inspiratory pressure with a tidal volume of 410 is 38, plateau is 28. PEEP is set at 8, measured at 14. Respiratory rate 30. Tidal volume 400. Heart: Regular rhythm. Heart tones normal. Abdomen soft. Extremities: No pretibial edema. IVs and Medications IV Fluids NS at 80mls/hr IV Lab and Diagnostics Laboratory Tests Test 04/22/17 13:08 04/22/17 18:30 04/23/17 03:25 04/23/17 03:34 Body Fluid Source Bronchial washing Body Fluid Color Straw (Clear) Body Fluid Appearance Hazy Body Fluid WBC 258/mm3 Body Fluid RBC 50/mm3 Body Fluid Polynuclear WBCs 46% Body Fluid Lymphocytes 20% Body Fluid Monocytes 10% Body Fluid Eosinophils 24% Body Fluid Basophils 0% Hold Urine Received (Received) White Blood Count 7.7th/mm3 (3.8-10.1) Red Blood Count 4.11mil/mm3 (4.40-5.80) Hemoglobin 12.5g/dL (13.8-17.2) Hematocrit 37.4% (41.0-50.0) Mean Corpuscular Volume 91.0fL (81-100) Mean Corpuscular Hemoglobin 30.4pg (27.0-35.0) Mean Corpuscular Hemoglobin Concent 33.4% (32.0-37.0) Red Cell Distribution Width 12.0% (12.3-15.4) Platelet Count 255bil/L (150-400) Neutrophils (%) (Auto) 76.1% (40-74) Lymphocytes (%) (Auto) 9.2% (14-46) Monocytes (%) (Auto) 9.4% (4-12) Eosinophils (%) (Auto) 4.9% (0-5) Basophils (%) (Auto) 0.3% (0-3) Sodium Level 139mEq/L (134-144) Potassium Level 4.6mEq/L (3.5-5.2) Chloride Level 100mEq/L (97-108) Carbon Dioxide Level 30mmol/L (18-29) Blood Urea Nitrogen 11mg/dL (6-24) Creatinine 0.59mg/dL (0.76-1.27) Estimat Glomerular Filtration Rate 152mL/min (>59) Glucose Level 111mg/dL (60-99) Lactic Acid Level 0.9mmol/L (0.4-2.0) Calcium Level 8.2mg/dL (8.5-10.1) Phosphorus Level 4.7mg/dL (2.5-4.9) Magnesium Level 2.1mg/dL (1.6-2.6) Total Bilirubin 0.3mg/dL (0.0-1.2) Aspartate Amino Transf (AST/SGOT) 14U/L (0-50) Alanine Aminotransferase (ALT/SGPT) 10U/L (0-44) Alkaline Phosphatase 161U/L (25-150) Total Protein 5.6g/dL (6.4-8.4) Albumin 2.2g/dL (3.4-5.0) Prealbumin 8mg/dL (20-40) Procalcitonin 0.22ng/mL (0.00-0.08) Thyroid Stimulating Hormone (TSH) 0.807uIU/mL (0.450-4.500) Test 04/23/17 03:40 Microbiology 04/16/17 Blood Culture - Final, Complete NO GROWTH AFTER 5 DAYS 04/22/17 MRSA (PCR) - Final, Complete Mrsa Pos By Pcr Testing 04/18/17 Streptococcus pneumoniae Ag Screen - Final, Complete, negative Result Diagram: 04/23/17 0323 04/23/17 0325 X-Rays, CTs and MRIs Date of Service: 04/16/17 1150 PROCEDURE: X-RAY CHEST ONE VIEW, PORTABLE ([id number]) IMPRESSION: Severe bilateral pneumonia. Dictated by: Celeste Bynum M.D. on 04/16/2017 at 12:19 Approved by: Celeste Bynum M.D. on 04/16/2017 at 12:20 Date of Service: 04/16/17 1214 PROCEDURE: CT ANGIO CHEST PULMONARY EMBOLISM ([id number]) IMPRESSION: 1. No pulmonary embolus. 2. Severe diffuse pneumonia. 3. Coronary artery disease. Dictated by: Celeste Bynum M.D. on 04/16/2017 at 12:51 Approved by: Celeste Bynum M.D. on 04/16/2017 at 12:52 Chest X-ray ( 04/22/2017) reviewed : Worsening diffused alveolar infiltrate 12-lead ECG SR. no significant ST elevation/depression. Cardiac Echo Impressions Interpretation Summary The left ventricle is normal in size. The ejection fraction is estimated to be 55-60%. There is a noticable interventricular septal shift that varies with respiration. Paradoxical septal motion is consistent with right ventricular pressure overload. The right ventricle is moderately dilated. The right ventricular systolic function is normal (TAPSE: 3.3 cm). There is mild tricuspid regurgitation. The right ventricular systolic pressure is estimated at 58 mmHg assuming a right atrial pressure of 8 mm Hg. There is moderate pulmonary hypertension. Additional Diagnostics Abdominal U/S 04/22/17: IMPRESSION: Splenomegaly at 15 cm craniocaudad, no abnormal free fluid seen throughout the peritoneal space. Prominent fatty infiltration within the liver. Quality of visualization was somewhat limited by the combative uncooperative nature of the current clinical status of the patient. Assessment & Plan 52 year old male who is generally healthy with past medical history notable for distant inguinal hernia with complications including bowel resection from incarceration, hypercholesterolemia and low testosterone presented with 2 days of ongoing and worsening generalized malaise, cough, fever, chills, and shortness of breath. 1. Acute respiratory distress syndrome. As mentioned in earlier notes, sputum growing probable Staph aureus. Pulmonary Lavage indicates eosinophilia - Continuing Ceftriaxone, Linezolid and Doxycycline IV for possible MRSA/ Community acquired pneumonia - Mechanical ventilation with paralysis and sedation - NS 80mls/hr - Nebulized albuterol and ipratropium 2. Eosinophilic Pneumonia, POA, active - Considering treatment with steroids. 3. Elevated Alkaline phosphatase, not POA, improving - No evidence of biliary tree inflammation on abdominal U/S, but study was difficult with unsettled patient. 4. Moderate Splenomegaly, chronicity unknown - 15cm craniocaudad measurement on abdominal ultrasound - This may contribute to the diagnostic picture as the spleen is enlarged in many types of conditions, infectious, autoimmune, cirrhosis, CHF, but is not specific. Pain Evaluation: Adequate Pain Control GI Prophylaxis: Not indicated VTE Prophylaxis: Sub-Q Heparin (Unfractionated), SCDs VTE Mechanical Devices: Intermittant Pneumatic CD Resuscitation Status: CPR: Attempt Resuscitation (discussed and verified with patient) Rick Dailey DO Apr 23, 2017 09:33 Resuscitation Status: CPR: Attempt Resuscitation (discussed and verified with patient) Rick Dailey DO Apr 23, 2017 09:33
--- NOTE | 2017-04-23 09:55 | PROG NOTE ---
[address] [address] PROGRESS NOTE PATIENT: MI REED : 1965 MR#: [id number] ADMIT: 04/16/2017 JOB ID: [id number] DATE: 04/23/2017 REASON FOR FOLLOW UP: Respiratory failure secondary to bilateral pulmonary infiltrates. INTERVAL HISTORY: Since yesterday when I saw the patient, he has been intubated and has undergone a mini BAL procedure. He is currently on the ventilator with requiring high concentrations of oxygen as well as paralysis for adequate ventilation and oxygenation. Of course, no additional history is available from him. This case was discussed in detail with the ICU team during rounds today. PHYSICAL EXAMINATION: Reveals an intubated, sedated and paralyzed gentleman, whose current temp is 37.5. He has been afebrile except for a single temp spike to 38.1 on the evening of April 21, and has been afebrile throughout his eight day hospital stay. Pulse is currently 100, respiratory rate is ventilator dependent, of course, since he is paralyzed. Blood pressure 106/57. He is requiring low-dose norepinephrine since he has been paralyzed on the ventilator to maintain his blood pressure. He is on 70%, 10 of PEEP and saturating 93%. Examination of the eyes reveals no conjunctivitis or scleral icterus. Oral endotracheal tube, oral gastric tube in usual position. Central line without evidence of infection. Lungs with diffuse bilateral crackles throughout both lung pedroza in their entirety. Cardiac tones distant. Regular rate and rhythm. Abdomen is soft, without apparent mass or abnormality. A Anders catheter is present. No rash is noted. LABORATORIES: Include white count 7700, with 5% eos now, totally eosinophilic about 400 in the peripheral blood. Creatinine 0.59. LFTs relatively normal, except alk phos 161. Crypto negative. Onto Hantavirus still pending. Hepatitis C negative. HIV negative. Micro studies include MRSA which grew from a nasal swab as well as from the sputum. Note that when the sputum grew MRSA though, there were a few polys and no predominant organism on the Gram stain. This is a MRSA isolate which is sensitive to linezolid. IMAGING: Imaging today shows continued diffuse bilateral infiltrates, ARDS versus diffuse pneumonia. Note that the mini BAL wash from yesterday had 260 white cells, of which 1/4 were eosinophils. IMPRESSION: This continues to be a perplexing and difficult case in a patient who is now in his 8th day here in the hospital and has steadily worsened to the point were he has required intubation for bilateral interstitial type infiltrates consistent with adult respiratory distress syndrome (ARDS). Recall yesterday we were becoming increasingly concerned about possibilities including Chito-Rich syndrome, cryptogenic organizing pneumonia (MACHINE MAINTENANCE REPAIRER), or he eosinophilic pneumonia. Yesterday's mini BAL points us towards the eosinophilic pneumonia as he does have a developing eosinophilia in his peripheral blood but more importantly, quite a significant eosinophilia in his lavaged fluid. This almost mandates the institution of steroids. As to whether or not he might have underlying bacterial pneumonia or fungal pneumonia is unclear, though I tend to doubt it. He has been colonized with methicillin-resistant Staphylococcus aureus (MRSA) since the beginning, but he has been on treatment since the beginning as well and he has steadily worsened. His Gram stain of his sputum and chest x-rays would be very atypical for MRSA pneumonia, though I think we need to cover it. RECOMMENDATIONS: 1. Discussed during rounds would institute steroids, and Pulmonary consultant [employer] vice president [employer] (ex ) certainly agrees with this plan. 2. I would continue ceftriaxone to finish a 10 day course. 3. Will continue doxycycline for about five more days. 4. Would continue linezolid for 5-10 more days. 5. Will continue to closely follow with you and monitor the remaining serologies, including Hantavirus.
--- NOTE | 2017-04-23 10:33 | PCM.PNMED ---
Subjective Date of Service Apr 23, 2017 Subjective Patient seen and examined at bedside . He remains on ventilator and was put on pressor overnight. Afebrile. Sputum culture grew MRSA and bronchial lavage compatible with eosinophilic pneumonia Exam Vital Signs Vital Sign - Last Date Time Temp Pulse Resp B/P Pulse Ox O2 Delivery O2 Flow Rate FiO2 04/23/17 08:23 37.5 102 30 106/57 93 Mechanical Ventilator 70 04/21/17 08:45 60 Intake and Output 04/22/17 04/22/17 04/23/17 Cumulative From/Thru 15:00 23:00 07:00 04/16/17 11:01 - 04/23/17 05:32 Intake Total 1224 ml 3582 ml 29364 ml Output Total 750 ml 1500 ml 84507 ml Balance 474 ml 2082 ml 33762 ml Intake Oral 8450 ml IV Total 1224 ml 3582 ml 38215 ml Output Urine Total 650 ml 1350 ml 32986 ml Gastric Drainage Total 100 ml 150 ml 250 ml # Voids 2 # Bowel Movements 0 0 Exam Gen : ill appearing. Sedated and on mechanical ventilation HEENT : Orally intubated Sclerae is anicteric. MONICA Chest : No chest tenderness, no deformity. Neck: No stridor, no JVD, trachea is midline, no cervical lymphadenopathy Lungs: Bilateral crackles. No wheezing Heart: S1, S2 regular tendon negative for murmur Abdomen: Benign. Bowel sounds normal all quadrants, no palp mass Extremity: No edema, no calf tenderness, no cyanosis Skin: No rash, no ulcers Neuro :sedated. IVs and Medications Medications Reviewed: Medications were reviewed in detail Lab and Diagnostics Result Diagram: 04/23/17 0325 04/23/17 0325 X-Rays, CTs and MRIs Date of Service: 04/16/17 1150 PROCEDURE: X-RAY CHEST ONE VIEW, PORTABLE ([id number]) IMPRESSION: Severe bilateral pneumonia. Dictated by: Celeste Bynum M.D. on 04/16/2017 at 12:19 Approved by: Celeste Bynum M.D. on 04/16/2017 at 12:20 Date of Service: 04/16/17 1214 PROCEDURE: CT ANGIO CHEST PULMONARY EMBOLISM ([id number]) IMPRESSION: 1. No pulmonary embolus. 2. Severe diffuse pneumonia. 3. Coronary artery disease. Dictated by: Celeste Bynum M.D. on 04/16/2017 at 12:51 Approved by: Celeste Bynum M.D. on 04/16/2017 at 12:52 Chest X-ray ( 04/22/2017) reviewed : Worsening diffused alveolar infiltrate 12-lead ECG SR. no significant ST elevation/depression. Cardiac Echo Impressions Interpretation Summary The left ventricle is normal in size. The ejection fraction is estimated to be 55-60%. There is a noticable interventricular septal shift that varies with respiration. Paradoxical septal motion is consistent with right ventricular pressure overload. The right ventricle is moderately dilated. The right ventricular systolic function is normal (TAPSE: 3.3 cm). There is mild tricuspid regurgitation. The right ventricular systolic pressure is estimated at 58 mmHg assuming a right atrial pressure of 8 mm Hg. There is moderate pulmonary hypertension. Additional Diagnostics Abdominal U/S 04/22/17: IMPRESSION: Splenomegaly at 15 cm craniocaudad, no abnormal free fluid seen throughout the peritoneal space. Prominent fatty infiltration within the liver. Quality of visualization was somewhat limited by the combative uncooperative nature of the current clinical status of the patient. Assessment & Plan 52 years old male who is generally healthy with past medical history notable for hypercholesterolemia and low testosterone presents with 2 days of ongoing and worsening generalized malaise, cough, fever, chills, and shortness of breath. 1. Acute Respiratory Failure 2. ARDS 3. Eosinophyic Pneumonia 4. Pulmonary Hypertension 5. MRSA infection Patient still very sick, now intubated and sedated . m Bronchial lavage is consistent with Eosinophilic Pneumonia . Discussed during multi disciplinary round about initiation of steroid . Continue mechanical ventilation. Nebulized bronchodilators Pulmonary following. Sputum positive for MRSA . Patient currently on Ceftriaxone , Doxycycline and Linezolid . ID consult and recommendation appreciated Prognosis guarded . 52 year old male who is generally healthy with past medical history notable for distant inguinal hernia with complications including bowel resection from incarceration, hypercholesterolemia and low testosterone presented with 2 days of ongoing and worsening generalized malaise, cough, fever, chills, and shortness of breath. 1. Acute respiratory distress syndrome. Intu 2. Eosinophilic Pneumonia, POA, active - Considering treatment with steroids. 3. Elevated Alkaline phosphatase, not POA, improving - No evidence of biliary tree inflammation on abdominal U/S, but study was difficult with unsettled patient. 4. Moderate Splenomegaly, chronicity unknown - 15cm craniocaudad measurement on abdominal ultrasound - This may contribute to the diagnostic picture as the spleen is enlarged in many types of conditions, infectious, autoimmune, cirrhosis, CHF, but is not specific. GI Prophylaxis: Not indicated VTE Prophylaxis: Sub-Q Heparin (Unfractionated), SCDs VTE Mechanical Devices: Intermittant Pneumatic CD Resuscitation Status: CPR: Attempt Resuscitation (discussed and verified with patient) Time spent 35 minutes Syed Zuniga MD Apr 23, 2017 10:33
--- NOTE | 2017-04-23 11:21 | NUR ---
NUTRITION FOLLOW UP: ASSESS: 52 YO M admitted to CCU for eosinophilic pneumonia with ARDS. Pt required intubation /. Pt has been NPO X 2 days. PMHX: hypercholesterolemia LABS: Reviewed. Cr 0.59, Glu 111, Ca 8.2, Alk Phos 161, Alb 2.2, PAB 8 MEDS: Reviewed. Nimbex, Pressor, Propofol, Fentanyl. GI: No BM noted. OGT in place. SKIN: Wound eval pending. CURRENT WT: 95.5 kg, BMI 32.0 kg/m2, IBW 70 kg DIET: NPO X 2 days. ESTIMATED NEEDS: BMI/VENT Calories: 9987-2110 kcal/day (20-22 kcal/kg BW) Protein: 105-126 g/day (1.5-1.8 g/kg IBW) Fluids: 2280 ml/day (25 ml/kg) NUTRITION DIAGNOSIS: 1.) Inadequate oral intake related to respiratory status as evidence by vent/NPO status.---PERSISTS. NUTRITION INTERVENTION: 1.) If pt unable to be extubated recommend enteral nutrition. Recommend Pulmocare starting at 10 ml/hr, once tolerance established, advance 10 ml q 6 hr to goal rate of 60 ml/hr. At goal TF will provide 1980 kcal, 83 g protein; meeting 100% calorie, 79% protein needs. Recommend adding 1 packet Prosource protein BID to provide a total of 105 g protein; meeting 100% protein needs. 2.) Adjust goal rate based on daily propofol rate. MONITOR/EVALUATE: NPO/Vent status, nutrition support, GI, wt, POC, nutrition status. Follow per high nutrition risk guidelines.
[2017-04-23] MEDS: Heparin 5,000 Unit/mL Inj SUBQ SCH ×2 (12:17→17:35)
[2017-04-23] MEDS: cefTRIAXone Inj 2,000 MG in Dextrose 5% Minibag Plus 50 ML IV SCH (13:32)
[2017-04-23] MEDS: MethylprednisoLONE Sodium Succinate 62.5 mg/mL 2 mL Inj IVPUSH SCH ×2 (14:21→20:17)
[2017-04-23] MEDS: Norepineph 8,000 mCg/250 mL NS 8,000 MCG in IV Premix 1 EACH IV SCH (15:15)
--- NOTE | 2017-04-23 15:23 | PCM.PNMED ---
Subjective Date of Service Apr 23, 2017 Subjective Sedated, paralyzed intubated. at bedside updated as to condition and plan. Reviewed ARDS and eosinophilic pneumonia with her. Exam Vital Signs Vital Sign - Last Date Time Temp Pulse Resp B/P Pulse Ox O2 Delivery O2 Flow Rate FiO2 04/23/17 12:15 93 94/57 96 70 04/23/17 08:23 37.5 30 Mechanical Ventilator 04/21/17 08:45 60 Intake and Output 04/22/17 04/22/17 04/23/17 Cumulative From/Thru 14:59 22:59 06:59 04/16/17 11:01 - 04/23/17 05:32 Intake Total 1224 ml 3582 ml 05978 ml Output Total 750 ml 1500 ml 01689 ml Balance 474 ml 2082 ml 26246 ml Intake Oral 8450 ml IV Total 1224 ml 3582 ml 75462 ml Output Urine Total 650 ml 1350 ml 09737 ml Gastric Drainage Total 100 ml 150 ml 250 ml # Voids 2 # Bowel Movements 0 0 Exam Middle aged man orally intubated in NAD Lungs Decreased breath sounds diffusely, NO wheezes, rales CV RRR, no m/g/r Abd Soft, healed midline scar. No HSM, NO BTs Ext No edema, warm, no cyanosis Neuro Pharmacologically paralyzed. Lab and Diagnostics Result Diagram: 04/23/17 0325 04/23/17 0325 X-Rays, CTs and MRIs Date of Service: 04/16/17 1150 PROCEDURE: X-RAY CHEST ONE VIEW, PORTABLE ([id number]) IMPRESSION: Severe bilateral pneumonia. Dictated by: Celeste Bynum M.D. on 04/16/2017 at 12:19 Approved by: Celeste Bynum M.D. on 04/16/2017 at 12:20 Date of Service: 04/16/17 1214 PROCEDURE: CT ANGIO CHEST PULMONARY EMBOLISM ([id number]) IMPRESSION: 1. No pulmonary embolus. 2. Severe diffuse pneumonia. 3. Coronary artery disease. Dictated by: Celeste Bynum M.D. on 04/16/2017 at 12:51 Approved by: Celeste Bynum M.D. on 04/16/2017 at 12:52 Chest X-ray ( 04/22/2017) reviewed : Worsening diffused alveolar infiltrate 12-lead ECG SR. no significant ST elevation/depression. Cardiac Echo Impressions Interpretation Summary The left ventricle is normal in size. The ejection fraction is estimated to be 55-60%. There is a noticable interventricular septal shift that varies with respiration. Paradoxical septal motion is consistent with right ventricular pressure overload. The right ventricle is moderately dilated. The right ventricular systolic function is normal (TAPSE: 3.3 cm). There is mild tricuspid regurgitation. The right ventricular systolic pressure is estimated at 58 mmHg assuming a right atrial pressure of 8 mm Hg. There is moderate pulmonary hypertension. Additional Diagnostics Abdominal U/S 04/22/17: IMPRESSION: Splenomegaly at 15 cm craniocaudad, no abnormal free fluid seen throughout the peritoneal space. Prominent fatty infiltration within the liver. Quality of visualization was somewhat limited by the combative uncooperative nature of the current clinical status of the patient. Assessment & Plan Previously healthy middle aged man admitted with one week of malaise, cough, SOB , subjective fevers ans chills. Admission CXR showed diffuse reticular infiltrates. Progressed to respiratory failure on Sunday, 04/22 and was intubated by Anesthesia. 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 Non-invasive bronchial washings show 24% eosinophils. His reports that he uses daily NSAIDS for arthralgias and myalgias from his strenuous physical labor. IMP 1 Acute Hypoxemic Respiratory Failure / ARDS. Fits criteria for acute eosinophilic pneumonia. His inhalation of construction dust may play a role but his NSAIDS should also be suspected as contributing. Doubt very much this is coccidiomycosis or a helminthic infection. The rapid onset and lack of extrapulmonary organ involvement makes Churg-Jane very unlikely. I have started IV steroids today. Will continue Linezolid for now but stop ceftriaxone. Will try to stop NMB and hope to begin weaning of sedation. PLAN Solumedrol 60 q6 Lung protective strategy DC Ceftriaxone GI and VTE prophylaxis DC Nimbex = GI Prophylaxis: Not indicated VTE Prophylaxis: Sub-Q Heparin (Unfractionated), SCDs VTE Mechanical Devices: Intermittant Pneumatic CD Resuscitation Status: CPR: Attempt Resuscitation (discussed and verified with patient) Albert Nguyen MD Apr 23, 2017 15:23
--- NOTE | 2017-04-23 16:23 | NUR ---
Wound Note 52 yo male admitted CCU with ARDS, intubated and sedated. NPO x 2days. Currently no pressure related skin issues, nursing reports mild erythema at the periarea due to heat and moisture. Patient on a Low air loss CCU bed. Frequent repositioning in place.
--- NOTE | 2017-04-23 18:40 | NUR ---
P: Resp, Neuro, Hemodynamics, Social I,E: Pt continues on the vent, changes were made this afternoon by shubham JON. Sats are high 90's on 70% FIO2. Small to scant clear sputum. Pt was on nimbex this am and sedated with BIS numbers in the 40's to 50's. At 1400hrs nimbex was turned off per pulmonology. Pt was placed back on restraints as he started moving his arms and legs in the bed. Pt continues on sedation, but Fentanyl dose decreased to 150mcg. Propofol is at 50mcg. Pt opens eyes and then goes back to sleep, does not follow commands. BP is somewhat labile ranging from 88 sys to 130 sys. Norepi remains at .02mcg. UOP adequate at 750cc out today. OG had 200cc brown liquid out. Pt temp has been 37.2 -37.5. Pt's has been in and out today and has been updated by MD's. Pt's siblings and daughter has also been in to visit today.
--- NOTE | 2017-04-23 19:59 | ABG ---
DateTimeAnalyzed 19:54:00 -_ pH ____7.328 - 7.350 7.450 pCO2 ___61.6__ -mmHg 35.0 45.0 pO2 130 -mmHg 69.0 116 HCO3- ___31.5__ -mmol/L 22.0 26.0 ABE ____4.3__ -mmol/L -2.0 2.0 tHb ___13.1__ -g/dL O2Hb ___97.1__ -% COHb ____0.7__ -% MetHb ____1.0__ -% sO2 ___98.8__ -% 25.0 FIO2 ___65.0__ -% PEEP ___15.0__ -cmH2O Set_RR ___20.0__ -b/min Drawn By AF - Date/Time Notified____ 19:58:00 -_ Spontaneous_RR ___30.0__ -b/min Oxygen Device 1 VENTILATOR - Notified By AF - Notified Whom ___Dr. Fuimaono - B 759 -mmHg tO2 ___18.1__ -Vol% OrderingPhysicianInitials mf - Edvin test _Positive -
[2017-04-23] MEDS: Famotidine Inj 20 MG in IV Premix 1 EACH IV SCH (20:17)
[2017-04-24] VITALS (14 sets, daily range): BP systolic 94–114; BP diastolic 53–71; PULSE 69–87; RESP 21–28; O2SAT 94–100
[2017-04-24] MEDS: Chlorhexidine 0.12% 15 mL Oral Solution MUC_MEMBRM SCH ×6 (00:05→20:25)
[2017-04-24] MEDS: Heparin 5,000 Unit/mL Inj SUBQ SCH ×3 (00:06→17:18)
[2017-04-24] MEDS: Albuterol-Ipratropium 3 mL Inhalation Solution NEB SCH ×7 (00:08→23:55)
[2017-04-24] MEDS: Propofol Inj 1,000,000 MCG in IV Premix 1 EACH IV SCH ×9 (00:39→22:03)
[2017-04-24] MEDS: MethylprednisoLONE Sodium Succinate 62.5 mg/mL 2 mL Inj IVPUSH SCH ×4 (02:46→20:25)
[2017-04-24] MEDS: 0.9% Sodium Chloride 1,000 ML IV SCH ×2 (02:46→17:16)
[2017-04-24] MEDS: fentaNYL 2,500 mCg/250 mL 2,500 MCG in IV Premix 1 EACH IV SCH ×2 (04:27→14:47)
--- NOTE | 2017-04-24 04:30 | ABG ---
DateTimeAnalyzed 04:25:00 -_ pH ____7.349 - 7.350 7.450 pCO2 ___60.7__ -mmHg 35.0 45.0 pO2 184 -mmHg 69.0 116 HCO3- ___32.6__ -mmol/L 22.0 26.0 ABE ____5.8__ -mmol/L -2.0 2.0 tHb ___12.3__ -g/dL O2Hb ___97.7__ -% COHb ____0.7__ -% MetHb ____1.0__ -% sO2 ___99.4__ -% 25.0 FIO2 ___65.0__ -% PEEP ___15.0__ -cmH2O Set_RR ___20.0__ -b/min Drawn By AF - Date/Time Notified____ 04:29:00 -_ Spontaneous_RR ___30.0__ -b/min Oxygen Device 1 VENTILATOR - Notified By AF - Notified Whom ___Dr. Boudreaux - B 758 -mmHg tO2 ___17.2__ -Vol% Edvin test _Positive -
[2017-04-24 04:40] LABS: BASOPHILS % (AUTO) 0 % (0-3); EOSINOPHILS % (AUTO) 0.2 % (0-5); MONOCYTES % (AUTO) 1.6 % (4-12); Mean Corpuscular Hemoglobin 30.4 pg (27.0-35.0); Mean Corpuscular Volume 91.5 fL (81-100); NEUTROPHILS % (AUTO) 89.6 % (40-74); Platelet Count 278 bil/L (150-400)
[2017-04-24 05:21] LABS: ERYTHROCYTE SEDIMENTATION RATE 60 mm/hr (0-30)
[2017-04-24] MEDS: Cisatracurium 200,000 mCg/100 mL NS IV SCH ×4 (05:28→16:20)
--- NOTE | 2017-04-24 05:31 | NUR ---
Slight changes made with vent settings per RT. New vent settings 60/15/20/400. Sats continue in the high 90's. Small amt. white sputum from ETT. Pt had some EKG changes. Noticeable inverted T waves on rhythm strip that were not present before. EKG done which showed non specific T abnormalities. Troponins done and came back negative. Dr. Alvarez notified and no other new orders received. HR still sinus with inverted T's with rate in the 80-90's. Blood pressure improved, levophed off since 0100 with last pressure 119/68. Pt double stacking breaths and bucking the vent, increased fentanyl to 175 mcg with propofol maxed at 50 mcg. Will continue to closely monitor.
[2017-04-24] MEDS ORDERED: Furosemide 10 mg/mL 2 mL Inj IVPUSH ONE (07:40)
--- NOTE | 2017-04-24 08:07 | DRSVH ---
PROCEDURE: X-RAY CHEST ONE VIEW, PORTABLE ([id number]) INDICATIONS: pneumonia TECHNIQUE: One view of the chest was acquired. COMPARISON: [facility], CR, XR CHEST 1VW (PORTABLE), 04/23/2017, 6:13. FINDINGS: Surgical changes and devices: Stable position of ETT, nasogastric tube and a right PICC tip is not we ll-seen. Lungs and pleura: Diffuse, widespread bilateral pulmonary interstitial and air space opacities are p resent which have decreased from prior examination. No pleural effusion or pneumothorax. Mediastinum: Mediastinal contours appear normal. Heart size is normal. Bones and chest wall: No suspicious bony lesions. Overlying soft tissues appear unremarkable. IMPRESSION: 1. Decreasing pulmonary edema and/or diffuse bilateral pneumonia compared to prior examination. 2. PICC tip not well-seen otherwise stable support lines and tubes. Dictated by: Philip Nguyen [facility] Interpreted: Lorenza Payan MD on 04/24/2017 at 8:06 Transcribed by: VIKTOR on 04/24/2017 at 8:07 Approved by: Lorenza Payan M.D. on 04/24/2017 at 21:06
[2017-04-24] MEDS: Linezolid Inj 600 MG in IV Premix 1 EACH IV SCH ×2 (08:08→20:24)
[2017-04-24] MEDS: Doxycycline Inj 100 MG in Dextrose 5% Minibag Plus 100 ML IV SCH ×2 (08:08→20:24)
[2017-04-24] MEDS: Famotidine Inj 20 MG in IV Premix 1 EACH IV SCH ×2 (08:09→20:24)
--- NOTE | 2017-04-24 08:46 | PROG NOTE ---
[address] [address] PROGRESS NOTE PATIENT: MI REED : 1965 MR#: [id number] ADMIT: 04/16/2017 JOB ID: [id number] DATE: 04/24/2017 REASON FOR FOLLOW UP: Bilateral pulmonary infiltrates with ventilator dependent respiratory failure and a mini-BAL indicating pulmonary eosinophilia. INTERVAL HISTORY: Overnight, the patient has improved on the ventilator. Successful efforts have been made to turn down his FiO2 somewhat down to 50% now, though he remains on 15 of PEEP. The patient for his part is completely awake despite very high levels of sedation. He nods his head appropriately back and forth, but really cannot give too much history other than he has no fevers or chills and feels as if he is improving. PHYSICAL EXAMINATION: Reveals an afebrile gentleman in no acute distress on the ventilator. Temp 36.7, pulse 95, respiratory rate in the mid 20s, blood pressure 112/71. The patient is off vasopressor agents. He is on 50% FiO2, 15 of PEEP. He is no longer paralyzed obviously and his O2 sat 99% to 100% on those settings. The patient seems completely alert and even seems to respond to a weak joke. His eyes are without conjunctivitis. The oroendotracheal tube and orogastric tube in good position. Lungs with decreased, but still present diffuse rales bilaterally. Cardiac tones hard to hear, but with regular rate and rhythm. Abdomen soft, nontender. Extremities without edema or cellulitis. LABORATORIES: Include white count 4300, platelet count 278, creatinine 0.48. Liver function tests normal. The last procalcitonin was 0.22 and that never really changed throughout his hospital stay. Hantavirus serology is pending. Otherwise our serologic workup including galactomannan has been negative. QuantiFERON Gold is also still outstanding. Cultures positive only for MRSA in sputum and in nares. Otherwise we have negative AFB, negative fungal cultures, negative sputum cultures, negative respiratory viral PCR, and negative blood cultures. IMAGING: Including today's chest x-ray shows decreasing bilateral pulmonary infiltrates which is fairly striking. IMPRESSION: It looks more and more as if this is a noninfectious process, though I am still concerned about the fact that we found methicillin resistant Staphylococcus aureus in numerous specimens including sputum and nares and methicillin resistant Staphylococcus aureus could be playing some role in this. The optimal agent there is probable linezolid. Additionally we still have an outstanding Hantavirus serology, and I think that is less likely now that we know there is excess pulmonary eosinophils which points us in a different direction, but we still await that important serology. RECOMMENDATIONS: 1. The pulmonary investigations consultant has stopped the ceftriaxone which is reasonable given the fact the patient received a full week of it. 2. I would continue with doxycycline and linezolid through April 28, but that is a tentative stop date. 3. We await the Hantavirus, QuantiFERON Gold, and other outstanding serologies. 4. Will continue to follow this patient with you.
--- NOTE | 2017-04-24 09:10 | PCM.PNMED ---
Subjective Date of Service Apr 24, 2017 Subjective Patient is opening his eyes this morning, making eye contact, nodding, but still very drowsy and sedated. He fights the vent and would pull his ET tube and IVs if not sedated. Exam Vital Signs Vital Sign - Last Date Time Temp Pulse Resp B/P Pulse Ox O2 Delivery O2 Flow Rate FiO2 04/24/17 07:54 95 112/71 99 50 04/24/17 07:14 36.7 28 Mechanical Ventilator 04/21/17 08:45 60 Intake and Output 04/23/17 04/23/17 04/24/17 Cumulative From/Thru 15:00 23:00 07:00 04/16/17 11:01 - 04/24/17 06:17 Intake Total 2395 ml 2013 ml 88333 ml Output Total 950 ml 1175 ml 22691 ml Balance 1445 ml 838 ml 08756 ml Intake Oral 8450 ml IV Total 2395 ml 2013 ml 02246 ml Output Urine Total 750 ml 1100 ml 18372 ml Gastric Drainage Total 200 ml 75 ml 525 ml # Voids 2 # Bowel Movements 0 0 Exam General appearance: Sedated on the ventilator. OG tube in place. Chest is clear with good breath sounds bilaterally. Peak inspiratory pressure with a tidal volume of 400 is 38, plateau is 29. PEEP is set at 8, measured at 15. Respiratory rate 20. Tidal volume 400. Heart: Regular rhythm. Heart tones normal. Abdomen soft. Extremities: minor edema of hands and lower legs and feet. IVs and Medications IV Fluids NS 80mls/hr IV Medications Reviewed: Medications were reviewed in detail Lab and Diagnostics Result Diagram: 04/24/17 0435 04/24/17 0435 X-Rays, CTs and MRIs Date of Service: 04/16/17 1150 PROCEDURE: X-RAY CHEST ONE VIEW, PORTABLE ([id number]) IMPRESSION: Severe bilateral pneumonia. Dictated by: Celeste Bynum M.D. on 04/16/2017 at 12:19 Approved by: Celeste Bynum M.D. on 04/16/2017 at 12:20 Date of Service: 04/16/17 1214 PROCEDURE: CT ANGIO CHEST PULMONARY EMBOLISM ([id number]) IMPRESSION: 1. No pulmonary embolus. 2. Severe diffuse pneumonia. 3. Coronary artery disease. Dictated by: Celeste Bynum M.D. on 04/16/2017 at 12:51 Approved by: Celeste Bynum M.D. on 04/16/2017 at 12:52 Chest X-ray ( 04/22/2017) reviewed : Worsening diffused alveolar infiltrate 12-lead ECG SR. no significant ST elevation/depression. Cardiac Echo Impressions Interpretation Summary The left ventricle is normal in size. The ejection fraction is estimated to be 55-60%. There is a noticable interventricular septal shift that varies with respiration. Paradoxical septal motion is consistent with right ventricular pressure overload. The right ventricle is moderately dilated. The right ventricular systolic function is normal (TAPSE: 3.3 cm). There is mild tricuspid regurgitation. The right ventricular systolic pressure is estimated at 58 mmHg assuming a right atrial pressure of 8 mm Hg. There is moderate pulmonary hypertension. Additional Diagnostics Abdominal U/S 04/22/17: IMPRESSION: Splenomegaly at 15 cm craniocaudad, no abnormal free fluid seen throughout the peritoneal space. Prominent fatty infiltration within the liver. Quality of visualization was somewhat limited by the combative uncooperative nature of the current clinical status of the patient. Assessment & Plan Hospital day 9 for 52yo man with distant history of hernia repair with extensive complications including bowel resection along with further repair a year ago, admitted with one week of malaise, cough, SOB, subjective fevers ans chills. Admission CXR showed diffuse reticular infiltrates, treated initially for CAP, then possible MRSA pneumonia. Progressed to respiratory failure on Sunday on 04/22/17 and was intubated by Anesthesia. 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 Non-invasive bronchial washings on 04/22/17 show 24% eosinophils. His reports that he uses daily NSAIDS for arthralgias and myalgias from his strenuous physical labor. For the past year he has worked intermittently, not completely recovered from his hernia correction. 1. Acute Hypoxemic Respiratory Failure / ARDS. Fits criteria for acute eosinophilic pneumonia. His inhalation of construction dust may play a role but his NSAIDS should also be suspected as contributing. This is not likely to be coccidiomycosis or a helminthic infection. The rapid onset and lack of extrapulmonary organ involvement makes Churg-Jane very unlikely. IV steroids started on 04/23/17. DC of Nimbex on 04/23/17. -Solumedrol 60 q6 -Weaning down FiO2 -Continue to titrate Fentanyl and Propofol -DC Ceftriaxone -Continue Linezolid and Doxycycline through 04/28/[address] Bradshaw -GI and VTE prophylaxis = Pain Evaluation: Adequate Pain Control GI Prophylaxis: Not indicated VTE Prophylaxis: Sub-Q Heparin (Unfractionated), SCDs VTE Mechanical Devices: Intermittant Pneumatic CD Resuscitation Status: CPR: Attempt Resuscitation (discussed and verified with patient) Rick Dailey DO Apr 24, 2017 09:09
[2017-04-24] MEDS ORDERED: Midazolam 5 mg/mL 10 mL Inj IV PRN (10:05)
--- NOTE | 2017-04-24 12:57 | NUR ---
NUTRITION FOLLOW UP: ASSESS: 52 YO M admitted to CCU for eosinophilic pneumonia with ARDS. Pt required intubation 04/22. Pt has been NPO X 2 days. Prior to intubation pt was eating ~50% of mealsx5 days. He has not had a BMx8 days. Received verbal per MD to start TF today. Nimbex was stopped 04/23. PMHX: hypercholesterolemia LABS: Reviewed. CO2 31, Instrumentation Fitter .48, Glu 196 MEDS: Reviewed. Propofol at ~15ml/hr providing 396kcal/day, solu-medrol, fentanyl GI: No BM noted. OGT in place. SKIN: no PU per WC CURRENT WT: 99.2 kg, BMI 33.3 kg/m2, IBW 70 kg, admit wt 91.2kg DIET: NPO X 3 days. ESTIMATED NEEDS: BMI/VENT Calories: 5297-0181 kcal/day (20-22 kcal/kg BW) Protein: 105-126 g/day (1.5-1.8 g/kg IBW) Fluids: 2500 ml/day (25 ml/kg) NUTRITION DIAGNOSIS: 1.) Inadequate oral intake related to respiratory status as evidence by vent/NPO status.---PERSISTS. NUTRITION INTERVENTION: 1.) Recommend Pulmocare starting at 10 ml/hr, once tolerance established, advance 10 ml q 6 hr to goal rate of 55 ml/hr. At goal TF will provide 1815 kcal (2211kcal w/propofol) , 75 g protein; meeting 100% calorie, 71% protein needs. 2.) Recommend adding 1 packet Prosource protein TID to provide a total of 108 g protein; meeting 100% protein needs once TF is at goal rate. 3.) Adjust goal rate based on daily propofol rate. MONITOR/EVALUATE: NPO/Vent status, TF start/josh, BM, GI, wt, POC, nutrition status. Follow per high nutrition risk guidelines.
[2017-04-24] MEDS: Norepineph 8,000 mCg/250 mL NS 8,000 MCG in IV Premix 1 EACH IV SCH (15:15)
--- NOTE | 2017-04-24 15:46 | PCM.PNMED ---
Subjective Date of Service Apr 24, 2017 Subjective Intubated and sedated. ROS and subjective not obtainable. Exam Vital Signs Vital Sign - Last Date Time Temp Pulse Resp B/P Pulse Ox O2 Delivery O2 Flow Rate FiO2 04/24/17 12:30 36.6 78 21 98/58 96 Mechanical Ventilator 40 04/21/17 08:45 60 Intake and Output 04/23/17 04/23/17 04/24/17 Cumulative From/Thru 15:00 23:00 07:00 04/16/17 11:01 - 04/24/17 06:17 Intake Total 2395 ml 2013 ml 64832 ml Output Total 950 ml 1175 ml 80796 ml Balance 1445 ml 838 ml 45207 ml Intake Oral 8450 ml IV Total 2395 ml 2013 ml 58022 ml Output Urine Total 750 ml 1100 ml 07528 ml Gastric Drainage Total 200 ml 75 ml 525 ml # Voids 2 # Bowel Movements 0 0 Exam Intubated, ET and OG tubes in place. Pupils symmetric Lungs clear Heart regular, no murmur Abdomen soft, NT No leg edema No rash IVs and Medications Medications Reviewed: Medications were reviewed in detail Lab and Diagnostics Result Diagram: 04/24/17 0435 04/24/17 0435 X-Rays, CTs and MRIs Date of Service: 04/16/17 1150 PROCEDURE: X-RAY CHEST ONE VIEW, PORTABLE ([id number]) IMPRESSION: Severe bilateral pneumonia. Dictated by: Celeste Bynum M.D. on 04/16/2017 at 12:19 Approved by: Celeste Bynum M.D. on 04/16/2017 at 12:20 Date of Service: 04/16/17 1214 PROCEDURE: CT ANGIO CHEST PULMONARY EMBOLISM ([id number]) IMPRESSION: 1. No pulmonary embolus. 2. Severe diffuse pneumonia. 3. Coronary artery disease. Dictated by: Celeste Bynum M.D. on 04/16/2017 at 12:51 Approved by: Celeste Bynum M.D. on 04/16/2017 at 12:52 Chest X-ray ( 04/22/2017) reviewed : Worsening diffused alveolar infiltrate 12-lead ECG SR. no significant ST elevation/depression. Cardiac Echo Impressions Interpretation Summary The left ventricle is normal in size. The ejection fraction is estimated to be 55-60%. There is a noticable interventricular septal shift that varies with respiration. Paradoxical septal motion is consistent with right ventricular pressure overload. The right ventricle is moderately dilated. The right ventricular systolic function is normal (TAPSE: 3.3 cm). There is mild tricuspid regurgitation. The right ventricular systolic pressure is estimated at 58 mmHg assuming a right atrial pressure of 8 mm Hg. There is moderate pulmonary hypertension. Additional Diagnostics Abdominal U/S 04/22/17: IMPRESSION: Splenomegaly at 15 cm craniocaudad, no abnormal free fluid seen throughout the peritoneal space. Prominent fatty infiltration within the liver. Quality of visualization was somewhat limited by the combative uncooperative nature of the current clinical status of the patient. Assessment & Plan 52 years old male who is generally healthy with past medical history notable for hypercholesterolemia and low testosterone presents with 2 days of ongoing and worsening generalized malaise, cough, fever, chills, and shortness of breath. 1. Acute Respiratory Failure with hypoxia, POA and stable. Continue sedation and mechanical ventilation. 2. ARDS verses pneumonia, POA and improving. Continue current ABx (linezolid and doxy). 3. Eosinophyic Pneumonia , POA and stable. 4. Probable opiate dependence, POA. 5. Nutrition, continue enbteral feedings. DVT and GI prophylaxis. = GI Prophylaxis: Not indicated VTE Prophylaxis: Sub-Q Heparin (Unfractionated), SCDs VTE Mechanical Devices: Intermittant Pneumatic CD Resuscitation Status: CPR: Attempt Resuscitation (discussed and verified with patient) Edvin Melendez MD Apr 24, 2017 15:46
[2017-04-24] MEDS: OLANZapine Zydis ODT 5 mg Tablet PO SCH (16:19)
--- NOTE | 2017-04-24 18:22 | NUR ---
Sedation/Cardiac/TF Initially this shift pt sedated with 50mcg/kg/min of propofol and 175mcg/hr fentanyl. Pt awake and alert, attempting to reach for ETT. Bolus of propofol administered, increased fentanyl gtt to 200mcg/hr; RASS -2 at this time. This RN left to evaluate other pt, while in the other room pt awoke and, per responding RN's report, pt had ETT in hand (despite soft wrist restraints). RN able to remove pt's hand from tube and increase sedation. Pt now requiring 65mcg/kg/min propofol (maximum dose by IV pump guardrails), and 225mcg/hr of Fentanyl. Dr. Nguyen ordered, this RN administered, olanzapine per OGT; PRN order written for versed IV push (not yet given, able to maintain sedation with current gtts). Attempted to wean back propofol to 60mcg/kg/min, within minutes pt was awake and pulling at restraints. MAPs remain 65 or >. Tele: SR 70s-80s, T-waves inverted. TF started at 1400, Pulmocare at 10cc/hr with 40cc H2O flushes Q4H; to increase as tolerated, 10cc Q6h with goal of 55cc/hr.
[2017-04-24] MEDS ORDERED: OLANZapine Zydis ODT 5 mg Tablet PO SCH (20:30)
[2017-04-25] VITALS (15 sets, daily range): BP systolic 106–154; BP diastolic 61–87; PULSE 74–122; RESP 18–28; O2SAT 93–97
[2017-04-25] MEDS: Chlorhexidine 0.12% 15 mL Oral Solution MUC_MEMBRM SCH ×6 (00:39→22:05)
[2017-04-25] MEDS: Propofol Inj 1,000,000 MCG in IV Premix 1 EACH IV SCH ×7 (00:39→22:06)
[2017-04-25] MEDS: Heparin 5,000 Unit/mL Inj SUBQ SCH ×3 (00:39→15:47)
[2017-04-25] MEDS: fentaNYL 2,500 mCg/250 mL 2,500 MCG in IV Premix 1 EACH IV SCH ×2 (02:13→14:49)
[2017-04-25] MEDS: MethylprednisoLONE Sodium Succinate 62.5 mg/mL 2 mL Inj IVPUSH SCH ×4 (02:14→22:05)
[2017-04-25] MEDS: Albuterol-Ipratropium 3 mL Inhalation Solution NEB SCH ×6 (04:15→23:57)
--- NOTE | 2017-04-25 04:31 | ABG ---
DateTimeAnalyzed 04:25:00 -_ pH ____7.404 - 7.350 7.450 pCO2 ___53.3__ -mmHg 35.0 45.0 pO2 109 -mmHg 69.0 116 HCO3- ___32.7__ -mmol/L 22.0 26.0 ABE ____7.0__ -mmol/L -2.0 2.0 tHb ___12.3__ -g/dL O2Hb ___96.5__ -% COHb ____0.8__ -% MetHb ____1.0__ -% sO2 ___98.3__ -% 25.0 FIO2 ___40.0__ -% PRVC 20 - PEEP ___14.0__ -cmH2O Vt __400.0__ -L Drawn By blf - Date/Time Notified____ 04:30:00 -_ Spontaneous_RR ___24.0__ -b/min Oxygen Device 1 VENTILATOR - Notified By blf - Notified Whom ZACHARY DEW RN - B 754 -mmHg tO2 ___16.8__ -Vol% Edvin test _Positive -
[2017-04-25] MEDS: Cisatracurium 200,000 mCg/100 mL NS IV SCH ×2 (04:38)
[2017-04-25] MEDS: 0.9% Sodium Chloride 1,000 ML IV SCH (04:38)
[2017-04-25 04:49] LABS: BASOPHILS % (AUTO) 0 % (0-3); EOSINOPHILS % (AUTO) 0 % (0-5); MONOCYTES % (AUTO) 3.8 % (4-12); Mean Corpuscular Hemoglobin 30.5 pg (27.0-35.0); Mean Corpuscular Volume 92.6 fL (81-100); NEUTROPHILS % (AUTO) 86.7 % (40-74); Platelet Count 316 bil/L (150-400)
--- NOTE | 2017-04-25 06:22 | NUR ---
TF slowly advanced. Pt had increasing residuals through the night, because of this TF not advanced. TF were advanced when residuals were at 50ml. Tube feeds now running at 20ml/hr. Hr sinus with rate 60-80's with inverted T waves. Dr's aware. Vent settings 40/13/20/400. Anders with adequate UOP. Sedation decreased through the night. Previous sedation was fentanyl 225 mcg, propofol at 65 mcg per previous shift settings. Pt had very little neurological response. Fentanyl at 175 mcg, Propofol down to 50 mcg, pt started to become more anxious, grabbing at tube and double stacking breaths on ventilator. Sedation increased, fentanly at 200 mcg and propfol at 60 mcg. Pt turned Q2H with no skin issues noted at this time. Complete bed bath and total linen change done. Restraints to protect lines/tubes.
[2017-04-25] MEDS ORDERED: Dextrose 10% 250 ML in IV Bag 1 EACH IV PRN (07:55)
[2017-04-25] MEDS ORDERED: Dextrose 10% 250 ML in IV Bag 1 EACH IV ONE (08:20)
--- NOTE | 2017-04-25 08:28 | PCM.PNMED ---
Subjective Date of Service Apr 25, 2017 Subjective Patient gives thumbs up to us as we tell him how things are going and examine him. Nursing reports some anxiety and pulling at his tubes, breath stacking early in the morning so sedation was increased to fentanyl 200mcg and propofol 60mcg. Exam Vital Signs Vital Sign - Last Date Time Temp Pulse Resp B/P Pulse Ox O2 Delivery O2 Flow Rate FiO2 04/25/17 08:14 36.6 82 24 114/66 96 Mechanical Ventilator 40 04/21/17 08:45 60 Intake and Output 04/24/17 04/24/17 04/25/17 Cumulative From/Thru 15:00 23:00 07:00 04/16/17 11:01 - 04/25/17 06:02 Intake Total 1974 ml 2344 ml 85216 ml Output Total 1400 ml 1400 ml 51932 ml Balance 574 ml 944 ml 22704 ml Intake Oral 8450 ml IV Total 1881 ml 2083 ml 94206 ml Tube Feeding 33 ml 141 ml 174 ml Tube Irrigant 60 ml 120 ml 180 ml Output Urine Total 1350 ml 1400 ml 83318 ml Gastric Drainage Total 50 ml 575 ml # Voids 2 # Bowel Movements 0 Exam General appearance: Sedated on the ventilator. OG tube in place. Chest is clear with good breath sounds bilaterally. Peak inspiratory pressure with a tidal volume of 400 is 38, plateau is 29. PEEP is set at 8, measured at 15. Respiratory rate 20. Tidal volume 400. Heart: Regular rhythm. Heart tones normal. Abdomen soft. Extremities: increasing edema of hands and lower legs and feet, 2+ now. IVs and Medications IV Fluids NS 80mls/hr IV Medications Reviewed: Medications were reviewed in detail Lab and Diagnostics Result Diagram: 04/25/17 0445 04/25/17 0445 X-Rays, CTs and MRIs Date of Service: 04/16/17 1150 PROCEDURE: X-RAY CHEST ONE VIEW, PORTABLE ([id number]) IMPRESSION: Severe bilateral pneumonia. Dictated by: Celeste Bynum M.D. on 04/16/2017 at 12:19 Approved by: Celeste Bynum M.D. on 04/16/2017 at 12:20 Date of Service: 04/16/17 1214 PROCEDURE: CT ANGIO CHEST PULMONARY EMBOLISM ([id number]) IMPRESSION: 1. No pulmonary embolus. 2. Severe diffuse pneumonia. 3. Coronary artery disease. Dictated by: Celeste Bynum M.D. on 04/16/2017 at 12:51 Approved by: Celeste Bynum M.D. on 04/16/2017 at 12:52 Chest X-ray ( 04/22/2017) reviewed : Worsening diffused alveolar infiltrate 12-lead ECG SR. no significant ST elevation/depression. Cardiac Echo Impressions Interpretation Summary The left ventricle is normal in size. The ejection fraction is estimated to be 55-60%. There is a noticable interventricular septal shift that varies with respiration. Paradoxical septal motion is consistent with right ventricular pressure overload. The right ventricle is moderately dilated. The right ventricular systolic function is normal (TAPSE: 3.3 cm). There is mild tricuspid regurgitation. The right ventricular systolic pressure is estimated at 58 mmHg assuming a right atrial pressure of 8 mm Hg. There is moderate pulmonary hypertension. Additional Diagnostics Abdominal U/S 04/22/17: IMPRESSION: Splenomegaly at 15 cm craniocaudad, no abnormal free fluid seen throughout the peritoneal space. Prominent fatty infiltration within the liver. Quality of visualization was somewhat limited by the combative uncooperative nature of the current clinical status of the patient. Assessment & Plan Hospital day 9 for 52yo man with distant history of hernia repair with extensive complications including bowel resection along with further repair a year ago, admitted with one week of malaise, cough, SOB, subjective fevers ans chills. Admission CXR showed diffuse reticular infiltrates, treated initially for CAP, then possible MRSA pneumonia. Progressed to respiratory failure on Sunday on 04/22/17 and was intubated by Anesthesia. 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 Non-invasive bronchial washings on 04/22/17 show 24% eosinophils. His reports that he uses daily NSAIDS for arthralgias and myalgias from his strenuous physical labor. For the past year he has worked intermittently, not completely recovered from his hernia correction. 1. Acute Hypoxemic Respiratory Failure / ARDS. Fits criteria for acute eosinophilic pneumonia. His inhalation of construction dust may play a role but his NSAIDS should also be suspected as contributing. This is not likely to be coccidiomycosis or a helminthic infection. The rapid onset and lack of extrapulmonary organ involvement makes Churg-Jane very unlikely. IV steroids started on 04/23/17. DC of Nimbex on 04/23/17. -Solumedrol 60mg IV q6h -Weaning down FiO2 and PEEP -Continue to titrate Fentanyl and Propofol -Continue Linezolid and Doxycycline through 04/28/[address] Bradshaw -GI and VTE prophylaxis 2. Volume overload with increasing edema - Patient is 15 liters positive this hospitalization. There is concern for pulmonary edema becoming a problem when the patient is extubated with lowering of intrathoracic pressure. - Lasix 40mg IV q8h started on 04/25/17 3. Hyperglycemia, not present on admission. - No history of Diabetes. Tube feeding started on 04/24/17 at 1800 - Medium dose correctional scale insulin ordered 04/25/17 at 0830 = Pain Evaluation: Adequate Pain Control GI Prophylaxis: Not indicated VTE Prophylaxis: Sub-Q Heparin (Unfractionated), SCDs VTE Mechanical Devices: Intermittant Pneumatic CD Resuscitation Status: CPR: Attempt Resuscitation (discussed and verified with patient) Rick Dailey DO Apr 25, 2017 08:28 patient) Rick Dailey DO Apr 25, 2017 08:28
[2017-04-25] MEDS: Insulin Human REGular 300 Unit/3 mL Inj SUBQ SCH ×3 (08:30→20:30)
--- NOTE | 2017-04-25 09:10 | PROG NOTE ---
[address] [address] PROGRESS NOTE PATIENT: MI REED : 1965 MR#: [id number] ADMIT: 04/16/2017 JOB ID: [id number] DATE: 04/25/2017 REASON FOR FOLLOW UP: Eosinophilic pneumonia with MRSA colonization. INTERVAL HISTORY: Overnight, the patient has improved somewhat on the ventilator; though, he has had issues with agitation. This morning, he is awake, but heavily sedated and does not follow commands or interact much due to his ongoing sedation. The nurse's report that when his sedation is less, he becomes difficult to manage on the vent. This case was discussed at the bedside with the respiratory therapy team, as well as with the primary team. PHYSICAL EXAMINATION: Reveals an intubated, sedated, gentleman. His eyes are open and he is tracking. His temperature is 36.6, pulse 82, respiratory rate is ventilator dependent at this point, blood pressure 114/66. He is on no pressors saturating 96% on 40 FIO2 and 12 of PEEP. Eyes without conjunctivitis. Oral endotracheal tube, orogastric tube in good position. Central line appears free of infection. Lungs with decreasing bilateral rales and rhonchi as compared to prior days. Cardiac: Tones regular rate and rhythm. Abdomen: Benign. LABORATORY DATA: Labs include a white count of 7300 today, 87% segs in accordance with his steroids. Creatinine is 0.51. Triglycerides 313. QuantiFERON Gold Abelino virus is still pending. Cultures notable for MRSA in two sputum samples, as well as in a nasal PCR study. Today's chest x-ray was evaluated and compared to prior films. It shows significant clearing as compared to radiographs done just today or two ago. This degree of improvement is dramatic and very impressive. IMPRESSION: This patient presented with progressive bilateral infiltrates and eventual respiratory failure requiring intubation. He has been aggressively treated for a variety of infections, but it is clear that he has some eosinophilic process based on a mini BAL that was done which showed high percentage of eosinophils and his dramatic response to steroids. Whether or not continuing linezolid and doxy makes sense is unclear, but in view of the fact we have isolated MRSA numerous times in this critically ill gentleman, I think it is prudent to continue these antibiotics for a bit longer even though we believe that this is likely an eosinophilic pneumonia type process which is apparently very responsive to steroids. RECOMMENDATIONS: 1. I would continue doxy and linezolid through April 28. 2. We await the Abelino virus and QuantiFERON Gold studies. 3. Will continue to follow this complex patient with you.
[2017-04-25] MEDS: Furosemide 10 mg/mL 4 mL Inj IVPUSH SCH ×2 (09:17→15:46)
[2017-04-25] MEDS: Doxycycline Inj 100 MG in Dextrose 5% Minibag Plus 100 ML IV SCH ×2 (09:17→22:05)
[2017-04-25] MEDS: OLANZapine Zydis ODT 5 mg Tablet PO SCH ×2 (09:18→22:06)
[2017-04-25] MEDS: Famotidine Inj 20 MG in IV Premix 1 EACH IV SCH ×2 (09:28→22:04)
--- NOTE | 2017-04-25 10:43 | NUR ---
NUTRITION FOLLOW UP: ASSESS: 52 YO M admitted to CCU for eosinophilic pneumonia with ARDS. Pt required intubation 6/. Pt has been NPO X 2 days. Prior to intubation pt was eating ~50% of mealsx5 days. He has not had a BMx8 days- RN is aware. Pt has PRN bowel meds ordered but they have not been given. Pts TF is running at 30ml/hr currently. Pt reportedly had high residuals overnight. PMHX: hypercholesterolemia LABS: Reviewed. 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 Propofol at 35ml/hr providing 924 kcal/day, solu-medrol, fentanyl GI: No BM noted. OGT in place. SKIN: no PU per WC CURRENT WT: 97.2 kg, BMI 32.6 kg/m2, IBW 70 kg, admit wt 91.2kg DIET: NPO NUTRITION SUPPORT: Pulmocare @20ml/hr ESTIMATED NEEDS: BMI/VENT Calories: 6353-9827 kcal/day (20-22 kcal/kg BW) Protein: 105-126 g/day (1.5-1.8 g/kg IBW) Fluids: 2500 ml/day (25 ml/kg) NUTRITION DIAGNOSIS: 1.) Inadequate oral intake related to respiratory status as evidence by vent/NPO status.---IMPROVING w/TF NUTRITION INTERVENTION: 1.) Due to high propofol rate and increased BG levels, will switch pt to Glucerna 1.5. Recommend start TF at 20ml/hr and advance by 10ml q 6 hrs until reach goal rate of 40ml/hr to provide 1320kcal (2244kcal w/ propofol) and 72g pro 2.) Recommend adding 1 packet Prosource protein TID to provide a total of 105 g protein; meeting 100% protein needs once TF is at goal rate. 3.) Adjust goal rate based on daily propofol rate. MONITOR/EVALUATE: NPO/Vent status, TF start/josh, BM, GI, wt, POC, nutrition status. Follow per high nutrition risk guidelines.
--- NOTE | 2017-04-25 11:51 | DRSVH ---
PROCEDURE: X-RAY CHEST ONE VIEW, PORTABLE ([id number]) INDICATIONS: pneumonia TECHNIQUE: One view of the chest was acquired. COMPARISON: [facility], CR, XR CHEST 1VW (PORTABLE), 04/23/2017, 6:13. [facility], CR, XR CHEST 1VW (PORTABLE), 04/22/2017, 21:59. [facility], CR, XR CHEST 1VW (PORT ABLE), 04/24/2017, 5:30. FINDINGS: Surgical changes and devices: Stable positioning of the ETT, nasogastric tube and right PICC. Lungs and pleura: Diffuse, widespread bilateral pulmonary interstitial and air space opacities are p resent and slightly decreased from prior examination. Mediastinum: Mediastinal contours appear normal. Heart size is normal. Bones and chest wall: No suspicious bony lesions. Overlying soft tissues appear unremarkable. IMPRESSION: 1. Stable support lines and tubes. 2. Slight decrease in edema and/or bilateral pneumonia. Dictated by: Philip Nguyen RRA Interpreted: Lorenza Payan MD on 04/25/2017 at 9:18 Approved by: Lorenza Payan M.D. on 04/25/2017 at 11:49
[2017-04-25] MEDS: Linezolid Inj 600 MG in IV Premix 1 EACH IV SCH ×2 (11:55→22:05)
[2017-04-25] MEDS: Polyethylene Glycol (PEG) 17 Gm Powder PO SCH (11:58)
--- NOTE | 2017-04-25 12:45 | PCM.PNMED ---
Subjective Date of Service Apr 25, 2017 Subjective Patient is intubated and sedated. We are also subjective not obtainable. No overnight events noted. Exam Vital Signs Vital Sign - Last Date Time Temp Pulse Resp B/P Pulse Ox O2 Delivery O2 Flow Rate FiO2 04/25/17 11:52 37.3 86 28 118/65 97 Mechanical Ventilator 40 04/21/17 08:45 60 Intake and Output 04/24/17 04/24/17 04/25/17 Cumulative From/Thru 15:00 23:00 07:00 04/16/17 11:01 - 04/25/17 06:02 Intake Total 1974 ml 2344 ml 80752 ml Output Total 1400 ml 1400 ml 45768 ml Balance 574 ml 944 ml 31020 ml Intake Oral 8450 ml IV Total 1881 ml 2083 ml 90853 ml Tube Feeding 33 ml 141 ml 174 ml Tube Irrigant 60 ml 120 ml 180 ml Output Urine Total 1350 ml 1400 ml 72909 ml Gastric Drainage Total 50 ml 575 ml # Voids 2 # Bowel Movements 0 Exam Sedated, no distress. Intubated. Anicteric sclera. Lungs are clear with normal rate and effort Heart is regular without murmur gallop or rub Abdomen soft nontender, flat Extremities are free of edema. Skin is free of rash or lesions. IVs and Medications Medications Reviewed: Medications were reviewed in detail Lab and Diagnostics Result Diagram: 04/25/1744404/25/17 044 X-Rays, CTs and MRIs Date of Service: 04/16/17 1150 PROCEDURE: X-RAY CHEST ONE VIEW, PORTABLE ([id number]) IMPRESSION: Severe bilateral pneumonia. Dictated by: Celeste Bynum M.D. on 04/16/2017 at 12:19 Approved by: Celeste Bynum M.D. on 04/16/2017 at 12:20 Date of Service: 04/16/17 1214 PROCEDURE: CT ANGIO CHEST PULMONARY EMBOLISM ([id number]) IMPRESSION: 1. No pulmonary embolus. 2. Severe diffuse pneumonia. 3. Coronary artery disease. Dictated by: Celeste Bynum M.D. on 04/16/2017 at 12:51 Approved by: Celeste Bynmu M.D. on 04/16/2017 at 12:52 Chest X-ray ( 04/22/2017) reviewed : Worsening diffused alveolar infiltrate 12-lead ECG SR. no significant ST elevation/depression. Cardiac Echo Impressions Interpretation Summary The left ventricle is normal in size. The ejection fraction is estimated to be 55-60%. There is a noticable interventricular septal shift that varies with respiration. Paradoxical septal motion is consistent with right ventricular pressure overload. The right ventricle is moderately dilated. The right ventricular systolic function is normal (TAPSE: 3.3 cm). There is mild tricuspid regurgitation. The right ventricular systolic pressure is estimated at 58 mmHg assuming a right atrial pressure of 8 mm Hg. There is moderate pulmonary hypertension. Additional Diagnostics Abdominal U/S 04/22/17: IMPRESSION: Splenomegaly at 15 cm craniocaudad, no abnormal free fluid seen throughout the peritoneal space. Prominent fatty infiltration within the liver. Quality of visualization was somewhat limited by the combative uncooperative nature of the current clinical status of the patient. Assessment & Plan 52 years old male who is generally healthy with past medical history notable for hypercholesterolemia and low testosterone presents with 2 days of ongoing and worsening generalized malaise, cough, fever, chills, and shortness of breath. 1. Acute Respiratory Failure with hypoxia, POA and stable. Continue sedation and mechanical ventilation. The patient is having his decreased from 13-12. FiO2 is still at 0.40. The patient is volume overloaded we will diurese him today and see if we can further diminish PEEP. Once we get closer to a PEEP of 8 Will try a spontaneous breathing trial by one sedation. 2. Eosinophilic pneumonia and possible bacterial pneumonia, POA and improving. Continue current ABx (linezolid and doxy) per ID and continue corticosteroids.. 3. Eosinophyic Pneumonia , POA and stable. We will continue corticosteroids. 4. Probable opiate dependence, POA. Stable. 5. Nutrition, continue enbteral feedings. DVT and GI prophylaxis. = GI Prophylaxis: Not indicated VTE Prophylaxis: Sub-Q Heparin (Unfractionated), SCDs VTE Mechanical Devices: Intermittant Pneumatic CD Resuscitation Status: CPR: Attempt Resuscitation (discussed and verified with patient) Edvin Melendez MD Apr 25, 2017 12:45
[2017-04-25] MEDS: Senna-Docusate 8.6-50 mg Tablet PO SCH ×2 (14:43→22:06)
[2017-04-25] MEDS: Norepineph 8,000 mCg/250 mL NS 8,000 MCG in IV Premix 1 EACH IV SCH (14:46)
[2017-04-25] MEDS: Sodium Chloride LOK Flush 10 mL Syringe IVFLUSH PRN (14:50)
--- NOTE | 2017-04-25 19:30 | NUR ---
Peep changes/Sedation/Progressive Mobility/Bowel regime Peep carefully reduced q1-2hr from 15 to 9. Maintaining sats. Sedation reduced by 1/4; pt able to interact, write message, follow commands. Up to bedside w/ 4 person assist for 20 min, with P.T. Laxatives-> Senna, Miralax, ducolax suppository administered. No stool as yet. Various family members @ bedside; updated frequently. Continue with POC; safety priority.
--- NOTE | 2017-04-25 22:57 | NUR ---
Respiratory: Pt would desat to 88-89% and would improve to 90-91% after suctioning, repositioning, and changing Spo2 probe. RT was notified several times 1st 2 times pt sats were back to 93-94%. last time spo2 was 87%. Peep was increased to 10 and Fio2 was increased to 45% now spo2 is 94-95%.
[2017-04-26] VITALS (17 sets, daily range): BP systolic 112–155; BP diastolic 57–97; PULSE 70–88; RESP 18–32; O2SAT 92–97
[2017-04-26] MEDS: fentaNYL 2,500 mCg/250 mL 2,500 MCG in IV Premix 1 EACH IV SCH ×2 (00:20→11:10)
[2017-04-26] MEDS: Chlorhexidine 0.12% 15 mL Oral Solution MUC_MEMBRM SCH ×6 (00:23→20:11)
[2017-04-26] MEDS: Heparin 5,000 Unit/mL Inj SUBQ SCH ×3 (00:23→17:16)
[2017-04-26] MEDS: Furosemide 10 mg/mL 4 mL Inj IVPUSH SCH ×3 (00:23→17:16)
[2017-04-26] MEDS: Propofol Inj 1,000,000 MCG in IV Premix 1 EACH IV SCH ×3 (00:47→06:17)
[2017-04-26] MEDS: Insulin Human REGular 300 Unit/3 mL Inj SUBQ SCH ×5 (02:30→20:30)
[2017-04-26] MEDS: MethylprednisoLONE Sodium Succinate 62.5 mg/mL 2 mL Inj IVPUSH SCH ×4 (03:24→20:53)
[2017-04-26] MEDS: Albuterol-Ipratropium 3 mL Inhalation Solution NEB SCH ×5 (04:44→19:59)
[2017-04-26 07:30] LABS: BASOPHILS % (AUTO) 0 % (0-3); EOSINOPHILS % (AUTO) 0 % (0-5); MONOCYTES % (AUTO) 4.3 % (4-12); Mean Corpuscular Hemoglobin 30.6 pg (27.0-35.0); Mean Corpuscular Volume 94.1 fL (81-100); NEUTROPHILS % (AUTO) 88.4 % (40-74); Platelet Count 369 bil/L (150-400)
--- NOTE | 2017-04-26 07:52 | PROG NOTE ---
[address] [address] PROGRESS NOTE PATIENT: MI REED : 1965 MR#: [id number] ADMIT: 04/16/2017 JOB ID: [id number] DATE: 04/26/2017 REASON FOR FOLLOWUP: Respiratory failure with bilateral pulmonary infiltrates. INTERVAL HISTORY: The patient has improved on the ventilator overnight, but did back-slide a little bit. During the night, they were able to get his FiO2 down to 40, and his PEEP down to 8, but he started to have borderline saturation, so he is now on 45% and 10 of PEEP with good saturations. The nurse reports that, through the night, the patient has been intermittently agitated and required a lot of sedation. There have been almost no secretions from the endotracheal tube, and the patient has been free of fever or hypotension. His urine output has been excellent. This morning, I find the patient intubated and sedated. He opens his eyes to voice or touch, but does not follow commands or interact, likely due to his heavy sedation. PHYSICAL EXAMINATION: Reveals an intubated, sedated gentleman, lying supine in the ICU. Temp 37.2, pulse 74, respiratory rate 21, blood pressure 112/57. He is saturating well on 45% and 10 of PEEP, as mentioned above. His eyes without conjunctivitis. Oral endotracheal tube, oral gastric tube in good position. Neck without notable abnormality. His lungs are notable for coarse bilateral rales diffusely, and unchanged from prior. Cardiac tones regular rate and rhythm, without murmur. Abdomen is soft, nontender. No organomegaly. Anders catheter is in place. There is no skin rash. LABORATORY DATA: Labs include a white count stable at 7300 yesterday. I do not see any repeat today. Platelet count 316,000. Creatinine 0.51. Hemoglobin A1c 5.6. No recent urinalysis. Hantavirus and QuantiFERON Gold are still pending. These are now almost a week old, in the case of the hantavirus, but still not received. Multiple sputum samples have been positive for MRSA, but without much purulence, suggesting colonization, rather than infection. RADIOGRAPHIC DATA: Yesterday's chest x-ray showed clearing, but still bilateral infiltrates. IMPRESSION: This patient is doing much better since steroids were instituted, but still not ready for extubation. Recall that his mini BAL showed a high percentage of eosinophils, and we are considering this as some form of eosinophilic pneumonia. Whether or not he could have an atypical bacterial pneumonia, or MRSA pneumonia, remains unclear, but I am inclined to doubt either one. Nonetheless, I think it is reasonable to complete a course of therapy for both of these less likely possibilities, even as we treat him primarily now for eosinophilic pneumonia. Hantavirus and TB would be extreme long shots in this circumstance, and we await those serologies to completely exclude these very unlikely possibilities. RECOMMENDATIONS: 1. Doxycycline and linezolid through April 28. 2. We await the hantavirus and QuantiFERON Gold serologies. 3. Note, that I will be out of town the next three days, returning to work on Sunday, April 30. Please do not hesitate to call or text me if there are questions.
[2017-04-26] MEDS: Senna-Docusate 8.6-50 mg Tablet PO SCH ×2 (08:30→20:10)
[2017-04-26] MEDS: Linezolid Inj 600 MG in IV Premix 1 EACH IV SCH ×2 (08:30→20:53)
--- NOTE | 2017-04-26 08:59 | DRSVH ---
PROCEDURE: X-RAY CHEST ONE VIEW, PORTABLE ([id number]) INDICATIONS: pneumonia TECHNIQUE: One view of the chest was acquired. COMPARISON: [facility], CR, XR CHEST 1VW (PORTABLE), 04/25/2017, 5:28. FINDINGS: Surgical changes and devices: Stable positioning of the ETT, nasogastric tube and right PICC. Lungs and pleura: Mild pulmonary edema persists. No pleural effusion or pneumothorax. Mediastinum: Mediastinal contours appear normal. Heart size is normal. Bones and chest wall: No suspicious bony lesions. Overlying soft tissues appear unremarkable. IMPRESSION: Stable support lines and tubes. Mild edema. Dictated by: Philip HURTA Interpreted: Mercy Chin MD on 04/26/2017 at 8:57 Transcribed by: GISELA on 04/26/2017 at 8:58 Approved by: Mercy Chin MD, PhD on 04/26/2017 at 11:26
[2017-04-26] MEDS ORDERED: Dexmedetomidine Inj 400 MCG in 0.9% Sodium Chloride 100 ML IV SCH (10:15)
--- NOTE | 2017-04-26 10:28 | NUR ---
NUTRITION FOLLOW UP: ASSESS: 52 YO M admitted to CCU for eosinophilic pneumonia with ARDS. Pt required intubation 04/22. Prior to intubation pt was eating ~50% of mealsx5 days. TF was switched to Glucerna 1.5 04/25 due to elevated BG levels and high propofol rate. Currently tolerating well at goal rate of 40ml/hr. Per RN, pt had one small BM overnight but it was not documented. He is now receiving scheduled bowel meds starting 04/25. PMHX: hypercholesterolemia LABS: Reviewed. 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 Propofol at 34ml/hr providing 897 kcal/day, solu-medrol, fentanyl, senna, dulcolax, miralax, lasix GI: BMx1 per RN 04/25 SKIN: no PU per WC CURRENT WT: 94.1 kg, BMI 31.5 kg/m2, IBW 70 kg, admit wt 91.2kg DIET: NPO NUTRITION SUPPORT: Glucerna 1.5 @ 40ml/hr + 1 packet prosource TID ESTIMATED NEEDS: BMI/VENT Calories: 4708-4456 kcal/day (20-22 kcal/kg BW) Protein: 105-126 g/day (1.5-1.8 g/kg IBW) Fluids: 2500 ml/day (25 ml/kg) NUTRITION DIAGNOSIS: 1.) Inadequate oral intake related to respiratory status as evidence by vent/NPO status.---IMPROVING w/TF NUTRITION INTERVENTION: 1.) Continue Glucerna 1.5 at goal rate of 40ml/hr to provide 1320kcal (2217kcal w/ propofol) and 72g pro 2.) Continue 1 packet Prosource protein TID to provide a total of 105 g protein; meeting 100% protein needs once TF is at goal rate. 3.) Adjust goal rate based on daily propofol rate. 4.) Continue scheduled bowel meds MONITOR/EVALUATE: NPO/Vent status, TF josh, BM, GI, wt, POC, nutrition status. Follow per high nutrition risk guidelines.
--- NOTE | 2017-04-26 10:58 | PCM.PNMED ---
Subjective Date of Service Apr 26, 2017 Subjective He got patients doing relatively well. He still continues to require 40% and FiO2 with PEEP of 10. Did some desaturations with a PEEP wean trial last night. He is less sedated. There is a concern with his triglycerides increasing on propofol and he will be switched over to Precedex today. He is still on a fair amount of fentanyl. Patient's intubated, therefore subjective and review of systems are not obtainable No other notable overnight events. Exam Vital Signs Vital Sign - Last Date Time Temp Pulse Resp B/P Pulse Ox O2 Delivery O2 Flow Rate FiO2 04/26/17 08:23 74 112/57 95 40 04/26/17 07:54 Ventilator 04/26/17 07:52 37.3 26 04/21/17 08:45 60 Intake and Output 04/25/17 04/25/17 04/26/17 Cumulative From/Thru 15:00 23:00 07:00 04/16/17 11:01 - 04/26/17 05:32 Intake Total 1808 ml 2012 ml 68772 ml Output Total 3880 ml 2525 ml 26049 ml Balance -2072 ml -513 ml 90406 ml Intake Oral 8450 ml IV Total 1459 ml 1330 ml 04759 ml Tube Feeding 229 ml 502 ml 905 ml Tube Irrigant 120 ml 180 ml 480 ml Output Urine Total 3800 ml 2525 ml 40392 ml Gastric Drainage Total 80 ml 655 ml # Voids 2 # Bowel Movements 0 0 Exam Alert easily arousable. He tracks. PT and OT tube in place. Anicteric sclera. Lungs are clear with normal rate and effort Heart is regular without murmur gallop or rub Abdomen soft nontender, flat Extremities are free of edema. Skin is free of rash or lesions. Her nephew is moving all extremities spontaneously. IVs and Medications Medications Reviewed: Medications were reviewed in detail Lab and Diagnostics Result Diagram: 04/26/1761404/26/17 06 X-Rays, CTs and MRIs Date of Service: 04/16/17 1150 PROCEDURE: X-RAY CHEST ONE VIEW, PORTABLE ([id number]) IMPRESSION: Severe bilateral pneumonia. Dictated by: Celeste Bynum M.D. on 04/16/2017 at 12:19 Approved by: Celeste Bynum M.D. on 04/16/2017 at 12:20 Date of Service: 04/16/17 1214 PROCEDURE: CT ANGIO CHEST PULMONARY EMBOLISM ([id number]) IMPRESSION: 1. No pulmonary embolus. 2. Severe diffuse pneumonia. 3. Coronary artery disease. Dictated by: Celeste Bynum M.D. on 04/16/2017 at 12:51 Approved by: Celeste Bynum M.D. on 04/16/2017 at 12:52 Chest X-ray ( 04/22/2017) reviewed : Worsening diffused alveolar infiltrate 12-lead ECG SR. no significant ST elevation/depression. Cardiac Echo Impressions Interpretation Summary The left ventricle is normal in size. The ejection fraction is estimated to be 55-60%. There is a noticable interventricular septal shift that varies with respiration. Paradoxical septal motion is consistent with right ventricular pressure overload. The right ventricle is moderately dilated. The right ventricular systolic function is normal (TAPSE: 3.3 cm). There is mild tricuspid regurgitation. The right ventricular systolic pressure is estimated at 58 mmHg assuming a right atrial pressure of 8 mm Hg. There is moderate pulmonary hypertension. Additional Diagnostics Abdominal U/S 04/22/17: IMPRESSION: Splenomegaly at 15 cm craniocaudad, no abnormal free fluid seen throughout the peritoneal space. Prominent fatty infiltration within the liver. Quality of visualization was somewhat limited by the combative uncooperative nature of the current clinical status of the patient. Assessment & Plan 52 years old male who is generally healthy with past medical history notable for hypercholesterolemia and low testosterone presents with 2 days of ongoing and worsening generalized malaise, cough, fever, chills, and shortness of breath. 1. Acute Respiratory Failure with hypoxia, POA and stable, slowly improving.. Continue sedation and mechanical ventilation. The patient is having his decreased from 13-12. FiO2 is still at 0.40. The patient is volume overloaded we will diurese him today and see if we can further diminish PEEP. Once we get closer to a PEEP of 8. Plan is to continue to try to wean his PEEP and FiO2. The patient will have his propofol switched to Precedex today. 2. Eosinophilic pneumonia and possible bacterial pneumonia, POA and improving. Discussed corticosteroids with pulmonary we will decrease his dose to every 12 hours starting today. ID recommends antibiotics to continue for possible pneumonia component. 3. Eosinophyic Pneumonia , POA and stable. We will continue corticosteroids, dose decreased as above.. 4. Probable opiate dependence, POA. Stable. 5. Nutrition, continue enbteral feedings. DVT and GI prophylaxis. = GI Prophylaxis: Not indicated VTE Prophylaxis: Sub-Q Heparin (Unfractionated), SCDs VTE Mechanical Devices: Intermittant Pneumatic CD Resuscitation Status: CPR: Attempt Resuscitation (discussed and verified with patient) Edvin Melendez MD Apr 26, 2017 10:58
--- NOTE | 2017-04-26 13:00 | NUR ---
Change to Precedex beneficial Propofol dc'd; Fentanyl gtt down to 50mcg/hr (from 250mcg on grey washer). RASS zero; pt A&O, calm, cooperative. Communicating well via writing board. Rhythm stable sinus; no ectopy or bradycardia during initiation of Precedex. BP 112-130/60-70s.
[2017-04-26] MEDS ORDERED: 0.9% Sodium Chloride 250 ML ONE (14:21)
--- NOTE | 2017-04-26 14:37 | PCM.PNMED ---
Subjective Date of Service Apr 26, 2017 Subjective Patient is awake at times today, communicating with the whiteboard, asking to see his xray, telling us about the feeling of choking with the ET tube. Nursing reports a small bowel movement. Good UOP overnight. Exam Vital Signs Vital Sign - Last Date Time Temp Pulse Resp B/P Pulse Ox O2 Delivery O2 Flow Rate FiO2 04/26/17 12:36 73 128/68 93 40 04/26/17 07:54 Ventilator 04/26/17 07:52 37.3 26 04/21/17 08:45 60 Intake and Output 04/25/17 04/25/17 04/26/17 Cumulative From/Thru 15:00 23:00 07:00 04/16/17 11:01 - 04/26/17 05:32 Intake Total 1808 ml 2012 ml 04778 ml Output Total 3880 ml 2525 ml 24774 ml Balance -2072 ml -513 ml 49188 ml Intake Oral 8450 ml IV Total 1459 ml 1330 ml 25033 ml Tube Feeding 229 ml 502 ml 905 ml Tube Irrigant 120 ml 180 ml 480 ml Output Urine Total 3800 ml 2525 ml 30508 ml Gastric Drainage Total 80 ml 655 ml # Voids 2 # Bowel Movements 0 0 Exam General appearance: Sedated on the ventilator, awake at times during the day, not agitated. OG tube in place. Chest is clear with good breath sounds bilaterally. PEEP is set at 8, measured at 15. Respiratory rate 20. Heart: Regular rhythm. Heart tones normal. Abdomen soft. Extremities: slight improvement of edema of hands and lower legs and feet. IVs and Medications IV Fluids discontinued Medications Reviewed: Medications were reviewed in detail Lab and Diagnostics Result Diagram: 04/26/1761404/26/1715 X-Rays, CTs and MRIs Date of Service: 04/16/17 1150 PROCEDURE: X-RAY CHEST ONE VIEW, PORTABLE ([id number]) IMPRESSION: Severe bilateral pneumonia. Date of Service: 04/26/17 0721 PROCEDURE: X-RAY CHEST ONE VIEW, PORTABLE ([id number]) FINDINGS: Surgical changes and devices: Stable positioning of the ETT, nasogastric tube and right PICC. Lungs and pleura: Mild pulmonary edema persists. No pleural effusion or pneumothorax. Mediastinum: Mediastinal contours appear normal. Heart size is normal. Bones and chest wall: No suspicious bony lesions. Overlying soft tissues appear unremarkable. IMPRESSION: Stable support lines and tubes. Mild edema. Date of Service: 04/16/17 1214 PROCEDURE: CT ANGIO CHEST PULMONARY EMBOLISM ([id number]) IMPRESSION: 1. No pulmonary embolus. 2. Severe diffuse pneumonia. 3. Coronary artery disease. Dictated by: Celeste Bynum M.D. on 04/16/2017 at 12:51 Approved by: Celeste Bynum M.D. on 04/16/2017 at 12:52 Chest X-ray ( 04/22/2017) reviewed : Worsening diffused alveolar infiltrate 12-lead ECG SR. no significant ST elevation/depression. Cardiac Echo Impressions Interpretation Summary The left ventricle is normal in size. The ejection fraction is estimated to be 55-60%. There is a noticable interventricular septal shift that varies with respiration. Paradoxical septal motion is consistent with right ventricular pressure overload. The right ventricle is moderately dilated. The right ventricular systolic function is normal (TAPSE: 3.3 cm). There is mild tricuspid regurgitation. The right ventricular systolic pressure is estimated at 58 mmHg assuming a right atrial pressure of 8 mm Hg. There is moderate pulmonary hypertension. Additional Diagnostics Abdominal U/S 04/22/17: IMPRESSION: Splenomegaly at 15 cm craniocaudad, no abnormal free fluid seen throughout the peritoneal space. Prominent fatty infiltration within the liver. Quality of visualization was somewhat limited by the combative uncooperative nature of the current clinical status of the patient. Assessment & Plan 52 years old male who is generally healthy with past medical history notable for hypercholesterolemia and low testosterone presented with 2 days of ongoing and worsening generalized malaise, cough, fever, chills, and shortness of breath. Acute Respiratory Failure with hypoxia, POA and stable, slowly improving. Acute eosinophilic pneumonia based on bronch wash showing 24% eosinophils. - The patient is having a trail of spontaneous breathing today with PEEP down to 8, satting at 94%. FiO2 is still at 0.40. - The patient will have his propofol switched to Precedex today. - Olanzapine increased to 10mg PO Q12h Volume Overload, not POA, improving - At peak pt was overloaded by 15 liters - IVF stopped yesterday - Lasix 40mg IV q8h x 3 doses yesterday - repeat same dose of Lasix today Hypertriglyceridemia, not POA, attributed to Propofol - As above propofol discontinued - Precedex started Nutrition, continue enteral feedings. DVT and GI prophylaxis. = Pain Evaluation: Adequate Pain Control GI Prophylaxis: Not indicated VTE Prophylaxis: Sub-Q Heparin (Unfractionated), SCDs VTE Mechanical Devices: Intermittant Pneumatic CD Resuscitation Status: CPR: Attempt Resuscitation (discussed and verified with patient) Rick Dailey DO Apr 26, 2017 14:37 Albert Nguyen MD Apr 27, 2017 08:15 Resuscitation Status: CPR: Attempt Resuscitation (discussed and verified with patient) Rick Dailey DO Apr 26, 2017 14:37
[2017-04-26] MEDS: Norepineph 8,000 mCg/250 mL NS 8,000 MCG in IV Premix 1 EACH IV SCH (15:15)
[2017-04-26] MEDS: Famotidine Inj 20 MG in IV Premix 1 EACH IV SCH ×2 (17:02→20:10)
[2017-04-26] MEDS: Doxycycline Inj 100 MG in Dextrose 5% Minibag Plus 100 ML IV SCH ×2 (17:03→17:15)
[2017-04-26] MEDS: Polyethylene Glycol (PEG) 17 Gm Powder PO SCH (17:07)
--- NOTE | 2017-04-26 18:06 | NUR ---
Ongoing SBT since 1350; peep down to 7, PS>peep titrated down to 6.
[2017-04-26] MEDS: Dexmedetomidine 400 mCg/100 mL 400 MCG in IV Premix 1 EACH IV SCH (19:17)
[2017-04-26] MEDS: OLANZapine Zydis ODT 5 mg Tablet PO SCH (20:10)
--- NOTE | 2017-04-26 22:56 | NUR ---
Vent, Sedation, Restraints Vs as noted. Continues ventilated with sats mid 90s on 40% fio2 without desaturations. Precedex 0.4mcg/kg/h and Fentanyl 100mcg/h unchanged. Pt awake and interactive appropriately. Writes needs and questions on dry erase board. Denies pain or discomfort. Refused bathing or igor care by RN. Igor care/bath provided spouse per pt request. Restraints remain off. Refuses repositioning and but is able to adjust independently.
[2017-04-27] VITALS (14 sets, daily range): BP systolic 113–125; BP diastolic 60–73; PULSE 60–87; RESP 16–23; O2SAT 94–96
[2017-04-27] MEDS: Furosemide 10 mg/mL 4 mL Inj IVPUSH SCH (00:09)
[2017-04-27] MEDS: Chlorhexidine 0.12% 15 mL Oral Solution MUC_MEMBRM SCH ×3 (00:09→07:41)
[2017-04-27] MEDS: Heparin 5,000 Unit/mL Inj SUBQ SCH ×3 (00:09→17:09)
[2017-04-27] MEDS: Albuterol-Ipratropium 3 mL Inhalation Solution NEB SCH ×7 (00:29→19:13)
[2017-04-27] MEDS: MethylprednisoLONE Sodium Succinate 62.5 mg/mL 2 mL Inj IVPUSH SCH ×4 (02:57→22:11)
[2017-04-27] MEDS: Insulin Human REGular 300 Unit/3 mL Inj SUBQ SCH ×4 (03:00→20:30)
[2017-04-27 03:52] LABS: BASOPHILS % (AUTO) 0 % (0-3); EOSINOPHILS % (AUTO) 0 % (0-5); MONOCYTES % (AUTO) 6.2 % (4-12); Mean Corpuscular Hemoglobin 29.8 pg (27.0-35.0); Mean Corpuscular Volume 93.1 fL (81-100); NEUTROPHILS % (AUTO) 85.2 % (40-74); Platelet Count 406 bil/L (150-400)
[2017-04-27] MEDS: Dexmedetomidine 400 mCg/100 mL 400 MCG in IV Premix 1 EACH IV SCH (07:40)
--- NOTE | 2017-04-27 07:45 | PCM.PNMED ---
Subjective Date of Service Apr 27, 2017 Subjective Awake, Alert, Follows commands No critical events over noc. On PCV all noc with SpO2 97% on 0.4 Appears comfortable on SBT now with / Exam Vital Signs Vital Sign - Last Date Time Temp Pulse Resp B/P Pulse Ox O2 Delivery O2 Flow Rate FiO2 04/27/17 04:07 61 123/66 95 40 04/27/17 04:00 16 04/27/17 04:00 Ventilator 04/27/17 00:00 37.1 04/21/17 08:45 60 Intake and Output 04/26/17 04/26/17 04/27/17 Cumulative From/Thru 15:00 23:00 07:00 04/16/17 11:01 - 04/27/17 05:45 Intake Total 1498 ml 1233 ml 58424 ml Output Total 3200 ml 2450 ml 47713 ml Balance -1702 ml -1217 ml 9523 ml Intake Oral 8450 ml IV Total 982 ml 657 ml 66789 ml Tube Feeding 396 ml 456 ml 1757 ml Tube Irrigant 120 ml 120 ml 720 ml Output Urine Total 3200 ml 2450 ml 81679 ml Gastric Drainage Total 655 ml # Voids 2 # Bowel Movements 1 1 Exam WDWN man in NAD, orally intubated Lungs Faint rales on Rt. o/w CTA CV RRR, no m/g/r Abd Soft, normal BTs, no HSM, nontender Ext No edema, warm, pulses 1+ both radials Neuro Moves all 4 , face symmetric, gaze conjugate, Lab and Diagnostics Result Diagram: 04/27/17 0335 04/27/17 0335 X-Rays, CTs and MRIs Date of Service: 04/16/17 1150 PROCEDURE: X-RAY CHEST ONE VIEW, PORTABLE ([id number]) IMPRESSION: Severe bilateral pneumonia. Date of Service: 04/26/17 0721 PROCEDURE: X-RAY CHEST ONE VIEW, PORTABLE ([id number]) FINDINGS: Surgical changes and devices: Stable positioning of the ETT, nasogastric tube and right PICC. Lungs and pleura: Mild pulmonary edema persists. No pleural effusion or pneumothorax. Mediastinum: Mediastinal contours appear normal. Heart size is normal. Bones and chest wall: No suspicious bony lesions. Overlying soft tissues appear unremarkable. IMPRESSION: Stable support lines and tubes. Mild edema. Date of Service: 04/16/17 1214 PROCEDURE: CT ANGIO CHEST PULMONARY EMBOLISM ([id number]) IMPRESSION: 1. No pulmonary embolus. 2. Severe diffuse pneumonia. 3. Coronary artery disease. Dictated by: Celeste Bynum M.D. on 04/16/2017 at 12:51 Approved by: Celeste Bynum M.D. on 04/16/2017 at 12:52 Chest X-ray ( 04/22/2017) reviewed : Worsening diffused alveolar infiltrate 12-lead ECG SR. no significant ST elevation/depression. Cardiac Echo Impressions Interpretation Summary The left ventricle is normal in size. The ejection fraction is estimated to be 55-60%. There is a noticable interventricular septal shift that varies with respiration. Paradoxical septal motion is consistent with right ventricular pressure overload. The right ventricle is moderately dilated. The right ventricular systolic function is normal (TAPSE: 3.3 cm). There is mild tricuspid regurgitation. The right ventricular systolic pressure is estimated at 58 mmHg assuming a right atrial pressure of 8 mm Hg. There is moderate pulmonary hypertension. Additional Diagnostics Abdominal U/S 04/22/17: IMPRESSION: Splenomegaly at 15 cm craniocaudad, no abnormal free fluid seen throughout the peritoneal space. Prominent fatty infiltration within the liver. Quality of visualization was somewhat limited by the combative uncooperative nature of the current clinical status of the patient. Assessment & Plan Previously healthy middle aged man admitted with one week of malaise, cough, SOB , subjective fevers ans chills. Admission CXR showed diffuse reticular infiltrates. Progressed to respiratory failure on Sunday, 04/22 and was intubated by Anesthesia. 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 MRSA PCR+ and MRSA on ET aspirate Non-invasive bronchial washings show 24% eosinophils. His reports that he uses daily NSAIDS for arthralgias and myalgias from his strenuous physical labor. IMP 1 Acute Hypoxemic Respiratory Failure / ARDS. Fits criteria for acute eosinophilic pneumonia. His inhalation of construction dust may play a role but his NSAIDS should also be suspected as contributing. Doubt very much this is coccidiomycosis or a helminthic infection. The rapid onset and lack of extrapulmonary organ involvement makes Churg-Jane very unlikely. He has had steady radiographic and clinical improvement on steroids which were decreased yesterday. Would favor stopping his antibiotics PLAN Solumedrol 60 q12 SBT, Extubate if he does well DC Abx GI and VTE prophylaxis Hold TFs = GI Prophylaxis: Not indicated VTE Prophylaxis: Sub-Q Heparin (Unfractionated), SCDs VTE Mechanical Devices: Intermittant Pneumatic CD Resuscitation Status: CPR: Attempt Resuscitation (discussed and verified with patient) Albert Nguyen MD Apr 27, 2017 07:45
[2017-04-27] MEDS: Polyethylene Glycol (PEG) 17 Gm Powder PO SCH (07:53)
[2017-04-27] MEDS: OLANZapine Zydis ODT 5 mg Tablet PO SCH (07:55)
[2017-04-27] MEDS: Senna-Docusate 8.6-50 mg Tablet PO SCH ×2 (07:58→20:30)
[2017-04-27] MEDS: Famotidine Inj 20 MG in IV Premix 1 EACH IV SCH ×2 (07:59→21:21)
[2017-04-27] MEDS: Linezolid Inj 600 MG in IV Premix 1 EACH IV SCH ×2 (08:19→22:03)
[2017-04-27] MEDS: Doxycycline Inj 100 MG in Dextrose 5% Minibag Plus 100 ML IV SCH (08:21)
--- NOTE | 2017-04-27 08:45 | NUR ---
Respiratory Pt extubated @ 0810. Dr. Nguyen ordered extubation from PS with Cpap. Pt placed on 4LNC, did not meet O2 needs, sat 88%. Placed Pt on 8 Loxy mask for sats in low 90's. Pt has thick clear sputum that he can clear with cough. Pt breathing rapidly, mid 20's, regular and shallow.
--- NOTE | 2017-04-27 11:37 | PCM.PNMED ---
Subjective Date of Service Apr 27, 2017 Subjective Patient is doing well after extubation. Noted is comfortable on oxygen. No chest pain. No abdominal pain. No overnight events Exam Vital Signs Vital Sign - Last Date Time Temp Pulse Resp B/P Pulse Ox O2 Delivery O2 Flow Rate FiO2 04/27/17 07:48 66 117/67 96 40 04/27/17 07:33 36.8 18 Mechanical Ventilator 04/21/17 08:45 60 Intake and Output 04/26/17 04/26/17 04/27/17 Cumulative From/Thru 15:00 23:00 07:00 04/16/17 11:01 - 04/27/17 05:45 Intake Total 1498 ml 1233 ml 57078 ml Output Total 3200 ml 2450 ml 10803 ml Balance -1702 ml -1217 ml 9523 ml Intake Oral 8450 ml IV Total 982 ml 657 ml 86714 ml Tube Feeding 396 ml 456 ml 1757 ml Tube Irrigant 120 ml 120 ml 720 ml Output Urine Total 3200 ml 2450 ml 51384 ml Gastric Drainage Total 655 ml # Voids 2 # Bowel Movements 1 1 Exam Alert and oriented -3, no distress. Fluent speech, on oxygen mask Anicteric sclera. Lungs are clear with normal rate and effort Heart is regular without murmur gallop or rub Abdomen soft nontender, flat Extremities are free of edema. Skin is free of rash or lesions. IVs and Medications Medications Reviewed: Medications were reviewed in detail Lab and Diagnostics Result Diagram: 04/27/17 0335 04/27/17 0335 X-Rays, CTs and MRIs Date of Service: 04/16/17 1150 PROCEDURE: X-RAY CHEST ONE VIEW, PORTABLE ([id number]) IMPRESSION: Severe bilateral pneumonia. Date of Service: 04/26/17 0721 PROCEDURE: X-RAY CHEST ONE VIEW, PORTABLE ([id number]) FINDINGS: Surgical changes and devices: Stable positioning of the ETT, nasogastric tube and right PICC. Lungs and pleura: Mild pulmonary edema persists. No pleural effusion or pneumothorax. Mediastinum: Mediastinal contours appear normal. Heart size is normal. Bones and chest wall: No suspicious bony lesions. Overlying soft tissues appear unremarkable. IMPRESSION: Stable support lines and tubes. Mild edema. Date of Service: 04/16/17 1214 PROCEDURE: CT ANGIO CHEST PULMONARY EMBOLISM ([id number]) IMPRESSION: 1. No pulmonary embolus. 2. Severe diffuse pneumonia. 3. Coronary artery disease. Dictated by: Celeste Bynum M.D. on 04/16/2017 at 12:51 Approved by: Celeste Bynum M.D. on 04/16/2017 at 12:52 Chest X-ray ( 04/22/2017) reviewed : Worsening diffused alveolar infiltrate 12-lead ECG SR. no significant ST elevation/depression. Cardiac Echo Impressions Interpretation Summary The left ventricle is normal in size. The ejection fraction is estimated to be 55-60%. There is a noticable interventricular septal shift that varies with respiration. Paradoxical septal motion is consistent with right ventricular pressure overload. The right ventricle is moderately dilated. The right ventricular systolic function is normal (TAPSE: 3.3 cm). There is mild tricuspid regurgitation. The right ventricular systolic pressure is estimated at 58 mmHg assuming a right atrial pressure of 8 mm Hg. There is moderate pulmonary hypertension. Additional Diagnostics Abdominal U/S 04/22/17: IMPRESSION: Splenomegaly at 15 cm craniocaudad, no abnormal free fluid seen throughout the peritoneal space. Prominent fatty infiltration within the liver. Quality of visualization was somewhat limited by the combative uncooperative nature of the current clinical status of the patient. Assessment & Plan 52 years old male who is generally healthy with past medical history notable for hypercholesterolemia and low testosterone presented with 2 days of ongoing and worsening generalized malaise, cough, fever, chills, and shortness of breath. 1. Acute Respiratory Failure with hypoxia, POA and stable, improved. The patient is now on oxygen mask. We will follow him closely. 2. Eosinophilic pneumonia and possible bacterial pneumonia, POA and improving. We will continue a slow taper of steroids. Anticipate a 4-6 week course of steroids in total. Antibiotics will be continued until April 28. 3. Probable opiate dependence, POA. Stable. 4. Nutrition, transition to oral intake. DVT and GI prophylaxis. For today and then stop GI prophylaxis tomorrow. = GI Prophylaxis: Not indicated VTE Prophylaxis: Sub-Q Heparin (Unfractionated), SCDs VTE Mechanical Devices: Intermittant Pneumatic CD Resuscitation Status: CPR: Attempt Resuscitation (discussed and verified with patient) Edvin Melendez MD Apr 27, 2017 11:37
--- NOTE | 2017-04-27 12:57 | DRSVH ---
PROCEDURE: X-RAY CHEST ONE VIEW, PORTABLE ([id number]) INDICATIONS: pneumonia TECHNIQUE: One view of the chest was acquired. COMPARISON: [facility], CR, XR CHEST 1VW (PORTABLE), 04/22/2017, 21:59. [facility], CR, XR CHEST 1VW (PORTABLE), 04/26/2017, 7:34. FINDINGS: Surgical changes and devices: Stable positioning of the ETT, nasogastric tube and right PICC. Lungs and pleura: Mild pulmonary edema persists. No pleural effusion or pneumothorax. Mediastinum: Mediastinal contours appear normal. Heart size is normal. Bones and chest wall: No suspicious bony lesions. Overlying soft tissues appear unremarkable. IMPRESSION: 1. Stable support lines and tubes. 2. Persistent mild edema. Dictated by: Philip Nguyen [facility] Interpreted: Solomon Ellsworth MD on 04/27/2017 at 10:02 Approved by: Solomon Ellsworth M.D. on 04/27/2017 at 12:55
--- NOTE | 2017-04-27 14:03 | NUR ---
NUTRITION FOLLOW UP: ASSESS: 52 YO M admitted to CCU with eosinophilic pneumonia with ARDS. Pt required intubation 04/22. Prior to intubation pt was eating ~50% of meals x 5 days. Enteral formula changed to Glucerna 1.5 (04/25) due to elevated BG levels and high propofol rate and running at goal rate prior to successful extubation this morning. Diet not yet advanced; Speech Therapy not available today. PMHX: Hypercholesterolemia. LABS: Reviewed. Chloride 95, CO2 38, BUN 33, Cr 0.65, Glu 190, A1c 5.6. MEDS: Reviewed. Solu-medrol, senna, dulcolax, miralax, lasix, insulin. GI: Small BM (04/26). SKIN: No PU per WC. WT: 94.1 kg, BMI 31.5 kg/m2, IBW 70 kg, admit wt 91.2kg DIET: NPO NUTRITION SUPPORT DISCONTINUED: Glucerna 1.5 @ 40ml/hr + 1 packet prosource TID. ESTIMATED NEEDS: BMI Calories: 6036-4706 kcal/day (20-22 kcal/kg BW) Protein: 105-126 g/day (1.5-1.8 g/kg IBW) Fluids: 2500 ml/day (25 ml/kg) NUTRITION DIAGNOSIS: 1) Inadequate oral intake related to respiratory status as evidence by NPO status post extubation - PERSISTS. NUTRITION INTERVENTION: 1) Will await diet advance / tolerance for further recommendations. MONITOR/EVALUATE: NPO status, GI status, wt, POC, nutrition status. Follow per high nutrition risk guidelines.
[2017-04-27] MEDS: Norepineph 8,000 mCg/250 mL NS 8,000 MCG in IV Premix 1 EACH IV SCH (15:15)
--- NOTE | 2017-04-27 16:43 | NUR ---
Social Work: Continued Discharge Planning D: Per EMR review, pt is on day 11 of stay, pt required intubation on 04/22. Pt was extubated today. ST evaluation is still pending on pt at this time. PT was able to see the pt. Pt was able to ambulate 200 feet CGA; current recommendation is for home health however pt may progress and may be able to complete outpatient PT at time of discharge. MOTORCYCLE RACER will discuss this with MD at multidisciplinary rounds. A: Pt who is I at baseline and lives at home with family. P: Evolving; Pt anticipated to discharge home. MOTORCYCLE RACER to discuss HH recommendation with MD and assist with discharge planning if ordered by MD. MOTORCYCLE RACER to continue to follow. MALACHI Coats
--- NOTE | 2017-04-27 18:43 | NUR ---
Tolerated PST well this morning with spontaneous tidal volumes 550-675. Extubated at 0810 to 4L NC with saturations 86-92% at rest. Oxymask 8L used for about 3 hours with sats mid to upper 90's followed by titration back to nasal cannula. Mild desaturations continue with activity, recovers with rest or short term increase in O2 to cover activity. VSS, afebrile, medications de-escalated by MD to reflect extubation. Speech initially hoarse, but clears to easily understandable and clear. Trialed ice chips without evidence aspiration. MD updated, order rec'd to increase diet to full liquids with pt eager to try, tolerates well. Anders discontinued. Pt passing large unformed stools, scheduled bowel regimen discontinued. Care explained as given, questions answered. Demetrius at bedside much of day, supportive and participates in care.
[2017-04-27] MEDS ORDERED: 0.9% Sodium Chloride 100 ML ONE (21:09)
[2017-04-28] VITALS (10 sets, daily range): BP systolic 103–111; BP diastolic 62–69; PULSE 67–85; RESP 19–28; O2SAT 91–96
[2017-04-28] MEDS: Heparin 5,000 Unit/mL Inj SUBQ SCH ×3 (01:20→18:00)
[2017-04-28] MEDS: Insulin Human REGular 300 Unit/3 mL Inj SUBQ SCH ×4 (02:30→20:30)
[2017-04-28 05:23] LABS: BASOPHILS % (AUTO) 0.1 % (0-3); EOSINOPHILS % (AUTO) 0 % (0-5); MONOCYTES % (AUTO) 5.2 % (4-12); Mean Corpuscular Hemoglobin 30.3 pg (27.0-35.0); NEUTROPHILS % (AUTO) 82.6 % (40-74); Platelet Count 391 bil/L (150-400)
[2017-04-28] MEDS: Albuterol-Ipratropium 3 mL Inhalation Solution NEB SCH ×4 (07:21→20:30)
--- NOTE | 2017-04-28 07:34 | NUR ---
Restful night/O2 Pt denied any pain overnight. Vitals stable, pt continues on 4L O2, sats monitored on [employer]. Pt asked to used oxymask while asleep but otherwise used NC prior to bed. Pt voiding post allen removal.
--- NOTE | 2017-04-28 07:48 | DRSVH ---
PROCEDURE: X-RAY CHEST ONE VIEW, PORTABLE ([id number]) INDICATIONS: pneumonia TECHNIQUE: One view of the chest was acquired. COMPARISON: [facility], CR, XR CHEST 1VW (PORTABLE), 04/26/2017, 7:34. [facility], CR, XR CHEST 1VW (PORTABLE), 04/27/2017, 5:20. FINDINGS: Surgical changes and devices: court monitor leads are seen over the chest. Lungs and pleura: No pleural effusions or pneumothorax. Moderate depth of inspiration. No focal cons olidation is seen. Persistent crowded markings but compared to previous recent days perhaps minimally improved Mediastinum: Mediastinal contours appear normal. Heart size is normal. Bones and chest wall: No suspicious bony lesions. Overlying soft tissues appear unremarkable. IMPRESSION: Lung markings probably minimally improved from either failure or ARDS. Dictated by: Miguel Valenzuela M.D. on 04/28/2017 at 7:45 Approved by: Miguel Valenzuela M.D. on 04/28/2017 at 7:46
[2017-04-28] MEDS ORDERED: 0.9% Sodium Chloride 250 ML ONE (07:49)
[2017-04-28] MEDS: Senna-Docusate 8.6-50 mg Tablet PO SCH (08:30)
[2017-04-28] MEDS: Polyethylene Glycol (PEG) 17 Gm Powder PO SCH (08:30)
--- NOTE | 2017-04-28 09:35 | PCM.PNMED ---
Subjective Date of Service Apr 28, 2017 Subjective Awake, Alert, Good spirits No new complaints Cough slightly productive of small amounts white mucus No fever, chills, seats Exam Vital Signs Vital Sign - Last Date Time Temp Pulse Resp B/P Pulse Ox O2 Delivery O2 Flow Rate FiO2 04/28/17 08:12 36.3 71 28 103/69 92 OxyMask 3.50 04/27/17 08:00 40 Intake and Output 04/27/17 04/27/17 04/28/17 Cumulative From/Thru 15:00 23:00 07:00 04/16/17 11:01 - 04/28/17 06:13 Intake Total 592 ml 240 ml 15575 ml Output Total 1275 ml 725 ml 21270 ml Balance -683 ml -485 ml 8355 ml Intake Oral 240 ml 8690 ml IV Total 592 ml 47480 ml Tube Feeding 1757 ml Tube Irrigant 720 ml Output Urine Total 1275 ml 725 ml 12147 ml Gastric Drainage Total 655 ml # Voids 2 # Bowel Movements 2 1 4 Exam WDWN man in NAD Afeb SpO2 89-92% on 3L/min NC Lungs Decreased BS, no wheezes, rales CV RRR, no m/g/r Ext Warm, pulses 2+, NO edema Lab and Diagnostics Result Diagram: 04/28/1750904/28/17 0510 X-Rays, CTs and MRIs Date of Service: 04/16/17 1150 PROCEDURE: X-RAY CHEST ONE VIEW, PORTABLE ([id number]) IMPRESSION: Severe bilateral pneumonia. Date of Service: 04/26/17 0721 PROCEDURE: X-RAY CHEST ONE VIEW, PORTABLE ([id number]) FINDINGS: Surgical changes and devices: Stable positioning of the ETT, nasogastric tube and right PICC. Lungs and pleura: Mild pulmonary edema persists. No pleural effusion or pneumothorax. Mediastinum: Mediastinal contours appear normal. Heart size is normal. Bones and chest wall: No suspicious bony lesions. Overlying soft tissues appear unremarkable. IMPRESSION: Stable support lines and tubes. Mild edema. Date of Service: 04/16/17 1214 PROCEDURE: CT ANGIO CHEST PULMONARY EMBOLISM ([id number]) IMPRESSION: 1. No pulmonary embolus. 2. Severe diffuse pneumonia. 3. Coronary artery disease. Dictated by: Celeste Bynum M.D. on 04/16/2017 at 12:51 Approved by: Celeste Bynum M.D. on 04/16/2017 at 12:52 Chest X-ray ( 04/22/2017) reviewed : Worsening diffused alveolar infiltrate 12-lead ECG SR. no significant ST elevation/depression. Cardiac Echo Impressions Interpretation Summary The left ventricle is normal in size. The ejection fraction is estimated to be 55-60%. There is a noticable interventricular septal shift that varies with respiration. Paradoxical septal motion is consistent with right ventricular pressure overload. The right ventricle is moderately dilated. The right ventricular systolic function is normal (TAPSE: 3.3 cm). There is mild tricuspid regurgitation. The right ventricular systolic pressure is estimated at 58 mmHg assuming a right atrial pressure of 8 mm Hg. There is moderate pulmonary hypertension. Additional Diagnostics Abdominal U/S 04/22/17: IMPRESSION: Splenomegaly at 15 cm craniocaudad, no abnormal free fluid seen throughout the peritoneal space. Prominent fatty infiltration within the liver. Quality of visualization was somewhat limited by the combative uncooperative nature of the current clinical status of the patient. Assessment & Plan Previously healthy middle aged man admitted with one week of malaise, cough, SOB , subjective fevers ans chills. Admission CXR showed diffuse reticular infiltrates. Progressed to respiratory failure on Sunday, 04/22 and was intubated by Anesthesia. 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 MRSA PCR+ and MRSA on ET aspirate Non-invasive bronchial washings show 24% eosinophils. His reports that he uses daily NSAIDS for arthralgias and myalgias from his strenuous physical labor. IMP 1 Acute Hypoxemic Respiratory Failure / ARDS. Improving / resolving. Tolerated extubation yesterday and continues to do well. Fits criteria for acute eosinophilic pneumonia. His inhalation of construction dust may play a role but his NSAIDS should also be suspected as contributing. Doubt very much this is coccidiomycosis or a helminthic infection. The rapid onset and lack of extrapulmonary organ involvement makes Churg-Jane very unlikely. He has had steady radiographic and clinical improvement on steroids which were decreased yesterday. Would favor stopping his antibiotics PLAN Solumedrol 60 q12 Wean O2 as he tolerates DC Abx GI and VTE prophylaxis Advance diet = GI Prophylaxis: Not indicated VTE Prophylaxis: Sub-Q Heparin (Unfractionated), SCDs VTE Mechanical Devices: Intermittant Pneumatic CD Resuscitation Status: CPR: Attempt Resuscitation (discussed and verified with patient) Albert Nguyen MD Apr 28, 2017 09:35
[2017-04-28] MEDS ORDERED: Dextrose 10% 250 ML IV PRN (09:55)
[2017-04-28] MEDS: MethylprednisoLONE Sodium Succinate 62.5 mg/mL 2 mL Inj IVPUSH SCH ×2 (10:31→20:44)
--- NOTE | 2017-04-28 10:52 | PCM.PNMED ---
Subjective Date of Service Apr 28, 2017 Subjective Patient's daughter about her related. He still has a cough productive of yellowish phlegm. No fevers or chills. Minimal perceived dyspnea. He had no chest pain. No nausea. Good appetite. No abdominal pain. Good bowel movement. No choking. No overnight events Exam Vital Signs Vital Sign - Last Date Time Temp Pulse Resp B/P Pulse Ox O2 Delivery O2 Flow Rate FiO2 04/28/17 08:12 36.3 71 28 103/69 92 OxyMask 3.50 04/27/17 08:00 40 Intake and Output 04/27/17 04/27/17 04/28/17 Cumulative From/Thru 15:00 23:00 07:00 04/16/17 11:01 - 04/28/17 06:13 Intake Total 592 ml 240 ml 28833 ml Output Total 1275 ml 725 ml 41471 ml Balance -683 ml -485 ml 8355 ml Intake Oral 240 ml 8690 ml IV Total 592 ml 05375 ml Tube Feeding 1757 ml Tube Irrigant 720 ml Output Urine Total 1275 ml 725 ml 63869 ml Gastric Drainage Total 655 ml # Voids 2 # Bowel Movements 2 1 4 Exam Alert and oriented -3, no distress. Fluent speech Anicteric sclera. Lungs are clear with normal rate and effort Heart is regular without murmur gallop or rub Abdomen soft nontender, flat Extremities are free of edema. Skin is free of rash or lesions. IVs and Medications Medications Reviewed: Medications were reviewed in detail Lab and Diagnostics Result Diagram: 04/28/17 0510 04/28/17 0510 X-Rays, CTs and MRIs Date of Service: 04/16/17 1150 PROCEDURE: X-RAY CHEST ONE VIEW, PORTABLE ([id number]) IMPRESSION: Severe bilateral pneumonia. Date of Service: 04/26/17 0721 PROCEDURE: X-RAY CHEST ONE VIEW, PORTABLE ([id number]) FINDINGS: Surgical changes and devices: Stable positioning of the ETT, nasogastric tube and right PICC. Lungs and pleura: Mild pulmonary edema persists. No pleural effusion or pneumothorax. Mediastinum: Mediastinal contours appear normal. Heart size is normal. Bones and chest wall: No suspicious bony lesions. Overlying soft tissues appear unremarkable. IMPRESSION: Stable support lines and tubes. Mild edema. Date of Service: 04/16/17 1214 PROCEDURE: CT ANGIO CHEST PULMONARY EMBOLISM ([id number]) IMPRESSION: 1. No pulmonary embolus. 2. Severe diffuse pneumonia. 3. Coronary artery disease. Dictated by: Celeste Bynum M.D. on 04/16/2017 at 12:51 Approved by: Celeste Bynum M.D. on 04/16/2017 at 12:52 Chest X-ray ( 04/22/2017) reviewed : Worsening diffused alveolar infiltrate 12-lead ECG SR. no significant ST elevation/depression. Cardiac Echo Impressions Interpretation Summary The left ventricle is normal in size. The ejection fraction is estimated to be 55-60%. There is a noticable interventricular septal shift that varies with respiration. Paradoxical septal motion is consistent with right ventricular pressure overload. The right ventricle is moderately dilated. The right ventricular systolic function is normal (TAPSE: 3.3 cm). There is mild tricuspid regurgitation. The right ventricular systolic pressure is estimated at 58 mmHg assuming a right atrial pressure of 8 mm Hg. There is moderate pulmonary hypertension. Additional Diagnostics Abdominal U/S 04/22/17: IMPRESSION: Splenomegaly at 15 cm craniocaudad, no abnormal free fluid seen throughout the peritoneal space. Prominent fatty infiltration within the liver. Quality of visualization was somewhat limited by the combative uncooperative nature of the current clinical status of the patient. Assessment & Plan 1. Acute Respiratory Failure with hypoxia, POA and stable, improved. He is now down to 3 L of oxygen nasal cannula. Continue to follow to wean as appropriate. 2. Eosinophilic pneumonia , POA and improving. We will continue a slow taper of steroids. Anticipate a 4-6 week course of steroids in total. Antibiotics will be continued until April 28. 3. Probable opiate dependence, POA. Resolved. 4. Nutrition, transition to oral intake. This is going well, we will advance diet to regular. DVT and GI prophylaxis. For today and then stop GI prophylaxis tomorrow. Anticipate discharge home in 2-3 days. = GI Prophylaxis: Not indicated VTE Prophylaxis: Sub-Q Heparin (Unfractionated), SCDs VTE Mechanical Devices: Intermittant Pneumatic CD Resuscitation Status: CPR: Attempt Resuscitation (discussed and verified with patient) Edvin Melendez MD Apr 28, 2017 10:52
[2017-04-28] MEDS ORDERED: Sodium Chloride NAS 45 mL Spray NASAL PRN (11:50)
--- NOTE | 2017-04-28 13:16 | NUR ---
NUTRITION FOLLOW UP: ASSESS: 52 YO M admitted to CCU with eosinophilic pneumonia with ARDS. Pt required intubation 04/22. Prior to intubation pt was eating ~50% of meals x 5 days. Enteral formula changed to Glucerna 1.5 (04/25) due to elevated BG levels and high propofol rate and running at goal rate prior to successful extubation yesterday. Diet advanced to general today per MD, and notes confirm pt. has excellent appetite. PMHX: Hypercholesterolemia. LABS: Reviewed. CO2 30, BUN 30, Cr 0.54, Glu 149. MEDS: Reviewed. Solu-medrol, senna, dulcolax, miralax, insulin. GI: BM x 1 today. SKIN: No PU per WC. WT: 94.1 kg, BMI 31.5 kg/m2, IBW 70 kg, admit wt 91.2kg DIET: NPO NUTRITION SUPPORT DISCONTINUED: Glucerna 1.5 @ 40ml/hr + 1 packet prosource TID. ESTIMATED NEEDS: BMI Calories: 9037-7947 kcal/day (20-22 kcal/kg BW) Protein: 105-126 g/day (1.5-1.8 g/kg IBW) Fluids: 2500 ml/day (25 ml/kg) NUTRITION DIAGNOSIS: 1) Inadequate oral intake related to respiratory status as evidence by NPO status post extubation - RESOLVED. NUTRITION INTERVENTION: 1) Pt. is not malnourished as he as been taking enteral feeding during intubation, with diet advanced in timely manner status post extubation. No further recommendations at this time. MONITOR/EVALUATE: PO intake, labs, GI status, wt, POC, nutrition status. Follow per moderate nutrition risk guidelines.
--- NOTE | 2017-04-28 18:16 | NUR ---
SPO2 Cardiac: Tele SR 70s, denies chest pain. tele dc'd this AM. Resp: Pt denies SOB at rest. SPO2 mid to low 90s on RA at rest on 4L Oxymask. Pt desats to 80s with activity. GI/: Pt denies n/v/d, and declines bowel meds. Neuro: A&O, SUNG. Pt up to BR to void and for shower. up with PT in halls walking with FWW.
[2017-04-28] MEDS ORDERED: Glucose 40% Oral Gel 15 Gm Tube PO PRN (21:05)
[2017-04-28] MEDS ORDERED: Insulin LISPRO 300 Unit/3 mL Inj SUBQ SCH (22:00)
[2017-04-29] VITALS (10 sets, daily range): BP systolic 98–108; BP diastolic 62–72; PULSE 65–91; RESP 19–24; O2SAT 88–97
[2017-04-29] MEDS: Heparin 5,000 Unit/mL Inj SUBQ SCH ×4 (01:20→23:19)
[2017-04-29 05:53] LABS: BASOPHILS % (AUTO) 0.1 % (0-3); EOSINOPHILS % (AUTO) 0.3 % (0-5); MONOCYTES % (AUTO) 6.9 % (4-12); Mean Corpuscular Hemoglobin 30.5 pg (27.0-35.0); Mean Corpuscular Volume 89.2 fL (81-100); NEUTROPHILS % (AUTO) 78.2 % (40-74); Platelet Count 394 bil/L (150-400)
--- NOTE | 2017-04-29 07:41 | NUR ---
Pain/Sleep Pt c/o 6/10 pain in legs, mostly calves and headache, states he had increased activity during day. Tylenol minimally effective, notified and ordered oxycodone w/ good effect, pain down to 2/10 when reassessed. This morning pt stated he had trouble sleeping last night, states he feels the steroids affect him that way. Would like to try a sleep aid for tonight, passed on to day RN. Pt continues on 4L NC and oxymask, monitored on DIRECT[employer] TELE[employer].
[2017-04-29] MEDS: Albuterol-Ipratropium 3 mL Inhalation Solution NEB SCH ×4 (08:06→19:46)
--- NOTE | 2017-04-29 08:20 | DRSVH ---
PROCEDURE: X-RAY CHEST ONE VIEW, PORTABLE ([id number]) INDICATIONS: pneumonia TECHNIQUE: One view of the chest was acquired. COMPARISON: [facility], CR, XR CHEST 1VW (PORTABLE), 04/28/2017, 4:23. FINDINGS: Surgical changes and devices: Right upper extremity PICC line redemonstrated with the tip in the prox imal right atrium. Consider withdrawal by approximately 2 cm there. Lungs and pleura: No pleural effusions or pneumothorax. There is persistent mild pulmonary edema. Mediastinum: Mediastinal contours appear unchanged. Heart size is normal. Bones and chest wall: No suspicious bony lesions. Overlying soft tissues appear unremarkable. IMPRESSION: 1. PICC line tip extends into the proximal right atrium. Consider withdrawal by approximately 2 cm. 2. Persistent mild pulmonary edema. Dictated by: Amarjit Munoz M.D. on 04/29/2017 at 8:11 Approved by: Amarjit Munoz M.D. on 04/29/2017 at 8:13
--- NOTE | 2017-04-29 08:54 | PCM.PNMED ---
Subjective Date of Service Apr 29, 2017 Subjective He is doing well. Is having some anxiety and feeling jittery at night. He has some secondary insomnia. His breathing continues to improve. He does get a little dyspneic with movement. Minimal cough. No chest pain or palpitations. No nausea or diarrhea. Good appetite. No overnight events Exam Vital Signs Vital Sign - Last Date Time Temp Pulse Resp B/P Pulse Ox O2 Delivery O2 Flow Rate FiO2 04/29/17 08:07 68 20 93 Nasal Cannula 4.00 04/29/17 07:48 35.9 100/67 04/27/17 08:00 40 Intake and Output 04/28/17 04/28/17 04/29/17 Cumulative From/Thru 15:00 23:00 07:00 04/16/17 11:01 - 04/29/17 06:25 Intake Total 470 ml 400 ml 460 ml 37317 ml Output Total 550 ml 425 ml 32287 ml Balance 470 ml -150 ml 35 ml 8710 ml Intake Oral 400 ml 460 ml 9550 ml IV Total 470 ml 62617 ml Tube Feeding 1757 ml Tube Irrigant 720 ml Output Urine Total 550 ml 425 ml 56371 ml Gastric Drainage Total 655 ml # Voids 2 # Bowel Movements 2 6 Exam Alert and oriented -3, no distress. Fluent speech Anicteric sclera. Lungs are clear with normal rate and effort Heart is regular without murmur gallop or rub Abdomen soft nontender, flat Extremities are free of edema. Skin is free of rash or lesions. IVs and Medications Medications Reviewed: Medications were reviewed in detail Lab and Diagnostics Result Diagram: 04/29/1735 04/29/17 0535 X-Rays, CTs and MRIs Date of Service: 04/16/17 1150 PROCEDURE: X-RAY CHEST ONE VIEW, PORTABLE ([id number]) IMPRESSION: Severe bilateral pneumonia. Date of Service: 04/26/17 0721 PROCEDURE: X-RAY CHEST ONE VIEW, PORTABLE ([id number]) FINDINGS: Surgical changes and devices: Stable positioning of the ETT, nasogastric tube and right PICC. Lungs and pleura: Mild pulmonary edema persists. No pleural effusion or pneumothorax. Mediastinum: Mediastinal contours appear normal. Heart size is normal. Bones and chest wall: No suspicious bony lesions. Overlying soft tissues appear unremarkable. IMPRESSION: Stable support lines and tubes. Mild edema. Date of Service: 04/16/17 1214 PROCEDURE: CT ANGIO CHEST PULMONARY EMBOLISM ([id number]) IMPRESSION: 1. No pulmonary embolus. 2. Severe diffuse pneumonia. 3. Coronary artery disease. Dictated by: Celeste Bynum M.D. on 04/16/2017 at 12:51 Approved by: Celeste Bynum M.D. on 04/16/2017 at 12:52 Chest X-ray ( 04/22/2017) reviewed : Worsening diffused alveolar infiltrate 12-lead ECG SR. no significant ST elevation/depression. Cardiac Echo Impressions Interpretation Summary The left ventricle is normal in size. The ejection fraction is estimated to be 55-60%. There is a noticable interventricular septal shift that varies with respiration. Paradoxical septal motion is consistent with right ventricular pressure overload. The right ventricle is moderately dilated. The right ventricular systolic function is normal (TAPSE: 3.3 cm). There is mild tricuspid regurgitation. The right ventricular systolic pressure is estimated at 58 mmHg assuming a right atrial pressure of 8 mm Hg. There is moderate pulmonary hypertension. Additional Diagnostics Abdominal U/S 04/22/17: IMPRESSION: Splenomegaly at 15 cm craniocaudad, no abnormal free fluid seen throughout the peritoneal space. Prominent fatty infiltration within the liver. Quality of visualization was somewhat limited by the combative uncooperative nature of the current clinical status of the patient. Assessment & Plan 1. Acute Respiratory Failure with hypoxia, POA and stable, continues to improve. He is now down to 4 L of oxygen nasal cannula. Continue to follow to wean as appropriate. 2. Eosinophilic pneumonia , POA and improving. We will continue a slow taper of steroids. Anticipate a 4-6 week course of steroids in total. Antibiotics will be continued until April 28. 3. Probable opiate dependence, POA. Resolved. 4. Nutrition, transition to oral intake. This is going well, we will advance diet to regular. DVT and GI prophylaxis. For today and then stop GI prophylaxis tomorrow. Anticipate discharge home in 2-3 days. = GI Prophylaxis: Not indicated VTE Prophylaxis: Sub-Q Heparin (Unfractionated), SCDs VTE Mechanical Devices: Intermittant Pneumatic CD Resuscitation Status: CPR: Attempt Resuscitation (discussed and verified with patient) Edvin Melendez MD Apr 29, 2017 08:54
[2017-04-29] MEDS: MethylprednisoLONE Sodium Succinate 62.5 mg/mL 2 mL Inj IVPUSH SCH ×2 (09:07→20:37)
[2017-04-29] MEDS: Sodium Chloride LOK Flush 10 mL Syringe IVFLUSH PRN (09:07)
[2017-04-29] MEDS ORDERED: Menthol Gel 57 Gm Tube TOPICAL PRN (14:35)
--- NOTE | 2017-04-29 15:11 | PCM.PNMED ---
Subjective Date of Service Apr 29, 2017 Subjective Awake, alert. just back to bed after a long walk. Minimal cough. No fever, chills, sweats Exam Vital Signs Vital Sign - Last Date Time Temp Pulse Resp B/P Pulse Ox O2 Delivery O2 Flow Rate FiO2 04/29/17 11:54 73 20 93 Nasal Cannula 4.00 04/29/17 11:36 36.5 106/64 04/27/17 08:00 40 Intake and Output 04/28/17 04/28/17 04/29/17 Cumulative From/Thru 15:00 23:00 07:00 04/16/17 11:01 - 04/29/17 06:25 Intake Total 470 ml 400 ml 460 ml 11290 ml Output Total 550 ml 425 ml 28367 ml Balance 470 ml -150 ml 35 ml 8710 ml Intake Oral 400 ml 460 ml 9550 ml IV Total 470 ml 45588 ml Tube Feeding 1757 ml Tube Irrigant 720 ml Output Urine Total 550 ml 425 ml 88799 ml Gastric Drainage Total 655 ml # Voids 2 # Bowel Movements 2 6 Exam Lungs Decreased breath sounds, NO wheezes CV RRR, no m/g/r Abd Soft, normal BTs, nontender Lab and Diagnostics Result Diagram: 04/29/17 0535 04/29/17 0535 X-Rays, CTs and MRIs Date of Service: 04/16/17 1150 PROCEDURE: X-RAY CHEST ONE VIEW, PORTABLE ([id number]) IMPRESSION: Severe bilateral pneumonia. Date of Service: 04/26/17 0721 PROCEDURE: X-RAY CHEST ONE VIEW, PORTABLE ([id number]) FINDINGS: Surgical changes and devices: Stable positioning of the ETT, nasogastric tube and right PICC. Lungs and pleura: Mild pulmonary edema persists. No pleural effusion or pneumothorax. Mediastinum: Mediastinal contours appear normal. Heart size is normal. Bones and chest wall: No suspicious bony lesions. Overlying soft tissues appear unremarkable. IMPRESSION: Stable support lines and tubes. Mild edema. Date of Service: 04/16/17 1214 PROCEDURE: CT ANGIO CHEST PULMONARY EMBOLISM ([id number]) IMPRESSION: 1. No pulmonary embolus. 2. Severe diffuse pneumonia. 3. Coronary artery disease. Dictated by: Celeste Bynum M.D. on 04/16/2017 at 12:51 Approved by: Celeste Bynum M.D. on 04/16/2017 at 12:52 Chest X-ray ( 04/22/2017) reviewed : Worsening diffused alveolar infiltrate 12-lead ECG SR. no significant ST elevation/depression. Cardiac Echo Impressions Interpretation Summary The left ventricle is normal in size. The ejection fraction is estimated to be 55-60%. There is a noticable interventricular septal shift that varies with respiration. Paradoxical septal motion is consistent with right ventricular pressure overload. The right ventricle is moderately dilated. The right ventricular systolic function is normal (TAPSE: 3.3 cm). There is mild tricuspid regurgitation. The right ventricular systolic pressure is estimated at 58 mmHg assuming a right atrial pressure of 8 mm Hg. There is moderate pulmonary hypertension. Additional Diagnostics Abdominal U/S 04/22/17: IMPRESSION: Splenomegaly at 15 cm craniocaudad, no abnormal free fluid seen throughout the peritoneal space. Prominent fatty infiltration within the liver. Quality of visualization was somewhat limited by the combative uncooperative nature of the current clinical status of the patient. Assessment & Plan Previously healthy middle aged man admitted with one week of malaise, cough, SOB , subjective fevers ans chills. Admission CXR showed diffuse reticular infiltrates. Progressed to respiratory failure on Sunday, 04/22 and was intubated by Anesthesia. 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 MRSA PCR+ and MRSA on ET aspirate Non-invasive bronchial washings show 24% eosinophils. His reports that he uses daily NSAIDS for arthralgias and myalgias from his strenuous physical labor. IMP 1 Acute Hypoxemic Respiratory Failure / ARDS. Improving / resolving. Tolerated extubation 04/27 and continues to do well. Fits criteria for acute eosinophilic pneumonia. His inhalation of construction dust may play a role but his regular use of NSAIDS should also be suspected as contributing. Doubt very much this is coccidiomycosis or a helminthic infection. The rapid onset and lack of extrapulmonary organ involvement makes Churg-Jane very unlikely. He has had steady radiographic and clinical improvement on steroids which were decreased yesterday. Would favor stopping his antibiotics PLAN Solumedrol 60 q12, step down to oral steroids 04/30. Wean O2 as he tolerates DC Abx GI and VTE prophylaxis Advance diet = GI Prophylaxis: Not indicated VTE Prophylaxis: Sub-Q Heparin (Unfractionated), SCDs VTE Mechanical Devices: Intermittant Pneumatic CD Resuscitation Status: CPR: Attempt Resuscitation (discussed and verified with patient) Albert Nguyen MD Apr 29, 2017 15:11
--- NOTE | 2017-04-29 18:29 | NUR ---
Activity/oxygen Cardiac: Pt denies CP, No tele, HR 70s-80s Resp: Pt denies SOB at rest, SPO2 low to mid 90s on 4L NC, pt does desat a bit with activity and has not been able to titrate down on O2. Pt has been given teaching on the importance of deep breathing to help with oxygenation. O2 titrated down to 3L NC by end of shift, SPO2 92-95%. GI/: pt denies n/v/d Neuro: Pt A&O, PINEDA, working w/ PT, ambulating in halls frequently this shift. Pt reports his calves keep cramping when he is working on increasing his activity endurance.
[2017-04-30 04:44] VITALS: BP 97/68; RESP 19; O2SAT 93
--- NOTE | 2017-04-30 05:20 | NUR ---
O2/ sleep: Sp02 maintained mid 90s on 4 L NC / oxymask. Melatonin given at HS per pt request. Pt initially sleeping comfortably until around 0130 at which point pt awake and c/o headache. PRN PO oxycodone given at this time. Pt still reporting intermittent restlessness and insomnia. requesting sleeping pill for tonight. Will pass on to day RN.
[2017-04-30] MEDS: Albuterol-Ipratropium 3 mL Inhalation Solution NEB SCH ×3 (05:54→13:06)
[2017-04-30 05:56] VITALS: PULSE 61; RESP 22; O2SAT 94
[2017-04-30 07:45] VITALS: BP 106/63; PULSE 71; RESP 16; O2SAT 94
[2017-04-30] MEDS: Heparin 5,000 Unit/mL Inj SUBQ SCH (08:30)
[2017-04-30 08:55] VITALS: PULSE 69; RESP 18; O2SAT 95
--- NOTE | 2017-04-30 11:01 | PCM.DIMED ---
Discharge Instructions Date of Service Apr 30, 2017 Dates of Hospitalization April 16, 2017 at 13:15 Discharge Diagnosis Discharge Diagnosis 1. Acute Respiratory Failure with hypoxia, improving. 2. Eosinophilic pneumonia , improving. Diet Discharge Diet: No restrictions Activity Discharge Activity: Limited until seen by PCP Call your provider Call your provider for: Fever or Chills, Shortness of breath Patient Instructions Follow-up Provider: Massimo Queen DO Follow-up with PCP in: 1 week Edvin Melendez MD Apr 30, 2017 11:01
[2017-04-30] MEDS ORDERED: PRE20 PO (11:03)
[2017-04-30] MEDS: MethylprednisoLONE Sodium Succinate 62.5 mg/mL 2 mL Inj IVPUSH SCH (12:04)
[2017-04-30] MEDS ORDERED: HYDR-4003 PO (13:09)
--- NOTE | 2017-04-30 13:34 | PCM.DC.MED ---
Discharge Summary Date of Service Apr 30, 2017 Dates of Hospitalization Date of Hospital Admission April 16, 2017 at 13:15 Date of Discharge: Apr 30, 2017 Providers: Admitting Physician: Nestor Ring Primary Care Physician: Massimo Queen DO Attending Physician: Nestor Ring Diagnosis at Time of Discharge Diagnosis at Time of Discharge 1. Acute Respiratory Failure with hypoxia, improving. 2. Eosinophilic pneumonia , improving. Consultations Pulmonary critical care Infectious disease Procedures XRay, CTs & MRIs Date of Service: 04/16/17 1150 PROCEDURE: X-RAY CHEST ONE VIEW, PORTABLE ([id number]) IMPRESSION: Severe bilateral pneumonia. Date of Service: 04/26/17 0721 PROCEDURE: X-RAY CHEST ONE VIEW, PORTABLE ([id number]) FINDINGS: Surgical changes and devices: Stable positioning of the ETT, nasogastric tube and right PICC. Lungs and pleura: Mild pulmonary edema persists. No pleural effusion or pneumothorax. Mediastinum: Mediastinal contours appear normal. Heart size is normal. Bones and chest wall: No suspicious bony lesions. Overlying soft tissues appear unremarkable. IMPRESSION: Stable support lines and tubes. Mild edema. Date of Service: 04/16/17 1214 PROCEDURE: CT ANGIO CHEST PULMONARY EMBOLISM ([id number]) IMPRESSION: 1. No pulmonary embolus. 2. Severe diffuse pneumonia. 3. Coronary artery disease. Dictated by: Celeste Bynum M.D. on 04/16/2017 at 12:51 Approved by: Celeste Bynum M.D. on 04/16/2017 at 12:52 Chest X-ray ( 04/22/2017) reviewed : Worsening diffused alveolar infiltrate ECG 12 [address] SR. no significant ST elevation/depression. Cardiac Echo Impression Interpretation Summary The left ventricle is normal in size. The ejection fraction is estimated to be 55-60%. There is a noticable interventricular septal shift that varies with respiration. Paradoxical septal motion is consistent with right ventricular pressure overload. The right ventricle is moderately dilated. The right ventricular systolic function is normal (TAPSE: 3.3 cm). There is mild tricuspid regurgitation. The right ventricular systolic pressure is estimated at 58 mmHg assuming a right atrial pressure of 8 mm Hg. There is moderate pulmonary hypertension. Other Diagnostics Abdominal U/S 04/22/17: IMPRESSION: Splenomegaly at 15 cm craniocaudad, no abnormal free fluid seen throughout the peritoneal space. Prominent fatty infiltration within the liver. Quality of visualization was somewhat limited by the combative uncooperative nature of the current clinical status of the patient. Brief History 52 year old male who is generally healthy with past medical history notable for hypercholesterolemia and low testosterone presents with 2 days of ongoing and worsening generalized malaise, cough, fever, chills, and shortness of breath. He first noted getting tired with minimal exertion about 2 days ago. Then last night had subjective fever and this morning had fever and chills. He was having non-productive cough initially but this morning thinks he saw some blood in his sputum. He initially presented to urgent care and was noted to be hypoxemic on room air and was sent to ED. Patient notes that after receiving supplemental oxygen he started feeling much better and a headache that he was developing resolved. He denies any recent sick contacts or travel other than attending a one week ago at [facility]. He denies any prior episodes of pneumonia or respiratory issues. He does endorse about 10 lb weight loss in past couple of months which he attributes to change in his diet. He further reports chronic tingling in his finger and right leg over the past 2 years that is being worked up by his primary care provider as outpatient. In ED he has received a dose of IV Rocephin and Azithromycin. Hospital Course Previously healthy middle aged man admitted with one week of malaise, cough, SOB , subjective fevers ans chills. Admission CXR showed diffuse reticular infiltrates. Progressed to respiratory failure on Sunday, 04/22 and was intubated by Anesthesia. 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 MRSA PCR+ and MRSA on ET aspirate Non-invasive bronchial washings show 24% eosinophils. His reports that he uses daily NSAIDS for arthralgias and myalgias from his strenuous physical labor. IMP 1 Acute Hypoxemic Respiratory Failure / ARDS. Improving / resolving. Tolerated extubation 04/27 and continues to do well. Fits criteria for acute eosinophilic pneumonia. His inhalation of construction dust may play a role but his regular use of NSAIDS should also be suspected as contributing. Doubt very much this is coccidiomycosis or a helminthic infection. The rapid onset and lack of extrapulmonary organ involvement makes [place] very unlikely. He has had steady radiographic and clinical improvement on steroids which were decreased yesterday. Would favor stopping his antibiotics PLAN Solumedrol 60 q12, step down to oral steroids 04/30. Wean O2 as he tolerates DC Abx GI and VTE prophylaxis Advance diet = Exam Vital Signs (Last) Date Time Temp Pulse Resp B/P Pulse Ox O2 Delivery O2 Flow Rate FiO2 04/30/17 09:40 Nasal Cannula 4.00 04/30/17 08:55 69 18 95 04/30/17 07:45 106/63 04/29/17 23:17 36.1 04/27/17 08:00 40 Exam Patient seen and examined on the day of discharge Test 04/16/17 20:50 04/17/17 02:45 04/20/17 17:56 04/21/17 16:05 Urine Color Yellow (YELLOW) Urine Appearance Clear (CLEAR,HAZY) Urine pH 6.0 (5.0-8.0) Urine Specific [place] 1.015 (1.003-1.035) Urine Protein Negativemg/dL (NEG,TRACE) Urine Glucose (UA) Negativemg/dL (NEGATIVE) Urine Ketones Negativemg/dL (NEGATIVE) Urine Occult Blood Negative (NEGATIVE) Urine Nitrite Negative (NEGATIVE) Urine Bilirubin Negative (NEGATIVE) Urine Urobilinogen Normalmg/dL (NORMAL) Urine Leukocyte Esterase Negative (NEGATIVE) Urine RBC 0-2/hpf (0-2) Urine WBC 0-5/hpf (0-5) Urine Epithelial Cells Occasional/hpf (NONE-MOD) Urine Crystals None seen (NONE SEEN) Urine Bacteria None/hpf (NONE-FEW) Urine Hyaline Casts None/lpf (NONE) Urine Granular Casts None seen (NONE SEEN) Urine Waxy Casts None seen (NONE SEEN) Urine Red Blood Cell Casts None seen (NONE SEEN) Urine White Blood Cell Casts None seen (NONE SEEN) Urine Mucus Present (None Seen) Urine Trichomonas None seen (NONE SEEN) Urine Yeast None (NONE SEEN) Urinalysis Comment None Urine Culture Reflexed Not indicated Urine Legionella pneumophilia Ag Negative (Negative) Prothrombin Time 11.3sec (8.1-12.5) Prothromb Time International Ratio 1.05ratio Activated Partial Thromboplast Time 33.7sec (22.8-33.0) Cryptococcus Antigen Negative (Negative) Hanta Virus IgG Antibody <2.00 [place]anta Virus IgM Antibody <2.00 Hepatitis C Antibody <0.1s/co ratio (0.0-0.9) HIV (1&2) Ag and Ab, 4th Generation Non reactive (Non Reactive) Aspergillus galactomannan Antigen 0.06Index (0.00-0.49) Vancomycin Level Trough 7.3mcg/mL Test 04/22/17 13:08 04/22/17 18:30 04/23/17 03:25 04/23/17 03:34 Body Fluid Source Bronchial washing Body Fluid Color Straw (Clear) Body Fluid Appearance Hazy Body Fluid WBC 258/mm3 Body Fluid RBC 50/mm3 Body Fluid Polynuclear WBCs 46% Body Fluid Lymphocytes 20% Body Fluid Monocytes 10% Body Fluid Eosinophils 24% Body Fluid Basophils 0% Hold Urine Received (Received) Lactic Acid Level 0.9mmol/L (0.4-2.0) Ionized Calcium 1.16mmol/L (1.17-1.32) Phosphorus Level 4.7mg/dL (2.5-4.9) Magnesium Level 2.1mg/dL (1.6-2.6) Total Bilirubin 0.3mg/dL (0.0-1.2) Aspartate Amino Transf (AST/SGOT) 14U/L (0-50) Alanine Aminotransferase (ALT/SGPT) 10U/L (0-44) Alkaline Phosphatase 161U/L (25-150) Total Protein 5.6g/dL (6.4-8.4) Albumin 2.2g/dL (3.4-5.0) Procalcitonin 0.22ng/mL (0.00-0.08) Thyroid Stimulating Hormone (TSH) 0.807uIU/mL (0.450-4.500) TB Test (QFT) Gold In Tube Indeterminate (Negative) TB Test (QFT) Incubation Comment (.) TB Test (QFT) Mitogen 0.24IU/mL (.) TB Test (QFT) Antigen 0.03IU/mL (.) TB Test (QFT) Antigen Minus Nil 0.01IU/mL (.) TB Test (QFT) TB - Nil 0.02IU/mL (.) TB Test (QFT) Positive Criteria Comment (.) TB Test (QFT) Interpretation Comment (.) Test 04/23/17 03:40 04/24/17 00:40 04/24/17 04:35 04/25/17 04:45 Urine Hemosiderin Negative (Negative) Troponin T 0.010ug/L (0.0-0.011) Erythrocyte Sedimentation Rate 60mm/hr (0-30) Hemoglobin A1c 5.6% (4.8-5.6) Prealbumin 19mg/dL (20-40) Test 04/26/17 06:15 04/26/17 08:15 04/28/17 05:10 04/29/17 05:35 Triglycerides Level 433mg/dL (0-149) Hold Purple Top Tube Received (Received) Hold Blue Top Tube Received (Received) Hold [place] Top Tube Received (Received) Pro-B-Type Natriuretic Peptide 161.4pg/mL (0-121) White Blood Count 13.7th/mm3 (3.8-10.1) Red Blood Count 5.11mil/mm3 (4.40-5.80) Hemoglobin 15.6g/dL (13.8-17.2) Hematocrit 45.6% (41.0-50.0) Mean Corpuscular Volume 89.2fL (81-100) Mean Corpuscular Hemoglobin 30.5pg (27.0-35.0) Mean Corpuscular Hemoglobin Concent 34.2% (32.0-37.0) Red Cell Distribution Width 12.0% (12.3-15.4) Platelet Count 394bil/L (150-400) Neutrophils (%) (Auto) 78.2% (40-74) Lymphocytes (%) (Auto) 12.2% (14-46) Monocytes (%) (Auto) 6.9% (4-12) Eosinophils (%) (Auto) 0.3% (0-5) Basophils (%) (Auto) 0.1% (0-3) Sodium Level 136mEq/L (134-144) Potassium Level 4.6mEq/L (3.5-5.2) Chloride Level 99mEq/L (97-108) Carbon Dioxide Level 26mmol/L (18-29) Blood Urea Nitrogen 30mg/dL (6-24) Creatinine 0.53mg/dL (0.76-1.27) Estimat Glomerular Filtration Rate 172mL/min (>59) Glucose Level 137mg/dL (60-99) Calcium Level 8.9mg/dL (8.5-10.1) Discharge Medications Discharge Medications Prednisone (PredniSONE) 20 Mg Tablet 40 MG PO DAILY Prescribed by: EDVIN DEY MD As needed Hydrocodone-Acetaminophen 5-325 mg (Hydrocodone-Acetaminophen 5-325 mg) 1 Each Tablet 1 TABLET PO Q4H PRN PRN For Pain Prescribed by: EDVIN DEY MD Followup Plan Disposition: Home Discharge Diet: No restrictions Discharge Activity: Limited until seen by PCP Follow-up Provider: Massimo Queen DO Follow-up with PCP in: 1 week Time spent 60 minutes Edvin Dey MD Apr 30, 2017 13:34
--- NOTE | 2017-04-30 14:01 | NUR ---
Discharge Pt discharged at 1350. He was given discharge instructions and instructions for follow up care. He was given 2 prescriptions to take with him to be filled. He confirmed he understood all of his discharge instructions. He was given education on new prescription medication. He left with a portable O2 tank. His was present at time of discharge. He was brought via wheelchair to the hospital exit where his picked him up and would be driving him home.
--- NOTE | 2017-04-30 14:41 | NUR ---
Social Work Note: Discharge Data& Assessment: EMR Reviewed. Per pt is medically ready for discharge. Uli Yen is a 52 year old male admitted on 04/16/2017 for CAP. Per pt is medically improved and ready to discharge home with home 02 arranged by RT and Pulmonary rehab on an outpt basis. SW met with pt and pt at bedside to confirm discharge plan and assess for any unmet needs. Pt to transport pt home today. Pt denies any needs at this time. No other discharge needs identified. Plan: Per pt is medically ready to discharge home via POV with home oxygen and outpt pulmonary rehab. Pt denies any other needs. No other discharge needs identified. MALACHI Richter
--- NOTE | 2017-05-03 11:40 | PROG NOTE ---
[address] [address] PROGRESS NOTE PATIENT: MI REED : 1965 MR#: [id number] ADMIT: 04/16/2017 JOB ID: [id number] DATE: 04/30/2017 REASON FOR FOLLOWUP: Eosinophilic pneumonia. INTERVAL HISTORY: Recall, this is the complex 52-year-old gentleman who was admitted 15 days ago now with progressive interstitial pneumonia and respiratory failure, eventually requiring intubation and ventilator support. An extensive ID workup has been concluded, and we did not find evidence of infection. A mini BAL did find evidence of eosinophilic pneumonia, and he has responded quite dramatically to steroids. At this point, the patient is getting ready for discharge, hopefully later today. He has no fevers, no chills, no sweats, and notes his breathing is steadily improving. He has a dry nonproductive cough, which is also improving. Antibiotics were stopped over the weekend, and recall that we had treated the patient for MRSA pneumonia based on a positive nasal MRSA swab. PHYSICAL EXAMINATION: Reveals a gentleman who is afebrile, pulse 69, respiratory rate 18. He is saturating 95% on 3 L. No acute distress. Mental status is normal. Oral cavity negative. Lungs: Almost clear, and recall that previously the patient had extensive rales bilaterally. Remainder of the exam is normal. No skin rash noted. LABORATORY DATA: Labs include a white count 13,000, but of course, that is due to steroids. Creatinine of 0.53. Hantavirus serologies finally came back and they are negative. Cryptococcal antigen was also negative. Galactomannan was negative, and QuantiFERON Gold was indeterminate. Blood cultures were negative, but we did have MRSA from two sputums. IMAGING DATA: Imaging includes a chest radiograph done just today that shows persistent mild interstitial infiltrates. IMPRESSION: Eosinophilic pneumonia, without evidence of infection, in a patient who was; however, colonized with methicillin-resistant Staphylococcus aureus quite heavily in his airway, and has now completed a course of methicillin-resistant Staphylococcus aureus therapy with Zyvox. RECOMMENDATIONS: 1. No additional antibiotics at this time. 2. The patient is ready for discharge. 3. ID will sign off.
== END 2017-04-30 14:45 | disposition home or self-care (01) | DRG 130 ==
LOC: SED 10:59 → MPC 13:15 → PCC 16:58 → CCU 04-22 10:55 → PCC 04-27 14:37
PROVIDERS: ADMIT Internal Medicine; ATTEND Internal Medicine
PROC: 4A033R1 Measurement of Arterial Saturation, Peripheral, Percutaneous Approach (ICD-10-PCS; 2017-04-16)
PROC: 5A09557 Assistance with Respiratory Ventilation, Greater than 96 Consecutive Hours, Continuous Positive Airway Pressure (ICD-10-PCS; 2017-04-18)
PROC: 5A1955Z Respiratory Ventilation, Greater than 96 Consecutive Hours (ICD-10-PCS; principal; 2017-04-22)
PROC: 0BH17EZ Insertion of Endotracheal Airway into Trachea, Via Natural or Artificial Opening (ICD-10-PCS; 2017-04-22)
DX: J96.01 Acute respiratory failure with hypoxia (principal); J82 Pulmonary eosinophilia, not elsewhere classified; I27.2 Other secondary pulmonary hypertension; R04.2 Hemoptysis; E78.00 Pure hypercholesterolemia, unspecified; Z22.322 Carrier or suspected carrier of Methicillin resistant Staphylococcus aureus; R79.89 Other specified abnormal findings of blood chemistry; J80 Acute respiratory distress syndrome; E87.70 Fluid overload, unspecified

== ENCOUNTER 2017-06-21 19:38 | Emergency (ER) | payer OTHER ==
[~2017-06-21] VITALS: Ht 172.7 cm; Wt 95.5 kg
[~2017-06-21 19:38] MED LIST changes: +HYDR-4003 PO; -NPR500T PO; -NYST15OI TP; -OXYC5TAB72 PO; +PRE20 PO
[2017-06-21 19:42] VITALS: BP 122/80; PULSE 76; RESP 24; O2SAT 97
--- NOTE | 2017-06-21 21:10 | ED.REPORT ---
HPI-Extremity Problem Lower Date of Service Jun 21, 2017 ED Provider: Damir Barillas MD Nursing Notes Stated Complaint: POSSIBLE DVT,SENT BY Chief Complaint: General Complaint Nursing Notes Reviewed: Yes Allergies: Coded Allergies: ibuprofen (Verified Adverse Reaction, Unknown, Told not to use., 06/21/17) Scheduled Prednisone (PredniSONE) 20 Mg Tablet 40 MG PO DAILY Scheduled PRN Hydrocodone-Acetaminophen 5-325 mg (Hydrocodone-Acetaminophen 5-325 mg) 1 Each Tablet 1 TABLET PO Q4H PRN PRN For Pain General Time Seen by MD: 21:08 Past Medical History Past Medical History Right upper extremity thrombophlebitis Past Surgical History Hiatal hernia surgery Smoking History Never Smoker Social History Alcohol Use: Denies alcohol use Drug Use: Denies drug use Ambulatory Status Independent Physical Exam Initial Vital Signs Vital Signs (First) Date Time Temp Pulse Resp B/P Pulse Ox O2 Delivery O2 Flow Rate FiO2 06/21/17 19:42 36.6 76 24 122/80 97 Nasal Cannula 3 Discharge & Departure Referrals: LAISHA MARC DO (PCP) Damir Barillas MD Jun 21, 2017 21:10
--- NOTE | 2017-06-21 21:33 | ED.REPORT ---
HPI-Extremity Problem Upper Date of Service Jun 21, 2017 ED Provider: Damir Barillas MD A 52 year old male with a history of right upper extremity thrombophlebitis, eosinophilic pneumonia and recent admission with intubation is referred to the ED from Urgent Care due to a small mass in his right upper extremity. The pt noticed a hard, red mass on his right forearm approximately one hour ago. The area is near where a PICC line was placed during his hospital stay in 03/2017. No other complaints are reported at this time. Nursing Notes Stated Complaint: POSSIBLE DVT,SENT BY Chief Complaint: General Complaint Nursing Notes Reviewed: Yes Allergies: Coded Allergies: ibuprofen (Verified Adverse Reaction, Unknown, Told not to use., 06/21/17) Scheduled Prednisone (PredniSONE) 20 Mg Tablet 40 MG PO DAILY Scheduled PRN Hydrocodone-Acetaminophen 5-325 mg (Hydrocodone-Acetaminophen 5-325 mg) 1 Each Tablet 1 TABLET PO Q4H PRN PRN For Pain General Time Seen by MD: 21:08 Chief Complaint Other (small mass in RUE) Hx Obtained From: Patient Arrived By: Walk-in Onset Occurred: 1 - 4 hours ago Symptom Duration: Since onset Recent Healthcare: Recent doctor visit, Recent hospitalization Similar Sx Previous: No Past Medical History Past Medical History Right upper extremity thrombophlebitis Eosinophilic pneumonia Past Surgical History Hiatal hernia surgery Back surgery Smoking History Never Smoker Social History Alcohol Use: "Social" Drug Use: Denies drug use Other Social History: Good social support Ambulatory Status Independent Review of Systems Review of Systems Note: small, hard mass in right upper extremity Constitutional: Denies: Fever Musculoskeletal: Denies: Back pain, Neck pain Skin: Denies Rash Complete sys rev & neg: except as marked. Respiratory: Denies: Non-productive cough, Shortness of breath Cardiovascular: Denies: Chest pain GI: Denies: Abdominal pain, Vomiting Physical Exam Initial Vital Signs Vital Signs (First) Date Time Temp Pulse Resp B/P Pulse Ox O2 Delivery O2 Flow Rate FiO2 06/21/17 19:42 36.6 76 24 122/80 97 Nasal Cannula 3 Initial VS: Reviewed, Vital signs normal General/Constitutional: Awake, Alert Neck: Atraumatic, Supple, Full range of motion Respiratory / Chest: Atraumatic, Breath sounds NL, Breath sounds = bilat, No respiratory distress Cardiovascular: Heart rate NL, Regular rhythm, Heart sounds NL Upper Extremity / MS: Full range of motion, Neurologic intact, Vascular intact tender area where PICC line was placed with palpable nodule Skin: Atraumatic, Color NL, No rash, Warm, Dry Neurologic: Oriented X3, Speech NL, No motor deficits, No sensory deficits Head / Eyes: Atraumatic, Normocephalic, PERRL, EOMI ENT: Atraumatic, Airway patent, Mucous membranes moist Abdomen: Atraumatic, Soft, Non-tender Back: Atraumatic, Full range of motion Lower Extremity / Pelvis / MS: Atraumatic, Full range of motion Psychiatric: Affect NL, Mood NL Interpretation & Diagnostics Interpretation & Diagnostics: US Venous Arm Duplex Unilateral, Right: IMPRESSION: Localized superficial thrombophlebitis at the right antecubital fossa region of palpable concern. No evidence for right upper extremity deep venous thrombosis. Dictated by: Jarrod Youssef M.D. on 06/21/2017 at 21:40 Approved by: Jarrod Youssef M.D. on 06/21/2017 at 21:42 Re-Eval/Medical Decision Med Decision/Clinical Course 52-year-old male with a recent hospitalization for eosinophilic pneumonia presents with tenderness at the site of his PICC line. Ultrasound shows that there is a small area of thrombophlebitis there without extension into the deep veins. He cannot take anti-inflammatory medicines. This will be treated conservatively with elevation and warm compresses. Source of Hx: Old records Re-Evaluation/Progress : Time of Eval: 21:08 Patient Status: Condition improved Re-Evaluation/Progress Note: Pt informed of the diagnosis and plan for discharge during the initial interview. The pt understands and agrees with the plan. All questions are addressed at this time. Counseled Regarding: Diagnosis, Lab results, Need for follow-up, When/why to return to ED Discharge & Departure Impression: Primary Impression: Superficial thrombophlebitis of right upper extremity Disposition: Home Discharge Condition All VS Reviewed: Yes Condition: Stable Patient Instructions: Superficial Thrombophlebitis (ED) Additional Instructions: The ultrasound shows a small blood clot at the site of the PICC line. No further evaluation is necessary at this point. This is not a serious or life- threatening. Tylenol. Warm compresses. No anti-inflammatories because of your other conditions. Referrals: LAISHA MARC DO (PCP) Scribe Attestation Portions of this note were transcribed by Sudhakar Mckenna. I, Dr. Barillas personally performed the history, physical exam and medical decision-making; I reviewed and confirmed the accuracy of the information in the transcribed note. copies to: LAISHA MARC Howard L MD Jun 21, 2017 21:33 SUDHAKAR MCKENNA Jun 21, 2017 21:46
--- NOTE | 2017-06-21 21:44 | DRSVH ---
PROCEDURE: US VENOUS ARM DUPLEX UNILATERAL, RIGHT INDICATIONS: 52 year-old male with swelling at the old PICC site. TECHNIQUE: Real-time imaging, as well as color and pulse Doppler interrogation, was performed of the right upper extremity deep veins from the inferior neck to the antecubital fossa. COMPARISON: None. FINDINGS: The internal jugular vein, visualized portions of the subclavian vein, axillary, and brach ial veins are free of intraluminal thrombus. Where physically possible, the veins are normally compr essible. Color and pulse Doppler demonstrate normal intraluminal flow, with expected phasicity and p ulsatility. Additional scanning of the cephalic and basilic veins of the superficial system demonstr ate normal compressibility, without thrombus. At this spot a palpable abnormality, a small localized noncompressible echogenic thrombus is noted within the subcutaneous tissues of the antecubital fossa. IMPRESSION: Localized superficial thrombophlebitis at the right antecubital fossa region of palpable concern. No evidence for right upper extremity deep venous thrombosis. Dictated by: Jarrod Youssef M.D. on 06/21/2017 at 21:40 Approved by: Jarrod Youssef M.D. on 06/21/2017 at 21:42
[2017-06-21 22:13] VITALS: BP 151/84; PULSE 82; RESP 20; O2SAT 99
== END 2017-06-21 22:14 | disposition home or self-care (01) ==
LOC: SED 19:38
DX: I80.8 Phlebitis and thrombophlebitis of other sites (principal); Z86.72 Personal history of thrombophlebitis; Z87.01 Personal history of pneumonia (recurrent); Z98.890 Other specified postprocedural states; Z88.6 Allergy status to analgesic agent
CPT/HCPCS: 93971; 99284; G0463